=== PATIENT | female | born 1955 | race Caucasian/White ===

== ENCOUNTER → 2017-12-26 10:53 | Outpatient (CLI) | payer OTHER, SELFPAY ==
[2017-12-26 12:42] LABS: Alanine Aminotransferase 45 IU/L (9-52); Albumin 4.3 g/dL (3.5-5.0); Albumin Globulin Ratio 1.3 (1.0-2.8); Alkaline Phosphatase 77 U/L (38-126); Aspartate Aminotransferase 40 IU/L (14-36); Bilirubin Total 1.1 mg/dL (0.2-1.3); Bilirubin Unconjugated 0.7 mg/dL (0.0-1.1); Cholesterol 227 mg/dL (140-199); Globulin 3.2 g/dL (1.7-4.1); HDL Cholesterol 55 mg/dL (40-60); HEMOLYSIS < 15 (0-50); LDL Cholesterol Calculated 151 mg/dL (<100); Total Protein 7.5 g/dL (6.3-8.2); Triglycerides 106 mg/dL (35-150)
[2017-12-26 12:55] LABS: Free T3, Triiodothyronine Free 3.97 pg/mL (2.77-5.27); Free T4, Direct Thyroxine 1.57 ng/dL (0.78-2.19)
[2017-12-26 13:09] LABS: Thyroid Stimulating Hormone 0.31 uIU/mL (0.47-4.68)
== END ==
PROVIDERS: PCP Family Medicine; Visit Provider Family Medicine
DX: E78.5 Hyperlipidemia, unspecified (principal); R79.89 Other specified abnormal findings of blood chemistry; R94.5 Abnormal results of liver function studies
CPT/HCPCS: 36415; 80061; 80076; 84439; 84443; 84481

== ENCOUNTER → 2018-02-23 10:59 | Outpatient (CLI) | payer OTHER, SELFPAY ==
--- NOTE | 2018-02-23 11:00 | DI.MG.S_ITS ---
BILATERAL DIGITAL SCREENING MAMMOGRAM 3D/2D WITH CAD: 02/23/2018 CLINICAL: Routine screening. Comparison is made to exams dated: 04/12/2015 mammogram, 08/22/2006 mammogram, and 07/24/2005 mammogram - [facility]. The tissue of both breasts is heterogeneously dense. This may lower the sensitivity of mammography. Current study was also evaluated with a Computer Aided Detection (CAD) system. No significant masses, calcifications, or other findings are seen in either breast. There has been no significant interval change. IMPRESSION: NEGATIVE There is no mammographic evidence of malignancy. A 1 year screening mammogram is recommended. This exam was interpreted at Station ID: [id number]. NOTE: For mammograms, a report in lay terms will be sent to the patient. Approximately 15% of breast malignancies will not be visualized mammographically. In the management of a palpable breast mass, a negative mammogram must not discourage biopsy of a clinically suspicious lesion. Electronically Signed By: Brittani calderon/yanick:02/23/2018 12:34:26 letter sent: Normal Exam ACR BI-RADS Category 1: Negative [id number]
== END ==
PROVIDERS: Family Provider Internal Medicine Nephrology; PCP Family Medicine; Visit Provider Family Medicine
DX: Z12.31 Encounter for screening mammogram for malignant neoplasm of breast (principal)
CPT/HCPCS: 77063; 77067

== ENCOUNTER → 2018-07-22 11:10 | Outpatient (CLI) | payer OTHER, SELFPAY ==
--- NOTE | 2018-07-22 12:12 | DI.CT.S_ITS ---
PROCEDURE: CT ABDOMEN WO/W CON, CT PELVIS WITH CONTRAST INDICATIONS: cystinuria, pyelonephritis, obstructed calculus TECHNIQUE: Optional 5 mm thick noncontrast images acquired from the diaphragm to the iliac crests. After the administration of intravenous contrast, 5 mm thick images again acquired from the diaphragm to the iliac crests in the arterial and urographic phases. 5 mm thick coronal and sagittal reformats were then acquired. For radiation dose reduction, the following was used: automated exposure control, adjustment of mA and/or kV according to patient size. A CT of the pelvis with contrast was performed on the urographic phase. [facility] 03[facility]07[facility]2006, 16:35. FINDINGS: Image quality: Excellent. Lung bases: 5 mm noncalcified pulmonary nodule is identified in the right middle lobe on axial image 3 of series 6, in the left lower lobe on axial image 11 of series 6, and in the left lower lobe on axial image 14 of series 6. Heart size is normal. Genitourinary: There are postsurgical changes from prior right nephrectomy. There is a transplant kidney in the right hemipelvis. There is moderate perinephric fat stranding surrounding the right transplant kidney. There is heterogeneous enhancement of the right transplant renal parenchyma concerning for pyelonephritis there are large renal calculi within the transplant renal pelvis, largest measuring up to 2.5 cm in greatest diameter. There is a 0.9 cm oval hypoattenuating focus in the right transplant renal cortex on axial image 62 of series 5 that demonstrates partial peripheral contrast enhancement. There is no trip hydronephrosis of the right transplant kidney There are multiple nonobstructing nephroliths within the left kidney, largest measuring up to 3 mm in size in the anterior left kidney. No hydronephrosis. Subcentimeter hypoattenuating foci within the left kidney demonstrates no contrast enhancement and are most consistent with renal cysts. Excreted contrast identified within the bladder. no bladder stones or masses are identified. Other solid organs: Liver demonstrates diffuse hypoattenuation consistent with hepatic steatosis but is otherwise normal in size. Gallbladder demonstrates biliary sludge. Biliary system is non dilated. Pancreas enhances normally. Spleen is normal in size and enhancement. No adrenal nodules. Peritoneum and bowel: Unenhanced bowel loops are normal in wall thickness and caliber. No free fluid or air. A normal appendix is seen immediately anterior to the right hemipelvic transplant kidney. Nodes and vessels: No retroperitoneal or mesenteric adenopathy by size criteria. Aorta and inferior vena cava are normal in caliber. There is moderate calcified plaque of the abdominal aorta and branch vessels. Bones: No suspicious bony lesions. No vertebral body compression fractures. There is 3 mm of anterolisthesis of L4 on L5 secondary to lower lumbar spine facet arthropathy. Miscellaneous: There is a 1.0 cm fat-containing umbilical hernia. The uterus is present. No abnormal adnexal masses are identified. IMPRESSION: 1. Heterogeneous enhancement of the right transplant kidney concerning for pyelonephritis. A 0.9 cm hypoattenuating focus within the right transplant renal cortex may represent a cyst or developing abscess. Large renal calculi within the right transplant renal pelvis measure up to 2.5 cm in greatest diameter. No trip hydronephrosis of the right transplant kidney. Correlation with urinalysis recommended. 2. Nonobstructing nephroliths within the left kidney. No left hydronephrosis. 3. Multiple 5 mm bibasilar pulmonary nodules. A followup CT of the chest in 6 months is recommended to demonstrate stability. Findings and recommendations discussed with referring provider Dr. Jasmin Camarillo by telephone by Dr. Gan at approximately 2:50 PM on 07/22/2018. Dictated by: Gavino Gan M.D. on 07/22/2018 at 14:15 Approved by: Gavino Gan M.D. on 07/22/2018 at 15:02
== END ==
PROVIDERS: Family Provider Internal Medicine Nephrology; PCP Family Medicine; Visit Provider Family Medicine
DX: E72.01 Cystinuria (principal); N12 Tubulo-interstitial nephritis, not specified as acute or chronic; Z87.442 Personal history of urinary calculi
CPT/HCPCS: 36415; 74170; 80053; 85027; 87077; 87086; 87186; Q9967

== ENCOUNTER → 2018-07-22 11:58 | Outpatient (CLI) | payer OTHER, SELFPAY ==
[2018-07-22 12:16] LABS: Hematocrit 45.4 % (36-46); Hemoglobin 15.6 g/dL (12.0-16.0); Mean Corpuscular HGB Conc 34.3 % (30-36); Mean Corpuscular Hemoglobin 31.3 PG (26-34); Mean Corpuscular Volume 91.2 fL (80-100); Platelet Count 218 X10^3/uL (150-400); Red Blood Cell Count 4.97 X10^6/uL (4.0-5.2); Red Cell Distribution Width 12.7 % (11.6-14.8); White Blood Cell Count 10.9 X10^3/uL (4.5-11.0)
[2018-07-22 12:46] LABS: Alanine Aminotransferase 27 IU/L (9-52); Albumin 4.1 g/dL (3.5-5.0); Albumin Globulin Ratio 1.3 (1.0-2.8); Alkaline Phosphatase 76 U/L (38-126); Aspartate Aminotransferase 21 IU/L (14-36); BUN Creatinine Ratio 16.7 (6-22); Bilirubin Total 0.9 mg/dL (0.2-1.3); Blood Urea Nitrogen 20 mg/dL (7-17); Calcium 8.7 mg/dL (8.4-10.2); Carbon Dioxide 27 mmol/L (22-32); Chloride 94 mmol/L (98-107); Estimated Glomerular Filt Rate 45.7 mL/min (>60); Globulin 3.2 g/dL (1.7-4.1); Glucose 102 mg/dL (80-110); HEMOLYSIS < 15 (0-50); Potassium 4.1 mmol/L (3.4-5.1); Sodium 133 mmol/L (137-145); Total Protein 7.3 g/dL (6.3-8.2)
== END ==
PROVIDERS: Family Provider Internal Medicine Nephrology; PCP Family Medicine; Visit Provider Family Medicine
DX: E72.01 Cystinuria (principal); N12 Tubulo-interstitial nephritis, not specified as acute or chronic; Z87.442 Personal history of urinary calculi
CPT/HCPCS: 36415; 80053; 85027

== ENCOUNTER 2018-10-18 00:07 | Emergency (ER) | payer OTHER, SELFPAY ==
[2018-10-18 00:12] VITALS: BP 177/92; PULSE 96; RESP 22; TEMP 37; O2SAT 100; BMI 30.9
[2018-10-18] MEDS: methylPREDNISolone 125 MG/2 ML VIAL IV (00:20)
[2018-10-18] MEDS: FAMOTIDINE 20 MG/50 ML PIGGYBACK 200 MG IV (00:20)
--- NOTE | 2018-10-18 00:26 | ED_ITS ---
HPI - Allergic Reaction General Chief complaint: Allergic Reaction Stated complaint: Allergic Reaction Time Seen by Provider: 10/18/18 00:10 Source: patient Mode of arrival: EMS Limitations: no limitations History of Present Illness HPI narrative: Patient is a 62-year-old female. 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 She is not currently on steroids. Here for evaluation of a potential allergic reaction. Patient states that this evening she took 1st dose of Bactrim which initially she stated that she has taken in the past however after further evaluation she stated that was potentially her who has taken Bactrim in the past and not herself. This was prescribed by her primary doctor to take ?in case ?she ever develops any urinary tract symptoms because she has had complications with this in the past. She states that she started to develop dysuria so took a dose of the Bactrim earlier. She states that fairly shortly afterwards she started having problems breathing. Was having heaviness in her chest. Was having rashes. No nausea vomiting. Not 1 was called. They did give her Benadryl and also epinephrine prior to arrival. Upon arrival here in the emergency department she stated her symptoms were not completely gone but were improving tremendously. Related Data Home Medications Medication Instructions Recorded Confirmed gabapentin [Neurontin] 300 mg PO BID #0 07/30/17 09/16/18 hydrocodone 10 mg-acetaminophen 1 tab PO QID PRN 07/22/18 09/16/18 325 mg tablet Previous Rx's Medication Instructions Recorded atenolol 25 mg tablet 25 mg PO QDAY #90 tab 12/18/17 sulfamethoxazole 800 1 tab PO BID #14 tab 09/16/18 mg-trimethoprim 160 mg tablet epinephrine [EpiPen 2-Patricio] 0.3 mg IM Q10M PRN #1 each 10/18/18 Allergies Allergy/AdvReac Type Severity Reaction Status Date / Time sulfamethoxazole Allergy Severe Anaphylaxis Verified 10/18/18 00:49 [From Bactrim] trimethoprim [From Bactrim] Allergy Severe Anaphylaxis Verified 10/18/18 00:49 ciprofloxacin [CIPROFLOXACIN] Allergy Unknown Verified 09/16/18 11:55 PENICILLIN Allergy Unknown Uncoded 07/22/18 10:41 Review of Systems Constitutional Denies fever(s) ENT Ears, Nose, Mouth, and Throat: Reports lip swelling, Reports sore throat, Reports throat swelling and Reports tongue swelling Cardiovascular Reports dyspnea Comments: Chest heaviness Respiratory Reports dyspnea Gastrointestinal Gastrointestinal: Denies abdominal pain, Denies nausea and Denies vomiting Integumentary/Breasts Reports rash Neurologic Denies behavioral changes Psychiatric Denies behavioral changes Allergic/Immunologic Reports urticaria, Reports lip swelling, Reports throat swelling and Reports tongue swelling [facility] Medical History Hyperlipemia (Acute ~07/2017) Cystinuria (Chronic) Eczema (Chronic) Hypertension (Chronic) Kidney stones (Chronic) Rosacea (Chronic) Chickenpox (Resolved 1963) Fractures (Resolved 2014) Mumps (Resolved 1964) Social History Smoking Status: Never smoker alcohol intake: never Exam Initial Vital Signs Initial Vital Signs: Vital Signs Temperature 98.6 F 10/18/18 00:12 Pulse Rate 96 H 10/18/18 00:12 Respiratory Rate 22 10/18/18 00:12 Blood Pressure 177/92 H 10/18/18 00:12 Pulse Oximetry 100 10/18/18 00:12 Const General: cooperative, well developed, well groomed and No acute distress Orientation: alert, awake and oriented x3 HENMT Head: normal to inspection and normocephalic Nose: external nose normal Face and sinus: normal facial exam Mouth: oral mucosae normal Resp Effort & Inspection: normal respiratory effort Auscultation: clear to auscultation bilaterally Cardio Rate: regular rate Rhythm: regular rhythm Skin Lesions: no lesions Neuro General: alert and awake Cognition: normal cognition Speech: speech normal Extrem General: normal to inspection and capillary refill normal Psych Appearance: grossly normal and well kempt Course Orders Ordered: Discontinued Medications Famotidine (Pepcid) 20 mg in 50 mls @ 200 mls/hr IV NOW ONE Stop: 10/18/18 00:31 Last Infusion: 10/18/18 00:35 Dose: 0 mls/hr Admin: 10/18/18 00:20 Dose: 200 mls/hr Methylprednisolone (Solu-Medrol 125 Mg Vial) 125 mg IV NOW ONE Stop: 10/18/18 00:17 Last Admin: 10/18/18 00:20 Dose: 125 mg Vital Signs - 8 hr 10/18/18 00:12 10/18/18 00:52 10/18/18 01:30 Temperature 98.6 F Pulse Rate 96 H 82 79 Respiratory Rate 22 20 17 Blood Pressure 177/92 H Blood Pressure [Right Arm] 167/85 H 176/85 H Pulse Oximetry 100 97 97 MDM - Allergic Reaction MDM Narrative Medical decision making narrative: Patient was given famotidine and steroids here in the emergency department. She reported a complete resolution of her symptoms. Was observed here in the emergency department for 2 hours after she was given the epinephrine by EMS. We did discuss staying here in the emergency department longer for that there out occult concern of a rebound and a full axis however the patient stated that she did not want to stay and understood the risks of going home. Upon further evaluation does appear this was the 1st time that she has taken Bactrim. Informed her that she should not take this medication in the future. She stated that initially she thought she was have an symptoms consistent with urinary tract infection however she does not think that that is the case now. Will hold on switching any antibiotics. She states she will contact her primary provider for a follow-up. She was given a prescription for an EpiPen. She is given return precautions and follow-up instructions. She expressed understanding and agreement with plan. Discharge Plan Departure Patient Disposition: Home Clinical Impression: Anaphylaxis Qualifiers: Encounter type: initial encounter Qualified Code(s): T78.2XXA - Anaphylactic shock, unspecified, initial encounter Allergic reaction Qualifiers: Encounter type: initial encounter Qualified Code(s): T78.40XA - Allergy, unspecified, initial encounter Discharge Date/Time: 10/18/18 01:50 Interventions: ED Discharge Assessment Last Done: 10/18/18 01:50 Instructions: DI for Anaphylaxis, DI for Adverse Drug Reaction -- Allergic Activity Restrictions/Additional Instructions: I would recommend that you consider yourself allergic to Bactrim. Contact your primary care doctor for a follow-up. Return to the emergency department for any new or worsening symptoms like we discussed. Prescriptions: New epinephrine [EpiPen 2-Patricio] 0.3 mg/0.3 mL auto-injector 0.3 mg IM Q10M PRN (Reason: anaphylaxis) Qty: 1 RF: 0 No Action hydrocodone-acetaminophen [[place]] 10-325 mg tablet 1 tab PO QID PRNRF: 0 gabapentin [Neurontin] 600 MG tablet 300 mg PO BID Qty: 0 RF: 0 atenolol 25 mg tablet 25 mg PO QDAY Qty: 90 RF: 0 sulfamethoxazole-trimethoprim [Bactrim DS] 800-160 mg tablet 1 tab PO BID Qty: 14 RF: 1 Referrals: Jasmin Camarillo DO [Primary Care Provider] -
[2018-10-18 00:52] VITALS: BP 167/85; PULSE 82; RESP 20; O2SAT 97
[2018-10-18 01:30] VITALS: BP 176/85; PULSE 79; RESP 17; O2SAT 97
== END 2018-10-18 01:50 | disposition home or self-care (01) ==
PROVIDERS: Emergency Provider Emergency Medicine; Family Provider Internal Medicine Nephrology; PCP Family Medicine
DX: T78.2XXA Anaphylactic shock, unspecified, initial encounter (principal); T78.40XA Allergy, unspecified, initial encounter
CPT/HCPCS: 96374; 96375; 99283; 99284; J2930

== ENCOUNTER → 2019-02-23 13:52 | Outpatient (CLI) | payer OTHER, SELFPAY ==
--- NOTE | 2019-02-23 13:54 | DI.RAD.S_ITS ---
PROCEDURE: XR ANKLE RT MIN 3V INDICATIONS: ankle pain TECHNIQUE: 3 views of the ankle were acquired. COMPARISON: [facility], , ANKLE 3 VIEWS LEFT, 05/03/2014, 12:18. FINDINGS: Bones: No fractures or dislocations. Ankle mortise is normally aligned. No suspicious bony lesions. Soft tissues: Mild swelling over both malleoli. Small tibiotalar joint effusion. Achilles tendon appears normal. IMPRESSION: No acute osseous abnormality. Swelling over both malleoli and small tibiotalar joint effusion. Dictated by: Orlin Acuña M.D. on 02/23/2019 at 14:26 Approved by: Orlin Acuña M.D. on 02/23/2019 at 14:29
--- NOTE | 2019-02-23 13:54 | DI.RAD.S_ITS ---
PROCEDURE: XR FOOT RT MIN 3V INDICATIONS: ankle pain TECHNIQUE: 3 views of the foot were acquired. COMPARISON: Same day right ankle radiographs. FINDINGS: Bones: Oblique fracture through the distal one third of the fifth metatarsal shaft. Minimal displacement. No dislocations. No suspicious bony lesions. Soft tissues: No tibiotalar joint effusion. Achilles tendon appears normal. IMPRESSION: Right fifth metatarsal shaft fracture with minimal displacement. Dictated by: Orlin Acuña M.D. on 02/23/2019 at 14:29 Approved by: Orlin Acuña M.D. on 02/23/2019 at 14:31
== END ==
PROVIDERS: Family Provider Internal Medicine Nephrology; PCP Family Medicine; Visit Provider Nurse Practitioner
DX: M25.571 Pain in right ankle and joints of right foot (principal); S92.351A Displaced fracture of fifth metatarsal bone, right foot, initial encounter for closed fracture; M25.471 Effusion, right ankle
CPT/HCPCS: 73610; 73630

== ENCOUNTER → 2019-04-30 07:39 | Outpatient (CLI) | payer OTHER, SELFPAY ==
[2019-04-30 08:51] LABS: Add Manual Diff / Slide Review NO; Basophils Absolute Auto 100 /uL (0-100); Basophils Percent Auto 0.8 % (0-2); Eosinophils Absolute Auto 300 /uL (0-450); Eosinophils Percent Auto 4.9 % (2-4); Hematocrit 44.7 % (36-46); Hemoglobin 15.3 g/dL (12.0-16.0); Lymphocytes Absolute Auto 2000 /uL (1100-4500); Lymphocytes Percent Auto 32.1 % (25-40); Mean Corpuscular HGB Conc 34.2 % (30-36); Mean Corpuscular Hemoglobin 31.8 PG (26-34); Monocytes Absolute Auto 500 /uL (0-900); Monocytes Percent Auto 8.1 % (3-14); Neutrophils Absolute Auto 3300 /uL (1500-7000); Neutrophils Percent Auto 54.1 % (50-75); Platelet Count 217 X10^3/uL (150-400); Red Cell Distribution Width 13.6 % (11.6-14.8); White Blood Cell Count 6.2 X10^3/uL (4.5-11.0)
[2019-04-30 09:11] LABS: Alanine Aminotransferase 33 IU/L (<35); Albumin 4.4 g/dL (3.5-5.0); Albumin Globulin Ratio 1.3 (1.0-2.8); Alkaline Phosphatase 62 U/L (38-126); Aspartate Aminotransferase 34 IU/L (14-36); Bilirubin Total 1.1 mg/dL (0.2-1.3); Blood Urea Nitrogen 19 mg/dL (7-17); Calcium 9.3 mg/dL (8.4-10.2); Carbon Dioxide 33 mmol/L (22-32); Chloride 100 mmol/L (98-107); Cholesterol 252 mg/dL (140-199); Estimated Glomerular Filt Rate 56.2 mL/min (>60); Globulin 3.5 g/dL (1.7-4.1); Glucose 99 mg/dL (80-110); HDL Cholesterol 47 mg/dL (40-60); HEMOLYSIS < 15 (0-50); LDL Cholesterol Calculated 182 mg/dL (<100); Potassium 4.2 mmol/L (3.4-5.1); Sodium 140 mmol/L (137-145); Total Protein 7.9 g/dL (6.3-8.2); Triglycerides 117 mg/dL (35-150); Uric Acid 7.2 mg/dL (2.5-6.2)
[2019-04-30 09:28] LABS: Free T4, Direct Thyroxine 1.26 ng/dL (0.78-2.19)
[2019-04-30 09:42] LABS: Thyroid Stimulating Hormone 0.65 uIU/mL (0.47-4.68)
== END ==
PROVIDERS: Family Provider Internal Medicine Nephrology; PCP Family Medicine; Visit Provider Family Medicine
DX: E72.01 Cystinuria (principal); E78.5 Hyperlipidemia, unspecified; E79.0 Hyperuricemia without signs of inflammatory arthritis and tophaceous disease; N28.9 Disorder of kidney and ureter, unspecified; R79.89 Other specified abnormal findings of blood chemistry
CPT/HCPCS: 36415; 80053; 80061; 84439; 84443; 84481; 84550; 85025

== ENCOUNTER 2020-01-06 05:14 | Inpatient (IN) | payer OTHER, SELFPAY ==
[2020-01-06] VITALS (14 sets, daily range): BP systolic 111–196; BP diastolic 66–111; PULSE 98–130; RESP 16–31; TEMP 36.6–37.8; O2SAT 94–100; BMI 29.1
--- NOTE | 2020-01-06 05:17 | ED_ITS ---
HPI - General Adult General Chief complaint: Abdominal Pain Stated complaint: RLQ pain Time Seen by Provider: 01/06/20 05:16 Source: patient Mode of arrival: EMS Limitations: no limitations History of Present Illness HPI narrative: Patient is a 64-year-old female here for evaluation of right lower quadrant abdominal pain. Patient's history significant that she recently was placed on doxycycline for treatment of rosacea. She stated that she only took this medication for very short period of time and developed abdominal pain and nausea vomiting and diarrhea. She quit taking this medication approximately 3 days ago because of these symptoms. She has had diarrhea since then. States that last evening she had right lower quadrant pain that became acutely worse. Nausea and vomiting associated with this. EMS was called and brought her to the emergency department. She received 200 micro g of fentanyl and IV fluids prior to arrival. In route here to the emergency department patient developed acute right shoulder pain. She also now has pain in her right upper quadrant. Patient has had multiple kidney stones in the past. Has had a auto transplant of her right kidney in her right lower quadrant secondary to this. She states this does not feel like prior kidney stones. Last oral intake was before midnight last evening. She states that was only a very small sip of water. Before that her last meal was 24 hours ago. Related Data Home Medications Medication Instructions Recorded Confirmed hydrocodone 10 mg-acetaminophen 1 tab PO QID PRN 07/22/18 02/23/19 325 mg tablet Previous Rx's Medication Instructions Recorded epinephrine 0.3 mg/0.3 mL 0.3 mg IM Q10M PRN #1 each 10/26/18 injection, auto-injector atenolol 25 mg tablet 25 mg PO QDAY #90 tab 07/06/19 Allergies Allergy/AdvReac Type Severity Reaction Status Date / Time sulfamethoxazole Allergy Severe Anaphylaxis Verified 05/19/19 08:12 [From Bactrim] trimethoprim [From Bactrim] Allergy Severe Anaphylaxis Verified 05/19/19 08:12 ciprofloxacin [CIPROFLOXACIN] Allergy Unknown Verified 05/19/19 08:12 Penicillins Allergy Unknown Verified 01/06/20 06:43 PENICILLIN Allergy Unknown Uncoded 05/19/19 08:12 Review of Systems Constitutional Constitutional: Reports fever(s) Cardiovascular Cardiovascular: Denies chest pain Respiratory Respiratory: Reports pain on inspiration Gastrointestinal Gastrointestinal: Reports abdominal pain, Denies melena, Denies hematochezia, Reports diarrhea, Reports nausea and Reports vomiting Genitourinary Genitourinary: Denies dysuria Genitourinary: Denies dysuria and Denies vaginal discharge Musculoskeletal Musculoskeletal: Denies arthralgias and Denies myalgias Integumentary/Breasts Skin/Breast: Denies rash Neurologic Neurologic: Denies behavioral changes Psychiatric Psychiatric: Denies behavioral changes Hematologic/Lymphatic Hematologic/Lymphatic: Denies easy bleeding and Denies easy bruising Allergic/Immunologic Allergic/Immunologic: Denies urticaria Patient History Medical History Chickenpox (Resolved 1963) Cystinuria (Chronic) Eczema (Chronic) Fractures (Resolved 2014) Hyperlipemia (Acute ~07/2017) Hypertension (Chronic) Kidney stones (Chronic) Mumps (Resolved 1964) Rosacea (Chronic) Surgical History Hx of lithotripsy (Resolved ~1985) Hx of surgical procedure (Resolved) Hx of tonsillectomy (Resolved) Status post kidney autotransplantation (Resolved 1987) Family History Father Cancer Mother No problems noted. Social History Smoking Status: Never smoker alcohol intake: never Smoking Status: Never smoker Substance Use Type: does not use Exam Initial Vital Signs Initial Vital Signs: Vital Signs Temperature 99.5 F 01/06/20 05:21 Pulse Rate 124 H 01/06/20 05:21 Respiratory Rate 24 01/06/20 05:21 Blood Pressure 196/91 H 01/06/20 05:21 Pulse Oximetry 95 01/06/20 05:21 Const General: cooperative, No comfortable, in distress and disheveled Limitations: mental status not altered HENWV Head: normal to inspection and normocephalic Resp Effort & Inspection: normal respiratory effort Auscultation: clear to auscultation bilaterally Cardio Rate: tachycardic Rhythm: regular rhythm GI Inspection: non-distended Palpation: soft and tender (Right lower quadrant and right upper quadrant) Back/Spine/Pelvis Back: No CVA tenderness Skin Other: Rash on face consistent with rosacea Neuro General: patient alert and patient awake Cognition: normal cognition Speech: speech normal Extrem General: normal to inspection, capillary refill normal and No edema Psych Appearance: grossly normal and well kempt Scores GCS [place] coma scale eye opening: Spontaneous [place] coma scale verbal response: Orientated [place] coma scale motor response: Obey commands [place] coma scale total score: 15 Course Orders Ordered: ED Orders 01/06/20 05:00 Complete Blood Count AUTO DIFF Stat Comprehensive Metabolic Panel Stat Lipase Stat 01/06/20 05:18 CT abdomen pelvis w con Stat 01/06/20 05:24 EKG-12 Lead Stat 01/06/20 06:30 COVID19 -ED/INPAT/OR/L&D Stat 01/06/20 06:36 Consult to General Surgery Urgent Hydromorphone HCl (Dilaudid) 1 mg IV Q4HR PRN PRN Reason: Pain, Mild (1-3) Meropenem (Merrem) 1 gm in 50 mls @ 100 mls/hr IV NOW ONE Stop: 01/06/20 07:04 Sodium Chloride (Normal Saline 0.9%) 1,000 mls @ 125 mls/hr IV CONT NASRIN Ondansetron HCl (Zofran) 4 mg IV Q4HR PRN PRN Reason: Nausea And Vomiting Discontinued Medications Hydromorphone HCl (Dilaudid) 1 mg IV NOW ONE Stop: 01/06/20 06:11 Last Admin: 01/06/20 06:14 Dose: 1 mg Documented by: YVONNE Sodium Chloride (Normal Saline 0.9%) 1,000 mls @ 1,000 mls/hr IV BOLUS ONE Stop: 01/06/20 06:17 Last Admin: 01/06/20 05:36 Dose: 1,000 mls/hr Documented by: YVONNE Ondansetron HCl (Zofran) 4 mg IV NOW ONE Stop: 01/06/20 05:29 Last Admin: 01/06/20 05:35 Dose: 4 mg Documented by: YVONNE Vital Signs Vital signs: Vital Signs - 8 hr 01/06/20 05:21 01/06/20 05:45 01/06/20 06:18 Temperature 99.5 F Pulse Rate 124 H 120 H 122 H Respiratory Rate 24 24 24 Blood Pressure 196/91 H 180/86 H 186/84 H Pulse Oximetry 95 98 98 Medical Decision Making Lab Data Lab results reviewed: Yes I reviewed the patient's lab results. Result diagrams: 01/06/20 05:00 01/06/20 05:00 Labs: Lab Results 01/06/20 01/06/20 01/06/20 Range/Units 05:00 05:00 05:00 WBC 19.5 H (4.5-11.0) X10^3/uL RBC 4.74 (4.0-5.2) X10^6/uL Hgb 15.2 (12.0-16.0) g/dL Hct 44.4 (36-46) % MCV 93.7 (80-100) fL MCH 32.1 (26-34) PG MCHC 34.3 (30-36) % RDW 13.0 (11.6-14.8) % Plt Count 218 (150-400) X10^3/uL Neut % (Auto) 79.1 H (50-75) % Lymph % (Auto) 11.7 L (25-40) % [place] % (Auto) 8.6 (3-14) % Eos % (Auto) 0.5 L (2-4) % Baso % (Auto) 0.1 (0-2) % Neut # (Auto) 19864 H (7491-4361) /uL Lymph # (Auto) 2300 (3670-4430) /uL [place] # (Auto) 1700 H (0-900) /uL Eos # (Auto) 100 (0-450) /uL Baso # (Auto) 0 (0-100) /uL Sodium 134 L (137-145) mmol/L Potassium 3.7 (3.4-5.1) mmol/L Chloride 96 L (98-107) mmol/L Carbon Dioxide 27 (22-32) mmol/L BUN 16 (7-17) mg/dL Creatinine 1.14 H (0.52-1.04) mg/dL Estimated GFR 48.1 L (>60) mL/min BUN/Creatinine Ratio 14.0 (6-22) Glucose 179 H (80-110) mg/dL Calcium 9.1 (8.4-10.2) mg/dL Total Bilirubin 1.8 H (0.2-1.3) mg/dL AST 38 H (14-36) IU/L ALT 59 H (<35) IU/L Alkaline Phosphatase 88 (38-126) U/L Total Protein 8.3 H (6.3-8.2) g/dL Albumin 4.3 (3.5-5.0) g/dL Globulin 4.0 (1.7-4.1) g/dL Albumin/Globulin Ratio 1.1 (1.0-2.8) Lipase 52 (23-300) U/L Imaging Data CT scan - abdomen/pelvis: Radiologist's Impression: Appendix is dilated with extensive periappendiceal him pericecal inflammatory changes compatible with acute appendicitis with likely rupture given the ted of pneumoperitoneum within the right upper abdomen. Right lower quadrant transplant kidney with staghorn calculi. Postsurgical findings of right nephrectomy. Hepatic steatosis. ECG Data Attestation: I personally reviewed and interpreted this ECG as follows: Prior ECG tracings: not available for review Interpretation: Sinus tachycardia Ventricular rate 122 LVH Normal QRS Normal QTC No ST T wave changes MDM Narrative Medical decision making narrative: Patient very uncomfortable upon exam. Initially started with right lower quadrant pain but now has right upper quadrant pain as well. Tachycardic. Leukocytosis. CT scan shows findings consistent with appendicitis with likely rupture given the pneumoperitoneum in the right upper quadrant. This is most likely cause of her right shoulder pain. Discussed the case with Dr. Pérez with General surgery who will admit. Patient does have a allergy to penicillin. Meropenem was ordered per his recommendation. Discussed the findings on the CT scan with the patient and the need for admission and surgical intervention. Patient expressed understanding and agreement. Discharge Plan Departure Patient Disposition: Admitted As Inpatient Clinical Impression: Acute appendicitis Qualifiers: Acute appendicitis type: with localized peritonitis Appendicitis gangrene presence: without gangrene Appendicitis perforation presence: with perforation Appendicitis abscess presence: without abscess Qualified Code(s): K35.32 - Acute appendicitis with perforation and localized peritonitis, without abscess Referrals: Jasmin Camarillo DO [Primary Care Provider] -
--- NOTE | 2020-01-06 05:18 | DI.CT.S_ITS ---
PROCEDURE: CT ABDOMEN PELVIS W CON INDICATIONS: Right lower quadrant abdominal pain TECHNIQUE: After the administration of intravenous contrast, 5 mm thick sections acquired from the diaphragm to the symphysis. 5 mm coronal and sagittal reformats were acquired. For radiation dose reduction, the following was used: automated exposure control, adjustment of mA and/or kV according to patient size. COMPARISON: [facility], CT, CT ABDOMEN WO/W CON, 07/22/2018, 12:47. FINDINGS: Image quality: Excellent. ABDOMEN: Lung bases: A few small pulmonary nodules at the lung bases, unchanged since 07/22/2018. No pleural effusion. Heart size is normal. Coronary artery calcifications. Solid organs: Liver is normal in size. Hepatic steatosis. Gallbladder is unremarkable. Biliary system is non dilated. Pancreas enhances normally. Spleen is normal in size and enhancement. No adrenal nodules. Right nephrectomy with trace free air under the right lobe of the liver. Left kidney enhancement is within normal limits. A small simple cyst in the left kidney. Cortical hypodensities which are too small to further characterize. Punctate nonobstructing kidney stone left kidney. No hydronephrosis. Transplant kidney in the right lower quadrant with expected enhancement. There is mild to moderate fat stranding and trace fluid density surrounding the transplant kidney, increased. The transplant kidney demonstrates areas of cortical scarring and the small renal cysts. The staghorn calculi involving the transplant kidney, similar to before. No hydronephrosis of the transplant kidney. Peritoneum and bowel: The appendix in the right lower quadrant is dilated measuring up to 1.4 cm. There is a large appendicoliths. There is a surrounding inflammatory change and trace free fluid. This extends to the adjacent right lower quadrant transplant kidney and in the pericolic gutter punctate focus of free air underneath the right lobe of the liver. No small bowel obstruction. Nodes and vessels: No retroperitoneal or mesenteric adenopathy by size criteria. Aorta and inferior vena cava are normal in size. Calcified atherosclerotic plaque. Miscellaneous: No ventral hernias. PELVIS: Genitourinary: Right dome ureteral insertion. Bladder is only partially distended. Miscellaneous: No inguinal hernias or adenopathy. Bones: No suspicious bony lesions. No vertebral body compression fractures. IMPRESSION: 1. Acute appendicitis with suspected rupture given the punctate focus of gas under the right lobe of the liver. Mild free fluid surrounding the appendix. 2. Right lower quadrant transplant kidney. No hydronephrosis. Similar staghorn calculi. Additional findings: Right nephrectomy. Hepatic steatosis. This report is concordant with the overnight preliminary interpretation. Dictated by: Orlin Acuña M.D. on 01/06/2020 at 8:24 Approved by: Orlin Acuña M.D. on 01/06/2020 at 8:46
[2020-01-06] MEDS: ONDANSETRON 4 MG/2 ML INJ IV (05:35)
[2020-01-06] MEDS: SODIUM CHLORIDE 0.9% 1,000 ML 1000 ML IV ×2 (05:36→20:34)
[2020-01-06 05:39] LABS: Add Manual Diff / Slide Review NO; Alanine Aminotransferase 59 IU/L (<35); Albumin 4.3 g/dL (3.5-5.0); Albumin Globulin Ratio 1.1 (1.0-2.8); Alkaline Phosphatase 88 U/L (38-126); Aspartate Aminotransferase 38 IU/L (14-36); Basophils Absolute Auto 0 /uL (0-100); Basophils Percent Auto 0.1 % (0-2); Bilirubin Total 1.8 mg/dL (0.2-1.3); Blood Urea Nitrogen 16 mg/dL (7-17); Calcium 9.1 mg/dL (8.4-10.2); Carbon Dioxide 27 mmol/L (22-32); Chloride 96 mmol/L (98-107); Eosinophils Absolute Auto 100 /uL (0-450); Eosinophils Percent Auto 0.5 % (2-4); Estimated Glomerular Filt Rate 48.1 mL/min (>60); Glucose 179 mg/dL (80-110); HEMOLYSIS < 15 (0-50); Hematocrit 44.4 % (36-46); Hemoglobin 15.2 g/dL (12.0-16.0); Lipase 52 U/L (23-300); Lymphocytes Absolute Auto 2300 /uL (1100-4500); Lymphocytes Percent Auto 11.7 % (25-40); Mean Corpuscular HGB Conc 34.3 % (30-36); Mean Corpuscular Hemoglobin 32.1 PG (26-34); Mean Corpuscular Volume 93.7 fL (80-100); Monocytes Absolute Auto 1700 /uL (0-900); Monocytes Percent Auto 8.6 % (3-14); Neutrophils Absolute Auto 15400 /uL (1500-7000); Neutrophils Percent Auto 79.1 % (50-75); Platelet Count 218 X10^3/uL (150-400); Potassium 3.7 mmol/L (3.4-5.1); Red Blood Cell Count 4.74 X10^6/uL (4.0-5.2); Sodium 134 mmol/L (137-145); Total Protein 8.3 g/dL (6.3-8.2); White Blood Cell Count 19.5 X10^3/uL (4.5-11.0)
[2020-01-06] MEDS: HYDROMORPHONE 1 MG INJ IV ×7 (06:14→22:52)
[2020-01-06] MEDS: MEROPENEM 1 GM/50 ML PIGGYBACK IV ×2 (06:59→18:51)
[2020-01-06] MEDS: HYDROMORPHONE 2 MG INJ 1 MG IV (07:05)
[2020-01-06 07:51] LABS: COVID19 -Nasal RAPID Negative (Negative)
--- NOTE | 2020-01-06 07:54 | PM.HP.1 ---
History of Present Illness History of Present Illness Date Patient Seen: 01/06/20 Time Patient Seen: 07:55 Chief complaint: RLQ pain Narrative: This is a 64 y.o woman seen in the ER for evaluation of acute appendicitis. She had 2 days of generalized abdominal pain last night becoming focused in the right lower quadrant. Associated nausea vomiting and now right shoulder pain. At admission WBC 19, tachycardic to 130. CT A/P demonstrates acute perforated appendicitis there is a speck of free air in the upper abdomen and Patient History Medical History Chickenpox (Resolved 1963) Cystinuria (Chronic) Eczema (Chronic) Fractures (Resolved 2014) Hyperlipemia (Acute ~07/2017) Hypertension (Chronic) Kidney stones (Chronic) Mumps (Resolved 1964) Rosacea (Chronic) Surgical History Hx of lithotripsy (Resolved ~1985) Hx of surgical procedure (Resolved) Hx of tonsillectomy (Resolved) Status post kidney autotransplantation (Resolved 1987) Family & Social History Family History Father Cancer Mother No problems noted. Safety & Behavioral: Feels Safe in Current Yes Environment Tobacco & Substance use: Smoking Status Never smoker alcohol intake never Substance Use Type does not use Meds Home Medications and Allergies Home Medications Medication Instructions Recorded Confirmed Type hydrocodone 10 mg-acetaminophen 1 tab PO QID PRN 07/22/18 02/23/19 History 325 mg tablet epinephrine 0.3 mg/0.3 mL 0.3 mg IM Q10M PRN #1 each 10/26/18 02/23/19 Rx injection, auto-injector atenolol 25 mg tablet 25 mg PO QDAY #90 tab 07/06/19 Rx Allergies Allergy/AdvReac Type Severity Reaction Status Date / Time sulfamethoxazole Allergy Severe Anaphylaxis Verified 05/19/19 08:12 [From Bactrim] trimethoprim [From Bactrim] Allergy Severe Anaphylaxis Verified 05/19/19 08:12 ciprofloxacin [CIPROFLOXACIN] Allergy Unknown Verified 05/19/19 08:12 Penicillins Allergy Unknown Verified 01/06/20 06:59 Exam Vital Signs (past 8 hours): - 01/06/20 05:21 01/06/20 05:45 01/06/20 06:18 Temperature 99.5 F Pulse Rate 124 H 120 H 122 H Respiratory Rate 24 24 24 Blood Pressure 196/91 H 180/86 H 186/84 H Pulse Oximetry 95 98 98 01/06/20 07:00 Temperature Pulse Rate 129 H Respiratory Rate 31 H Blood Pressure 181/111 H Pulse Oximetry 98 Oxygen Delivery Method Nasal Cannula Oxygen Flow Rate 4 Objective Labs Result Diagrams: 01/06/20 05:00 01/06/20 05:00 Labs: Laboratory Results - last 24 hr 01/06/20 01/06/20 01/06/20 05:00 05:00 05:00 WBC 19.5 H RBC 4.74 Hgb 15.2 Hct 44.4 MCV 93.7 MCH 32.1 MCHC 34.3 RDW 13.0 Plt Count 218 Neut % (Auto) 79.1 H Lymph % (Auto) 11.7 L [place] % (Auto) 8.6 Eos % (Auto) 0.5 L Baso % (Auto) 0.1 Neut # (Auto) 46443 H Lymph # (Auto) 2300 [place] # (Auto) 1700 H Eos # (Auto) 100 Baso # (Auto) 0 Sodium 134 L Potassium 3.7 Chloride 96 L Carbon Dioxide 27 BUN 16 Creatinine 1.14 H Estimated GFR 48.1 L BUN/Creatinine Ratio 14.0 Glucose 179 H Calcium 9.1 Total Bilirubin 1.8 H AST 38 H ALT 59 H Alkaline Phosphatase 88 Total Protein 8.3 H Albumin 4.3 Globulin 4.0 Albumin/Globulin Ratio 1.1 Lipase 52 COVID-19 PCR 01/06/20 06:15 WBC RBC Hgb Hct MCV MCH MCHC RDW Plt Count Neut % (Auto) Lymph % (Auto) [place] % (Auto) Eos % (Auto) Baso % (Auto) Neut # (Auto) Lymph # (Auto) [place] # (Auto) Eos # (Auto) Baso # (Auto) Sodium Potassium Chloride Carbon Dioxide BUN Creatinine Estimated GFR BUN/Creatinine Ratio Glucose Calcium Total Bilirubin AST ALT Alkaline Phosphatase Total Protein Albumin Globulin Albumin/Globulin Ratio Lipase COVID-19 PCR Negative
[2020-01-06] MEDS: SODIUM CHLORIDE 0.9% 1,000 ML 125 ML IV ×3 (08:07→20:34)
[2020-01-06] MEDS: HYDROMORPHONE 0.5 MG INJ IV (08:08)
[2020-01-06 09:31] LABS: Appearance Urine UA SL CLOUDY; Bilirubin Urine UA NEGATIVE (NEGATIVE); Color Urine UA YELLOW; Glucose Urine UA TRACE g/dL (Negative); Ketones Urine UA NEGATIVE (NEGATIVE); Leukocyte Esterase Urine UA NEGATIVE (NEGATIVE); Nitrite Urine UA NEGATIVE (Negative); Occult Blood Urine UA TRACE-INTACT (Negative); Protein Urine UA 1+ (Negative); Specific Gravity Urine UA <=1.005 (1.000-1.035); Urobilinogen Urine UA 0.2 E.U./dL (0.2)
[2020-01-06] MEDS: atenoloL 25 MG TABLET PO (09:32)
[2020-01-06 11:34] LABS: RBC Urine 1-5/HPF (0-5/HPF); WBC Urine 5-10/HPF (0-5/HPF); pH Urine UA 6.5 (4.5-8.0)
[2020-01-06 11:35] LABS: Bacteria Urine Few (2-10); Squamous Epithelial Cell Urine 5-10 /HPF (0-5/HPF)
[2020-01-06 11:36] LABS: Culture Indicated Urine Cult Not Indicated
[2020-01-06] MEDS: ACETAMINOPHEN 325 MG TABLET 650 MG PO (18:47)
[2020-01-06] MEDS: OXYCODONE IR 5 MG TABLET PO ×2 (18:47→21:58)
[2020-01-06] MEDS: atenoloL 25 MG TABLET 12.5 MG PO (18:51)
--- NOTE | 2020-01-06 19:21 | PM.HP.1 ---
History of Present Illness History of Present Illness Chief complaint: RLQ pain Narrative: This is a 64 y.o woman seen in the ER for evaluation of acute appendicitis. She had 2 days of generalized abdominal pain last night becoming focused in the right lower quadrant. Associated nausea vomiting and now right shoulder pain. At admission WBC 19, tachycardic to 130. CT A/P demonstrates acute perforated appendicitis with associated inflammation of the cecum, free fluid and a small amount of free air in the upper abdomen. She has a auto transplanted right kidney which is in her right pericolic gutter adjacent to the appendix. 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 Patient History Medical History Chickenpox (Resolved 1963) Cystinuria (Chronic) Eczema (Chronic) Fractures (Resolved 2014) Hyperlipemia (Acute ~07/2017) Hypertension (Chronic) Kidney stones (Chronic) Mumps (Resolved 1964) Rosacea (Chronic) Surgical History Hx of lithotripsy (Resolved ~1985) Hx of surgical procedure (Resolved) Hx of tonsillectomy (Resolved) Status post kidney autotransplantation (Resolved 1987) Family & Social History Family History Father Cancer Mother No problems noted. Social History: household members spouse Prior Living Arrangements House Safety & Behavioral: Feels Safe in Current Yes Environment Been Physically Hurt or No Threatened By a Person Suicidal Ideation Description None Suicide Plan Description No Plan Tobacco & Substance use: Smoking Status Never smoker alcohol intake never Substance Use Type does not use Meds Home Medications and Allergies Home Medications Medication Instructions Recorded Confirmed Type hydrocodone 10 mg-acetaminophen 1 tab PO QID PRN 07/22/18 01/06/20 History 325 mg tablet epinephrine 0.3 mg/0.3 mL 0.3 mg IM Q10M PRN #1 each 10/26/18 01/06/20 Rx injection, auto-injector atenolol 25 mg tablet 25 mg PO QDAY #90 tab 07/06/19 01/06/20 Rx Allergies Allergy/AdvReac Type Severity Reaction Status Date / Time sulfamethoxazole Allergy Severe Anaphylaxis Verified 05/19/19 08:12 [From Bactrim] trimethoprim [From Bactrim] Allergy Severe Anaphylaxis Verified 05/19/19 08:12 ciprofloxacin [CIPROFLOXACIN] Allergy Unknown Verified 05/19/19 08:12 Penicillins Allergy Unknown Verified 01/06/20 06:59 Review of Systems Review of Systems Narrative: A 10 point review of systems is negative except as noted in the HPI Exam Vital Signs (past 8 hours): - 01/06/20 13:55 01/06/20 15:10 Temperature 98.5 F 99.4 F Pulse Rate 115 H 104 H Respiratory Rate 21 19 Blood Pressure 161/95 H 143/66 H Pulse Oximetry 95 95 Oxygen Delivery Method Nasal Cannula Oxygen Flow Rate 2 Narrative Exam Narrative: General-adult female well nourished uncomfortable in appearance HEENT-moist mucous membranes, no scleral icterus Neck-supple, no lymphadenopathy Chest- non labored respirations, clear to auscultation bilaterally Cardiac-sinus tachycardia no peripheral edema Abdomen-guarding, focal peritonitis right lower quadrant. Extremities-warm, well perfused Neurological-alert and oriented, no focal deficits Objective Labs Result Diagrams: 01/06/20 05:00 01/06/20 05:00 Labs: Laboratory Results - last 24 hr 01/06/20 01/06/20 01/06/20 05:00 05:00 05:00 WBC 19.5 H RBC 4.74 Hgb 15.2 Hct 44.4 MCV 93.7 MCH 32.1 MCHC 34.3 RDW 13.0 Plt Count 218 Neut % (Auto) 79.1 H Lymph % (Auto) 11.7 L [place] % (Auto) 8.6 Eos % (Auto) 0.5 L Baso % (Auto) 0.1 Neut # (Auto) 33723 H Lymph # (Auto) 2300 [place] # (Auto) 1700 H Eos # (Auto) 100 Baso # (Auto) 0 Sodium 134 L Potassium 3.7 Chloride 96 L Carbon Dioxide 27 BUN 16 Creatinine 1.14 H Estimated GFR 48.1 L BUN/Creatinine Ratio 14.0 Glucose 179 H Calcium 9.1 Total Bilirubin 1.8 H AST 38 H ALT 59 H Alkaline Phosphatase 88 Total Protein 8.3 H Albumin 4.3 Globulin 4.0 Albumin/Globulin Ratio 1.1 Lipase 52 Urine Color Urine Appearance Urine pH Ur Specific [place] Urine Protein Urine Glucose (UA) Urine Ketones Urine Occult Blood Urine Nitrate Urine Bilirubin Urine Urobilinogen Ur Leukocyte Esterase Urine RBC Urine WBC Ur Squamous Epith Cells Other Crystals Urine Bacteria Ur Culture Indicated? COVID-19 PCR 01/06/20 01/06/20 06:15 08:50 WBC RBC Hgb Hct MCV MCH MCHC RDW Plt Count Neut % (Auto) Lymph % (Auto) [place] % (Auto) Eos % (Auto) Baso % (Auto) Neut # (Auto) Lymph # (Auto) [place] # (Auto) Eos # (Auto) Baso # (Auto) Sodium Potassium Chloride Carbon Dioxide BUN Creatinine Estimated GFR BUN/Creatinine Ratio Glucose Calcium Total Bilirubin AST ALT Alkaline Phosphatase Total Protein Albumin Globulin Albumin/Globulin Ratio Lipase Urine Color Yellow Urine Appearance Sl cloudy Urine pH 6.5 Ur Specific [place] <=1.005 Urine Protein 1+ H Urine Glucose (UA) Trace H Urine Ketones Negative Urine Occult Blood Trace-intact Urine Nitrate Negative Urine Bilirubin Negative Urine Urobilinogen 0.2 Ur Leukocyte Esterase Negative Urine RBC 1-5/hpf Urine WBC 5-10/hpf H Ur Squamous Epith Cells 5-10 /hpf H Other Crystals Urine Bacteria Few (2-10) H Ur Culture Indicated? Cult not indicated COVID-19 PCR Negative Assessment & Plan Assessment and plan (1) Acute appendicitis: Qualifiers: Acute appendicitis type: with localized peritonitis Appendicitis abscess presence: without abscess Appendicitis gangrene presence: without gangrene Appendicitis perforation presence: with perforation Qualified Code(s): K35.32 - Acute appendicitis with perforation and localized peritonitis, without abscess Status: Acute Assessment & Plan narrative: This is a 64-year-old woman with acute appendicitis. Under typical circumstances I would recommend that we proceed with a laparoscopic appendectomy. However she cystinuria and had her right kidney auto transplanted into her right lower quadrant via a midline laparotomy and she has significant stranding not only of her appendix but her cecum as well. I think the potential morbidity associated with operative management of her acute appendicitis is significant and I recommend that we proceed with medical management with IV antibiotic therapy. Her CT demonstrates a fecalith at the base of the appendix and she will ultimately need to have the appendix removed to prevent recurrent appendicitis. This would best be accomplished as an interval appendectomy if we can manage her through this hospitalization with non operative management. Over the course of the past 12 hours her heart rate has decreased from 130s to low 100s her focal peritonitis in the right lower quadrant has improved, she is tender but no trip peritonitis. Will continue to monitor and treat with Meropenem however should her clinical condition worsen then she will require the operating room.
--- NOTE | 2020-01-06 23:58 | PC.NURSE ---
Addendum entered by Latanya Marcelo R.N. 01/07/20 05:49: NOTE: THE SENTENCE BELOW REGARDING BEING WEAK W/TRANSFER IS IN REGARD TO ANOTHER PT. DOES NOT APPLY FOR THIS PT. Addendum entered by Latanya Marcelo R.N. 01/07/20 05:44: Pt rested @ intervals. Very weak when transferring to [facility]. IVF continue as per orders. Med w/Dilaudid at 0330 w/good relief. Call light w/in reach, bed alarm on for pt safety. Original Note: Pt resting at this time. Denies discomfort. Lungs clear/shallow, SpO2 94% RA IV NS @ 200cc/hr infusing into LAC via pump w/o incidence. Call light w/in reach, bed alarm on for pt safety.
[2020-01-07] VITALS (12 sets, daily range): BP systolic 128–167; BP diastolic 37–90; PULSE 94–111; RESP 17–20; TEMP 36.6–37.2; O2SAT 92–96; BMI 29.1
[2020-01-07] MEDS: SODIUM CHLORIDE 0.9% 1,000 ML 125 ML IV ×4 (02:18→23:39)
[2020-01-07] MEDS: HYDROMORPHONE 1 MG INJ IV ×4 (03:32→19:14)
[2020-01-07 06:14] LABS: Add Manual Diff / Slide Review NO; Basophils Absolute Auto 0 /uL (0-100); Basophils Percent Auto 0.2 % (0-2); Eosinophils Absolute Auto 0 /uL (0-450); Eosinophils Percent Auto 0.3 % (2-4); Hematocrit 39.7 % (36-46); Hemoglobin 13.3 g/dL (12.0-16.0); Lymphocytes Absolute Auto 800 /uL (1100-4500); Mean Corpuscular HGB Conc 33.4 % (30-36); Mean Corpuscular Hemoglobin 31.9 PG (26-34); Mean Corpuscular Volume 95.6 fL (80-100); Monocytes Absolute Auto 1100 /uL (0-900); Monocytes Percent Auto 7.8 % (3-14); Neutrophils Absolute Auto 11800 /uL (1500-7000); Neutrophils Percent Auto 85.7 % (50-75); Platelet Count 150 X10^3/uL (150-400); Red Blood Cell Count 4.16 X10^6/uL (4.0-5.2); Red Cell Distribution Width 13.2 % (11.6-14.8); White Blood Cell Count 13.7 X10^3/uL (4.5-11.0)
[2020-01-07 06:17] LABS: BUN Creatinine Ratio 18.3 (6-22); Blood Urea Nitrogen 24 mg/dL (7-17); Calcium 7.8 mg/dL (8.4-10.2); Carbon Dioxide 26 mmol/L (22-32); Chloride 106 mmol/L (98-107); Glucose 93 mg/dL (80-110); HEMOLYSIS < 15 (0-50); Potassium 4.7 mmol/L (3.4-5.1); Sodium 140 mmol/L (137-145)
[2020-01-07] MEDS: MEROPENEM 1 GM/50 ML PIGGYBACK IV ×2 (06:32→19:13)
[2020-01-07] MEDS: atenoloL 25 MG TABLET PO (09:03)
--- NOTE | 2020-01-07 09:41 | P.PN_ITS ---
Subjective Subjective Date Patient Seen: 01/07/20 Time Patient Seen: 09:41 Interval history: No acute events overnight. Patient says she is feeling better. She still has some focal right lower quadrant pain, and bloating. She has passed gas but no stool. Exam Vital Signs (past 8 hours): - 01/07/20 03:00 01/07/20 05:32 01/07/20 07:30 Temperature 98.4 F 98.8 F Pulse Rate 101 H 111 H Respiratory Rate 20 18 Blood Pressure 167/85 H 158/82 H Pulse Oximetry 95 94 95 Oxygen Delivery Method Room Air Oxygen Flow Rate 0 Narrative Exam Narrative: GENERAL: Alert, in mild distress, who to abdominal pain and bloating. Appears stated age. Answers questions promptly and appropriately. Vital signs noted. HENT: Normocephalic, atraumatic. Hearing intact. EYES: Conjunctiva pink, sclera white, no periorbital swelling. CARDIOVASCULAR: Tachycardic at 111. No pedal edema. RESPIRATORY: Mild tachypnea, respiratory rate 22, oxygen saturation 95, no increased work of breathing, no accessory muscle use GASTROINTESTINAL: Abdomen rounded, focally tender in the right lower quadrant, well-healed vertical midline incisional scar GENITALURINARY: No flank tenderness. MUSCULOSKELETAL: Equal tone and mass bilaterally. SKIN: Warm, dry, soft, appropriate color for ethnicity. No other lesions, rashes, or wounds. NEURO: Alert and Oriented X 3. No gross sensory deficits, or cognitive issues. PSYCH: Appropriate affect and mood. Objective Labs Result Diagrams: 01/07/20 05:45 01/07/20 05:45 Labs: Laboratory Results - last 24 hr 01/06/20 01/07/20 01/07/20 08:50 05:45 05:45 WBC 13.7 H RBC 4.16 Hgb 13.3 Hct 39.7 MCV 95.6 MCH 31.9 MCHC 33.4 RDW 13.2 Plt Count 150 Neut % (Auto) 85.7 H Lymph % (Auto) 6.0 L [place] % (Auto) 7.8 Eos % (Auto) 0.3 L Baso % (Auto) 0.2 Neut # (Auto) 61299 H Lymph # (Auto) 800 L [place] # (Auto) 1100 H Eos # (Auto) 0 Baso # (Auto) 0 Sodium 140 Potassium 4.7 Chloride 106 Carbon Dioxide 26 BUN 24 H Creatinine 1.31 H Estimated GFR 41.0 L BUN/Creatinine Ratio 18.3 Glucose 93 Calcium 7.8 L Urine Color Yellow Urine Appearance Sl cloudy Urine pH 6.5 Ur Specific [place] <=1.005 Urine Protein 1+ H Urine Glucose (UA) Trace H Urine Ketones Negative Urine Occult Blood Trace-intact Urine Nitrate Negative Urine Bilirubin Negative Urine Urobilinogen 0.2 Ur Leukocyte Esterase Negative Urine RBC 1-5/hpf Urine WBC 5-10/hpf H Ur Squamous Epith Cells 5-10 /hpf H Other Crystals Urine Bacteria Few (2-10) H Ur Culture Indicated? Cult not indicated Assessment & Plan Assessment and plan (1) Acute appendicitis: Qualifiers: Acute appendicitis type: with localized peritonitis Appendicitis abscess presence: without abscess Appendicitis gangrene presence: without gangrene Appendicitis perforation presence: with perforation Qualified Code(s): K35.32 - Acute appendicitis with perforation and localized peritonitis, without abscess Status: Acute (2) Eczema: Problem details: always Status: Chronic (3) Hypertension: Status: Chronic (4) History of kidney surgery: Status: Acute (5) History of laparotomy: Status: Acute (6) Obesity: Status: Acute Assessment & Plan narrative: This 64-year-old woman who is on hospital day 2 admitted for acute appendicitis with phlegmon and possible focal perforation. She was not immediately taken to the operating room because of the phlegmon in her right lower quadrant, overlying her on a transplanted kidney. She does have a fecalith, so she has 100% chance of recurrence of her appendicitis of we do get her through this on antibiotics alone at this time. However, given the severity of her inflammatory state in the right lower quadrant, it would be safer, and within the standard of care at this point to treat her with antibiotics and plan on an interval appendectomy once the inflammation has gone down in 2-3 months. This patient has had several reactions to antibiotics in the past, and she is not sure what her reaction was to penicillin, or whether it was a different antibiotic that caused her to react. I discussed with her the possibility that she may go home on oral antibiotics once we have resolved her white count and her tenderness, but we would need to establish is safe antibiotic that she can take at home. Her will contact safe way in find out what antibiotic she took before when she was admitted at [facility], that she tolerated well. He thinks this is something in the penicillin family. Her white count is improving, and her tenderness is improving for her. Today's of her stay I have seen her. I had a good discussion with the patient and her about the plan of care in the potential for still having to do surgery on her during this admission. They verbalized understanding of the plan and are in agreement with that at this point. Plan: Clear liquid diet as tolerated Ambulate frequently Continue IV fluid Continue IV antibiotics Continue as needed pain meds Continue as needed antiemetics Continue home meds as appropriate Research antibiotic history and determine a p.o. antibiotic the patient can tolerate at home Add stool softener DVT prophylaxis COVID-19 COVID-19 status: Negative Result date/Date tested (Pos, Neg/Pending): 01/06/20 Time Spent With Patient Time with patient: Greater than 35 minutes Quality VTE Deep Vein Thrombosis/Pulmonary Embolism Present on Admission: No
[2020-01-07] MEDS: DOCUSATE 100 MG CAPSULE PO ×2 (10:32→19:10)
[2020-01-07] MEDS: HEPARIN 5,000 UNIT/ML VIAL 5000 UNIT SUBCUT ×2 (10:32→19:09)
[2020-01-07] MEDS: OXYCODONE IR 5 MG TABLET PO ×3 (12:01→19:09)
[2020-01-07] MEDS: ACETAMINOPHEN 325 MG TABLET 650 MG PO ×2 (12:01→18:11)
[2020-01-07] MEDS: polyethylene glycoL 3350 17 GM POWD.PACK PO (19:10)
[2020-01-08] VITALS (13 sets, daily range): BP systolic 158–197; BP diastolic 74–105; PULSE 93–115; RESP 18–22; TEMP 36.6–37.6; O2SAT 94–98
[2020-01-08] MEDS: OXYCODONE IR 5 MG TABLET PO ×5 (00:02→23:57)
[2020-01-08] MEDS: ACETAMINOPHEN 325 MG TABLET 650 MG PO ×5 (00:02→23:54)
[2020-01-08] MEDS: HYDROMORPHONE 1 MG INJ IV ×3 (00:03→23:57)
[2020-01-08] MEDS: atenoloL 25 MG TABLET PO ×3 (01:05→19:45)
--- NOTE | 2020-01-08 04:12 | PC.NURSE ---
Pt's BP elevated to 191/93. Pain rated at 6/10. Given 1mg Dilaudid and 5mg Oxycodone w/no drop in pressure. One time order of Atenlol 25mg lowered BP to 163/84. Pt currently resting comfortably
[2020-01-08] MEDS: MEROPENEM 1 GM/50 ML PIGGYBACK IV ×3 (06:20→22:26)
[2020-01-08] MEDS: SODIUM CHLORIDE 0.9% 1,000 ML 125 ML IV (06:23)
[2020-01-08 07:02] LABS: Add Manual Diff / Slide Review NO; Basophils Absolute Auto 0 /uL (0-100); Basophils Percent Auto 0.4 % (0-2); Eosinophils Absolute Auto 200 /uL (0-450); Eosinophils Percent Auto 1.4 % (2-4); Hematocrit 38.1 % (36-46); Hemoglobin 12.7 g/dL (12.0-16.0); Lymphocytes Absolute Auto 700 /uL (1100-4500); Mean Corpuscular HGB Conc 33.2 % (30-36); Mean Corpuscular Hemoglobin 31.7 PG (26-34); Mean Corpuscular Volume 95.4 fL (80-100); Monocytes Absolute Auto 1100 /uL (0-900); Monocytes Percent Auto 7.7 % (3-14); Neutrophils Absolute Auto 11600 /uL (1500-7000); Neutrophils Percent Auto 85.5 % (50-75); Platelet Count 199 X10^3/uL (150-400); Red Cell Distribution Width 13.2 % (11.6-14.8); White Blood Cell Count 13.6 X10^3/uL (4.5-11.0)
[2020-01-08 07:33] LABS: Magnesium 2.2 mg/dL (1.6-2.3)
[2020-01-08 07:34] LABS: BUN Creatinine Ratio 17.4 (6-22); Blood Urea Nitrogen 16 mg/dL (7-17); Calcium 8.1 mg/dL (8.4-10.2); Carbon Dioxide 24 mmol/L (22-32); Chloride 107 mmol/L (98-107); Estimated Glomerular Filt Rate > 60.0 mL/min (>60); Glucose 105 mg/dL (80-110); HEMOLYSIS < 15 (0-50); Potassium 4.2 mmol/L (3.4-5.1); Sodium 139 mmol/L (137-145)
[2020-01-08] MEDS: polyethylene glycoL 3350 17 GM POWD.PACK PO (08:26)
[2020-01-08] MEDS: HEPARIN 5,000 UNIT/ML VIAL 5000 UNIT SUBCUT ×2 (08:26→20:01)
[2020-01-08] MEDS: DOCUSATE 100 MG CAPSULE PO (08:26)
--- NOTE | 2020-01-08 10:05 | P.PN_ITS ---
Subjective Subjective Date Patient Seen: 01/08/20 Time Patient Seen: 10:05 Interval history: The patient had some high blood pressure overnight, and we re- dosed her atenolol. She is feeling much better today than yesterday. She has had some bowel movements. She has an appetite now, and her pain is quite a bit better. Exam Vital Signs (past 8 hours): - 01/08/20 03:00 01/08/20 04:46 01/08/20 07:00 Temperature 97.8 F Pulse Rate 105 H Respiratory Rate 20 Blood Pressure 162/74 H Pulse Oximetry 96 96 94 01/08/20 07:15 Temperature 98.0 F Pulse Rate 95 H Respiratory Rate 19 Blood Pressure 158/85 H Pulse Oximetry 94 Oxygen Delivery Method Room Air Oxygen Flow Rate 0 Narrative Exam Narrative: GENERAL: Alert, comfortable appearing, Appears stated age. Answers questions promptly and appropriately. Vital signs noted. HENT: Normocephalic, atraumatic. Hearing intact. EYES: Conjunctiva pink, sclera white, no periorbital swelling. CARDIOVASCULAR: HR 95. No pedal edema. RESPIRATORY: Breathing comfortably on room air, non tachypneic GASTROINTESTINAL: Abdomen rounded, minimal focal tenderness in the right lower quadrant, well-healed vertical midline incisional scar; negative Rovsing sign GENITALURINARY: No flank tenderness. MUSCULOSKELETAL: Equal tone and mass bilaterally. SKIN: Warm, dry, soft, appropriate color for ethnicity. No other lesions, rashes, or wounds. NEURO: Alert and Oriented X 3. No gross sensory deficits, or cognitive issues. PSYCH: Appropriate affect and mood. Objective Labs Result Diagrams: 01/08/20 06:45 01/08/20 06:45 Labs: Laboratory Results - last 24 hr 01/07/20 01/08/20 01/08/20 05:45 06:45 06:45 WBC RBC Hgb Hct MCV MCH MCHC RDW Plt Count Neut % (Auto) Lymph % (Auto) [place] % (Auto) Eos % (Auto) Baso % (Auto) Neut # (Auto) Lymph # (Auto) [place] # (Auto) Eos # (Auto) Baso # (Auto) Sodium Potassium Chloride Carbon Dioxide BUN Creatinine Estimated GFR BUN/Creatinine Ratio Glucose Calcium Magnesium 2.2 Procalcitonin 2.80 H 1.70 H 01/08/20 01/08/20 06:45 06:45 WBC 13.6 H RBC 4.00 Hgb 12.7 Hct 38.1 MCV 95.4 MCH 31.7 MCHC 33.2 RDW 13.2 Plt Count 199 Neut % (Auto) 85.5 H Lymph % (Auto) 5.0 L [place] % (Auto) 7.7 Eos % (Auto) 1.4 L Baso % (Auto) 0.4 Neut # (Auto) 56420 H Lymph # (Auto) 700 L [place] # (Auto) 1100 H Eos # (Auto) 200 Baso # (Auto) 0 Sodium 139 Potassium 4.2 Chloride 107 Carbon Dioxide 24 BUN 16 Creatinine 0.92 Estimated GFR > 60.0 BUN/Creatinine Ratio 17.4 Glucose 105 Calcium 8.1 L Magnesium Procalcitonin Assessment & Plan Assessment and plan (1) Acute appendicitis: Qualifiers: Acute appendicitis type: with localized peritonitis Appendicitis abscess presence: without abscess Appendicitis gangrene presence: without gangrene Appendicitis perforation presence: with perforation Qualified Code(s): K35.32 - Acute appendicitis with perforation and localized peritonitis, without abscess Status: Acute (2) Eczema: Problem details: always Status: Chronic (3) Hypertension: Status: Chronic (4) History of kidney surgery: Status: Acute (5) History of laparotomy: Status: Acute (6) Obesity: Status: Acute Assessment & Plan narrative: This 64-year-old woman who is on hospital day 3 admitted for acute appendicitis with phlegmon and possible focal perforation. 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 She does have a fecalith, so she has 100% chance of recurrence of her appendicitis of we do get her through this on antibiotics alone at this time. However, given the severity of her inflammatory state in the right lower quadrant, it would be safer, and well within the standard of care at this point to treat her with antibiotics and plan on an interval appendectomy once the inflammation has gone down in 2-3 months. This patient has had several reactions to antibiotics in the past, and yesterday when best to get it her antibiotic history. It seems that the anaphylactic reaction she had in the past was only from Bactrim. We have not identified a antibiotic that she has received in the penicillin or cephalosporin family that caused her problem. We will continue her on the meropenem for today, and if her labs and clinical picture continue to improve we will switch her to an oral antibiotic tomorrow with plans to discharge her home on the antibiotic as long as she continues to improve by Friday. Her procalcitonin has come down from 2.7 to 1.7. Her white blood cell count is basically the same as yesterday with a slightly improved left shift. Her creatinine has returned to normal. Her other labs are encouraging. At this point we will advance her diet a bit, have her ambulate more, and continue the IV antibiotics. We will recheck labs tomorrow. She received an extra dose of atenolol at midnight for blood pressures in the 200s. She has also received her 9:00 a.m. dose today. We will see how her blood pressure is throughout the day, and consider keeping her atenolol on b.i.d. while she is in the hospital depending on how her blood pressure is today. Plan: Advanced to full liquid diet Ambulate frequently Continue IV fluid at a lower rate Continue IV antibiotics with meropenem for now Continue as needed pain meds Continue as needed antiemetics Continue home meds as appropriate DVT prophylaxis COVID-19 COVID-19 status: Negative Result date/Date tested (Pos, Neg/Pending): 01/06/20 Time Spent With Patient Time with patient: Greater than 35 minutes Quality VTE Deep Vein Thrombosis/Pulmonary Embolism Present on Admission: No
--- NOTE | 2020-01-08 14:39 | CM.IDA ---
Initial DCP Assessment Note Patient is a 64 yo female, resident of [place]. 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 Dr Pérez suggests potential morbidity if he proceeds with operative management. Patient admitted for conservative management of her appendicitis w/ IV abx w/recommendation for close outpt f/u w/surgery. Met w.patient this morning, introduced role. Patient states she has low activity tolerance right now but this is getting better. 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 Patient does not think she will have any needs from DCP team, but appreciative of the visit. Will follow closely in case any DC needs or concerns arise. SMOOTH Jackson Discharge Planning/Care Management CM Discharge Assessment Start: 01/08/20 14:38 Freq: Status: Active Protocol: Document 01/08/20 14:38 CAL (Rec: 01/08/20 14:39 CAL [id number]) Discharge Planning Assessment Assigned Farm Reporter SMOOTH Rueda DPOA/Assigned Designee Name Gurinder Glaser, spouse Contact Information [phone], Advance Directives? Yes Advance Directives on File No History Provided By Patient Prior Living Arrangements House Household Members spouse Type of transporation used prior to Drives own vehicle admit Independent with ADL's Yes Is patient alert and oriented? Yes Discharge Plan Home Transportation Arrangement Spouse Referrals Initiated None needed
[2020-01-08] MEDS: HYDROMORPHONE 0.5 MG INJ IV (16:03)
[2020-01-08] MEDS: atenoloL 25 MG TABLET 12.5 MG PO (22:32)
[2020-01-09] VITALS (12 sets, daily range): BP systolic 164–202; BP diastolic 93–107; PULSE 72–97; RESP 16–20; TEMP 36.6–37.1; O2SAT 95–99
--- NOTE | 2020-01-09 05:15 | PC.NURSE ---
Pt up frequently to bathroom, having loose stools and urinating frequently. States she feels much better with each trip to the bathroom, feels that she is, getting cleaned out. Pt tends to be somewhat forgetful, getting up impulsively without using her call light. Bed alarm is on due to her being somewhat unsteady on her feet.
[2020-01-09] MEDS: ACETAMINOPHEN 325 MG TABLET 650 MG PO ×3 (05:22→18:12)
[2020-01-09 05:57] LABS: Add Manual Diff / Slide Review NO; Basophils Absolute Auto 0 /uL (0-100); Basophils Percent Auto 0.4 % (0-2); Eosinophils Absolute Auto 300 /uL (0-450); Eosinophils Percent Auto 2.7 % (2-4); Hematocrit 38.8 % (36-46); Hemoglobin 13.1 g/dL (12.0-16.0); Lymphocytes Absolute Auto 800 /uL (1100-4500); Lymphocytes Percent Auto 6.4 % (25-40); Mean Corpuscular HGB Conc 33.6 % (30-36); Mean Corpuscular Hemoglobin 31.9 PG (26-34); Mean Corpuscular Volume 94.8 fL (80-100); Monocytes Absolute Auto 1200 /uL (0-900); Neutrophils Absolute Auto 9700 /uL (1500-7000); Neutrophils Percent Auto 80.5 % (50-75); Platelet Count 215 X10^3/uL (150-400); Red Blood Cell Count 4.09 X10^6/uL (4.0-5.2); White Blood Cell Count 12.1 X10^3/uL (4.5-11.0)
[2020-01-09] MEDS: MEROPENEM 1 GM/50 ML PIGGYBACK IV (06:03)
[2020-01-09 06:12] LABS: Blood Urea Nitrogen 13 mg/dL (7-17); Calcium 8.7 mg/dL (8.4-10.2); Carbon Dioxide 31 mmol/L (22-32); Chloride 103 mmol/L (98-107); Estimated Glomerular Filt Rate > 60.0 mL/min (>60); Glucose 99 mg/dL (80-110); HEMOLYSIS < 15 (0-50); Magnesium 2.2 mg/dL (1.6-2.3); Potassium 4.1 mmol/L (3.4-5.1); Sodium 140 mmol/L (137-145)
[2020-01-09 06:28] LABS: Procalcitonin 0.99 ng/mL (<0.5)
[2020-01-09] MEDS: atenoloL 25 MG TABLET PO ×2 (08:15→22:03)
[2020-01-09] MEDS: HEPARIN 5,000 UNIT/ML VIAL 5000 UNIT SUBCUT ×2 (08:15→22:03)
[2020-01-09 08:51] LABS: NT-proBNP (BNP-Adult 18+) 1880 pg/mL (<125)
--- NOTE | 2020-01-09 09:18 | DI.ECHO.S_ITS ---
[facility]---------[facility] +---------+ : : [address] : : : : [phone] : : : : Phone: [phone]+ Echocardiogram Report + + :Name: MARCELINO NIÑO Study Date: 01/09/2020 Height: 65 in : :[facility] Weight: 175 lb : : Gender: Female BSA: 1.9 m2 : :: 1955 Age: 64 yrs BP: 202/106 mmHg: :Reason For Study: SHORTNESS OF BREATH : :Ordering Physician: HOSPITALIST, : :WILLY Performed By: Melinda Fuentes : :Referring: KAI TRAN : + + Interpretation Summary Normal sinus rhythm. Normal LV size; mild concentric LVH; normal wall motion and LV systolic function. EF is 65-70%. Moderate LA enlargement; otherwise normal chamber sizes. No significant valvular abnormalities. No prior study available for comparison. Procedure: A two-dimensional transthoracic echocardiogram with color flow and Doppler was performed. The study quality was technically adequate. There is no prior echocardiogram noted for this patient. The patient was in sinus tachycardia with heart rates between 94-100 bpm during the exam. Left Ventricle: The left ventricle is normal in size. Left ventricular wall thickness is mildly increased. Proximal septal thickening is noted. The ejection fraction is estimated to be 65-70%. Diastolic function could not be accurately assessed due to tachycardia. Right Ventricle: The right ventricle is normal in size and function. Atria: The left atrium is moderately dilated. Right atrial size is normal. There is no Doppler evidence for an interatrial shunt. Mitral Valve: The mitral valve is normal in structure and function. There is trace mitral regurgitation. Aortic Valve: The aortic valve is mildly calcified. The aortic valve is trileaflet. The aortic valve opens well. There is no aortic valve stenosis. No aortic regurgitation is present. Tricuspid Valve: The tricuspid valve is normal in structure and function. Pulmonary artery pressures cannot be estimated because of the lack of a measurable TR jet velocity but the IVC suggests a CVP of around 8 mmHg. There is trace tricuspid regurgitation. Pulmonic Valve: The pulmonic valve leaflets are thin and pliable; valve motion is normal. There is no pulmonic valvular regurgitation. Great Vessels: The aortic root is normal size. The ascending aorta is mildly enlarged. The IVC is of normal diameter and collapses less than 50% with a sniff. This suggests a right atrial pressure of 8 mm Hg. Pericardium/ Pleura There is no pericardial effusion. There is no pleural effusion. MMode/2D Measurements & Calculations LVIDd: 4.1 cm LVOT diam: 2.1 cm LVIDs: 2.9 cm Ao root diam: 3.1 cm FS: 29.4 % asc Aorta Diam: 3.7 cm EPSS: 0.53 cm Ao Arch Diam (Prox Trans): 3.1 cm IVSd: 1.3 cm LVPWd: 1.1 cm LV ledesma. diameter/BSA (cm/m^2): 2.2 LV sys. diameter/BSA (cm/m^2): 1.6 LA A2 area: 24.2 cm2 RA long axis: 5.2 cm LA A4 area: 22.5 cm2 RA area: 17.0 cm2 LA length (vol): 5.8 cm RA vol: 47.3 ml LA vol: 80.1 ml RA : 25.3 ml/m2 LA vol index: 42.9 ml/m2 IVC diam: 1.8 cm RVD1 (basal): 3.5 cm TAPSE: 2.9 cm Doppler Measurements & Calculations Ao V2 max: 155.7 cm/sec LVOT Max Alessio: 109.0 cm/sec Ao V2 mean: 107.8 cm/sec LV V1 max P.8 mmHg Ao max P.7 mmHg LV V1 VTI: 24.9 cm Ao mean P.3 mmHg JOYCELYN(I,D): 2.7 cm2 Ao V2 VTI: 31.6 cm JOYCELYN(V,D): 2.4 cm2 sev ratio: 0.79 JOYCELYN indexed to BSA (cm^2/m^2): 1.4 MV E max alessio: 124.9 cm/sec PA V2 max: 69.0 cm/sec MV A max alessio: 102.4 cm/sec PA V2 mean: 43.1 cm/sec MV E/A: 1.2 PA mean P.88 mmHg Med Peak E' Alessio: 8.7 cm/sec PA pr(Accel): 37.9 mmHg E/E' med: 14.4 Lat Peak E' Alessio: 9.9 cm/sec E/E' lat: 12.6 E/e' average: 13.5 MV dec time: 0.19 sec SV(LVOT): 85.0 ml Electronically signed by: Deepali Molina M.D. on Reading Physician:01/09/2020 06:18 PM
--- NOTE | 2020-01-09 09:19 | DI.CT.S_ITS ---
PROCEDURE: CT ANGIO CHEST PE PROTOCOL INDICATIONS: clinical suspicion of PE TECHNIQUE: After the administration of intravenous contrast, 2 mm thick sections acquired from the pulmonary apices to the posterior costophrenic angles. 3-dimensional maximum intensity projection (MIP) coronal and sagittal reformats were then acquired through the thorax. For radiation dose reduction, the following was used: automated exposure control, adjustment of mA and/or kV according to patient size. COMPARISON: None. FINDINGS: Image quality: Excellent. Pulmonary arteries: Pulmonary arteries are normal in size, and demonstrate no intraluminal filling defects to suggest central pulmonary embolism. Lungs and pleura: Lung volumes are low. Mild subpleural atelectasis can be seen, which is most prominent within the lingula. No pleural effusions or pneumothorax. Central and peripheral airways are patent. Mediastinum: Heart size is normal, without pericardial effusion. No mediastinal or hilar adenopathy. Thoracic aorta is normal in caliber and enhancement. Esophagus is normal in caliber, without hiatal hernia. Bones and chest wall: No suspicious bony lesions. Ribs and thoracic spine appear intact throughout. Thyroid gland demonstrates no significant abnormality. No axillary or supraclavicular adenopathy. Abdomen: Diffuse fatty liver infiltration is noted. Status post right nephrectomy. No abnormal soft tissue can be seen within the right nephrectomy bed. The left kidney is unremarkable. The visualized portions of the upper abdominal structures are otherwise unremarkable for imaging technique. IMPRESSION: Negative for pulmonary embolism. Low lung volumes, with areas of subpleural atelectasis, which is most prominent within the lingula. Incidental note is made of: Fatty liver infiltration Right nephrectomy Dictated by: Louis Gonzales M.D. on 01/09/2020 at 10:39 Approved by: Louis Gonzales M.D. on 01/09/2020 at 10:42
--- NOTE | 2020-01-09 09:27 | PC.NURSE ---
Pt alert and oriented, states she feels better. at bedside. RN spoke with Dr. Navas discussed plan of care and consult with Hospitalist. Pt reports she is wheezy but it's better than yesterday. See new orders. Dr. Guardado in to so see Pt.
--- NOTE | 2020-01-09 09:47 | P.PN_ITS ---
Subjective Subjective Date Patient Seen: 01/09/20 Time Patient Seen: 08:00 Interval history: Overnight her hypertension was not well controlled, and we added a PRN additional dose of atenolol. The patient continues to have hypertension, and tachypnea, although her oxygen saturations are good and she denies feeling short of breath. Exam Vital Signs (past 8 hours): - 01/09/20 03:00 01/09/20 04:03 01/09/20 09:25 Temperature 98.1 F Pulse Rate 88 72 Respiratory Rate 20 Blood Pressure 164/101 H 184/100 H Pulse Oximetry 95 98 Oxygen Delivery Method Room Air Oxygen Flow Rate 0 Narrative Exam Narrative: GENERAL: Alert, comfortable appearing, Appears stated age. Answ ers questions promptly and appropriately. Vital signs noted. HENT: Normocephalic, atraumatic. Hearing intact. EYES: Conjunctiva pink, sclera white, no periorbital swelling. CARDIOVASCULAR: HR 95. Trace pedal edema. RESPIRATORY: Breathing comfortably on room air, mildly tachypneic GASTROINTESTINAL: Abdomen rounded, minimal focal tenderness in the right lower quadrant, well-healed vertical midline incisional scar; negative Rovsing sign GENITALURINARY: No flank tenderness. MUSCULOSKELETAL: Equal tone and mass bilaterally. SKIN: Warm, dry, soft, appropriate color for ethnicity. No other lesions, rashes, or wounds. NEURO: Alert and Oriented X 3. No gross sensory deficits, or cognitive issues. PSYCH: Appropriate affect and mood. Objective Imaging CT scan - chest: Radiologist's impression: [place] [id number] CT Scan Report Signed Patient: Cici Glaser R#: [id number] : 7Acct:[id number] Age/Sex: 64 / FDate of Service: 01/09/20 Loc: SR651-9 Accession Number: [id number] Procedure: CT angio chest PE protocol Ordering Provider: Jessi Navas MD PROCEDURE: CT ANGIO CHEST PE PROTOCOL INDICATIONS: clinical suspicion of PE TECHNIQUE: After the administration of intravenous contrast, 2 mm thick sections acquired from the pulmonary apices to the posterior costophrenic angles. 3-dimensional maximum intensity projection (MIP) coronal and sagittal reformats were then acquired through the thorax. For radiation dose reduction, the following was used: automated exposure control, adjustment of mA and/or kV according to patient size. COMPARISON: None. FINDINGS: Image quality: Excellent. Pulmonary arteries: Pulmonary arteries are normal in size, and demonstrate no intraluminal filling defects to suggest central pulmonary embolism. Lungs and pleura: Lung volumes are low. Mild subpleural atelectasis can be seen, which is most prominent within the lingula. No pleural effusions or pneumothorax. Central and peripheral airways are patent. Mediastinum: Heart size is normal, without pericardial effusion. No mediastinal or hilar adenopathy. Thoracic aorta is normal in caliber and enhancement. Esophagus is normal in caliber, without hiatal hernia. Bones and chest wall: No suspicious bony lesions. Ribs and thoracic spine appear intact throughout. Thyroid gland demonstrates no significant abnormality. No axillary or supraclavicular adenopathy. Abdomen: Diffuse fatty liver infiltration is noted. Status post right nephrectomy. No abnormal soft tissue can be seen within the right nephrectomy bed. The left kidney is unremarkable. The visualized portions of the upper abdominal structures are otherwise unremarkable for imaging technique. IMPRESSION: Negative for pulmonary embolism. Low lung volumes, with areas of subpleural atelectasis, which is most prominent within the lingula. Incidental note is made of: Fatty liver infiltration Right nephrectomy Dictated by: Louis Gonzales M.D. on 01/09/2020 at 10:39 Approved by: Louis Gonzales M.D. on 01/09/2020 at 10:42 Labs Result Diagrams: 01/09/20 05:35 01/09/20 05:35 Labs: Laboratory Results - last 24 hr 01/09/20 01/09/20 01/09/20 05:35 05:35 05:35 WBC 12.1 H RBC 4.09 Hgb 13.1 Hct 38.8 MCV 94.8 MCH 31.9 MCHC 33.6 RDW 13.0 Plt Count 215 Neut % (Auto) 80.5 H Lymph % (Auto) 6.4 L [place] % (Auto) 10.0 Eos % (Auto) 2.7 Baso % (Auto) 0.4 Neut # (Auto) 9700 H Lymph # (Auto) 800 L [place] # (Auto) 1200 H Eos # (Auto) 300 Baso # (Auto) 0 Sodium Potassium Chloride Carbon Dioxide BUN Creatinine Estimated GFR BUN/Creatinine Ratio Glucose Calcium Magnesium 2.2 NT-Pro-B Natriuret Pep Procalcitonin 0.99 H 01/09/20 01/09/20 05:35 05:35 WBC RBC Hgb Hct MCV MCH MCHC RDW Plt Count Neut % (Auto) Lymph % (Auto) [place] % (Auto) Eos % (Auto) Baso % (Auto) Neut # (Auto) Lymph # (Auto) [place] # (Auto) Eos # (Auto) Baso # (Auto) Sodium 140 Potassium 4.1 Chloride 103 Carbon Dioxide 31 BUN 13 Creatinine 0.81 Estimated GFR > 60.0 BUN/Creatinine Ratio 16.0 Glucose 99 Calcium 8.7 Magnesium NT-Pro-B Natriuret Pep 1880 H Procalcitonin Assessment & Plan Assessment and plan (1) Acute appendicitis: Qualifiers: Acute appendicitis type: with localized peritonitis Appendicitis abscess presence: without abscess Appendicitis gangrene presence: without gangrene Appendicitis perforation presence: with perforation Qualified Code(s): K35.32 - Acute appendicitis with perforation and localized peritonitis, without abscess Status: Acute (2) Eczema: Problem details: always Status: Chronic (3) Hypertension: Status: Chronic (4) History of kidney surgery: Status: Acute (5) History of laparotomy: Status: Acute (6) Obesity: Status: Acute (7) Tachypnea: Status: Acute Assessment & Plan narrative: This 64-year-old woman who is on hospital day 4 admitted for acute appendicitis with phlegmon. 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 She does have a fecalith, so she has 100% chance of recurrence of her appendicitis of we do get her through this on antibiotics alone at this time. However, given the severity of her inflammatory state in the right lower quadrant, it would be safer, and well within the standard of care at this point to treat her with antibiotics and plan on an interval appendectomy once the inflammation has resolved and the adhesions have softened in 2-3 months. Her white blood cell count improved calcitonin continued to improve. Her tachypnea and persistent hypertension in the face of increasing doses of atenolol are concerning. So today I have consulted Dr. Cardoza from the hospitalist service to give an opinion on her hypertension and tachypnea. We have gotten the PE protocol CT of the chest, which does not show a PE. He has ordered a BNP and echocardiogram. As discussed previously with the patient, we will start p.o. antibiotics today and follow her for any allergic reaction. If she does well on the p.o. antibiotics, and her physical exam, white blood cell count and procalcitonin continue to improve we may discharge her home tomorrow on oral antibiotics for another 10 days. This of course is pending the hospitalist evaluation and approval of her medical stability for discharge. Plan: We appreciate the Hospitalist evaluation of hypertension, tachypnea, and lower extremity edema, and opinion on our choice of antibiotics Continuing full liquid diet Ambulate frequently DC IV fluids DC IV meropenem Start p.o. Flagyl and 3rd generation cephalosporin Continue as needed pain meds Continue as needed antiemetics Continue home meds as appropriate DVT prophylaxis COVID-19 COVID-19 status: Negative Result date/Date tested (Pos, Neg/Pending): 01/06/20 Time Spent With Patient Time with patient: Greater than 35 minutes Quality VTE Deep Vein Thrombosis/Pulmonary Embolism Present on Admission: No
[2020-01-09] MEDS: metroNIDAZOLE 500 MG TABLET PO ×4 (10:13→22:03)
[2020-01-09] MEDS: FUROSEMIDE 20 MG/2 ML VIAL IV ×3 (10:13→18:12)
--- NOTE | 2020-01-09 10:23 | P.CONS_ITS ---
History of Present Illness Consult details Date Patient Seen: 01/09/20 Time Patient Seen: 10:23 Chief complaint: RLQ pain Reason for consult: hypertension, shortness of breath Requesting provider: Jessi Navas Narrative: Cici Glaser is a 64-year-old female past medical history of hypertension and hyperlipidemia, autologous renal transplant who was admitted on the night of the for perforated appendicitis. Given her prior surgical history as well as the level of information patient was treated medically with antibiotics. Her abdominal pain has continued to improve and she feels improved. However since her arrival she has been more short of breath. She is net + 7 L since admission per current documentation. She also complains of significant orthopnea and dyspnea on exertion. She does not usually have an trouble breathing. She denies any chest pain, palpitations, dizziness, nausea, vomiting today. Also more recently her blood pressures have been uncontrolled, climbing as high as the 200 systolic. Her blood pressures are usually well controlled on just Atenolol per outpatient documentation. Surgery attempted to increase home medication dosing but without much success. Medicine was consulted for BP control as well as further evaluation of her dyspnea. CTA chest done showed some atelectasis but no PE or pulmonary edema. ProBNP was elevated at 1880. Patient was given 20 mg of IV lasix to assess response in BP and dyspnea. Meds Home Medications and Allergies Home Medications Medication Instructions Recorded Confirmed Type hydrocodone 10 mg-acetaminophen 1 tab PO QID PRN 07/22/18 01/06/20 History 325 mg tablet epinephrine 0.3 mg/0.3 mL 0.3 mg IM Q10M PRN #1 each 10/26/18 01/06/20 Rx injection, auto-injector atenolol 25 mg tablet 25 mg PO QDAY #90 tab 07/06/19 01/06/20 Rx Allergies Allergy/AdvReac Type Severity Reaction Status Date / Time sulfamethoxazole Allergy Severe Anaphylaxis Verified 05/19/19 08:12 [From Bactrim] trimethoprim [From Bactrim] Allergy Severe Anaphylaxis Verified 05/19/19 08:12 ciprofloxacin [CIPROFLOXACIN] Allergy Unknown Verified 05/19/19 08:12 Penicillins Allergy Unknown Verified 01/06/20 06:59 Review of Systems Review of Systems Narrative: All other systems reviewed with the patient and are negative unless otherwise stated. Exam Vital Signs (past 8 hours): - 01/09/20 03:00 01/09/20 04:03 01/09/20 09:25 Temperature 98.1 F Pulse Rate 88 72 Respiratory Rate 20 Blood Pressure 164/101 H 184/100 H Pulse Oximetry 95 98 01/09/20 10:22 Temperature Pulse Rate Respiratory Rate Blood Pressure Pulse Oximetry 97 Oxygen Delivery Method Room Air Oxygen Flow Rate 0 Narrative Exam Narrative: GENERAL APPEARANCE: Well developed, well nourished, in no acute distress. SKIN: Inspection of the skin reveals no rashes, ulcerations or petechiae. HEENT: Normocephalic atraumatic, extraocular muscles are intact, oropharynx is clear and mucous membranes are moist, neck is supple without adenopathy NECK: Supple and symmetric. There was no thyroid enlargement, and no tenderness, or masses were felt. CHEST: Normal AP diameter and normal contour without any kyphoscoliosis. LUNGS: There were bibasilar crackles, no wheezes present. CARDIOVASCULAR: There was a regular rate and rhythm without any murmurs, gallops, rubs. Peripheral pulses were 2+ and symmetric. ABDOMEN: Soft but mildly distended with moderate tenderness in her right lower quadrant. MUSCULOSKELETAL: There was no tenderness or effusions noted. Muscle strength and tone were normal. EXTREMITIES: No cyanosis, clubbing. There is 1+ pre-tibial edema bilaterally. NEUROLOGIC: Alert and oriented x 3. Normal affect. Gait was normal. Strength is +5/5 in the Upper Extremities and Lower Extremities Bilaterally. Sensation to touch was normal. Objective Labs Result Diagrams: 01/09/20 05:35 01/09/20 05:35 Labs: Laboratory Results - last 24 hr 01/09/20 01/09/20 01/09/20 05:35 05:35 05:35 WBC 12.1 H RBC 4.09 Hgb 13.1 Hct 38.8 MCV 94.8 MCH 31.9 MCHC 33.6 RDW 13.0 Plt Count 215 Neut % (Auto) 80.5 H Lymph % (Auto) 6.4 L [place] % (Auto) 10.0 Eos % (Auto) 2.7 Baso % (Auto) 0.4 Neut # (Auto) 9700 H Lymph # (Auto) 800 L [place] # (Auto) 1200 H Eos # (Auto) 300 Baso # (Auto) 0 Sodium Potassium Chloride Carbon Dioxide BUN Creatinine Estimated GFR BUN/Creatinine Ratio Glucose Calcium Magnesium 2.2 NT-Pro-B Natriuret Pep Procalcitonin 0.99 H 01/09/20 01/09/20 05:35 05:35 WBC RBC Hgb Hct MCV MCH MCHC RDW Plt Count Neut % (Auto) Lymph % (Auto) [place] % (Auto) Eos % (Auto) Baso % (Auto) Neut # (Auto) Lymph # (Auto) [place] # (Auto) Eos # (Auto) Baso # (Auto) Sodium 140 Potassium 4.1 Chloride 103 Carbon Dioxide 31 BUN 13 Creatinine 0.81 Estimated GFR > 60.0 BUN/Creatinine Ratio 16.0 Glucose 99 Calcium 8.7 Magnesium NT-Pro-B Natriuret Pep 1880 H Procalcitonin Assessment & Plan Assessment & Plan narrative: Cici Glaser is a 64-year-old female past medical history of hypertension and hyperlipidemia, autologous renal transplant who was admitted on the night of the for perforated appendicitis. Medicine was consulted today for worsening hypertension and dyspnea. 1. Dyspnea - -CTA chest done earlier today did not show any evidence of pulmonary embolism. ProBNP was elevated at 1880. She has bilateral lower extremity edema, and elevated proBNP, bibasilar crackles, orthopnea, and is 7 L net positive since admission in the setting medically managed perforated appendicitis. She likely has a component of volume overload and possibly diastolic heart failure. Will continue with lasix for additional blood pressure control. She also appears quite stoic but was quite tender on exam so elevated blood pressures may be at least partially from pain response. -have ordered an echocardiogram -have given 1 dose of IV lasix, will continue to assess response in both blood pressure and symptoms 2. HTN - - continue home atenolol, agree with increased dosing for now - continue pain control per surgery - continue lasix as noted above, and contionue to adjust. 3. perforated appendicitis - patient has adequately responded to antibiotics thus far. Transitioned to oral cephalosporin and flagyl today. Agree with current antibiotic management by surgery. Code: Full, as discussed with patient. DVT: HSQ Medicine will continue to follow this patient at this time to further assess response to additional medications. COVID-19 COVID-19 status: Negative
[2020-01-09] MEDS: OXYCODONE IR 5 MG TABLET PO ×2 (15:49→22:07)
[2020-01-09] MEDS: LACTOBACILLUS ACIDOPHILUS TABLET 1 EACH PO (15:51)
[2020-01-09] MEDS: DOCUSATE 100 MG CAPSULE PO (22:03)
[2020-01-09] MEDS: HYDRALAZINE 20 MG/ML VIAL 10 MG IV (22:49)
[2020-01-10] VITALS (8 sets, daily range): BP systolic 146–190; BP diastolic 84–95; PULSE 87–109; RESP 15–18; TEMP 36.4–37.1; O2SAT 95–99
[2020-01-10] MEDS: HYDROMORPHONE 0.5 MG INJ IV (00:13)
[2020-01-10] MEDS: ACETAMINOPHEN 325 MG TABLET 650 MG PO ×3 (00:15→11:59)
[2020-01-10] MEDS: OXYCODONE IR 5 MG TABLET PO ×3 (04:59→12:00)
[2020-01-10] MEDS: FUROSEMIDE 20 MG/2 ML VIAL IV (05:01)
[2020-01-10 06:38] LABS: Add Manual Diff / Slide Review NO; Basophils Absolute Auto 100 /uL (0-100); Basophils Percent Auto 0.4 % (0-2); Eosinophils Absolute Auto 300 /uL (0-450); Eosinophils Percent Auto 2.4 % (2-4); Hematocrit 41.5 % (36-46); Hemoglobin 14.2 g/dL (12.0-16.0); Lymphocytes Absolute Auto 1100 /uL (1100-4500); Mean Corpuscular HGB Conc 34.3 % (30-36); Mean Corpuscular Hemoglobin 32.1 PG (26-34); Mean Corpuscular Volume 93.5 fL (80-100); Monocytes Absolute Auto 1300 /uL (0-900); Monocytes Percent Auto 10.4 % (3-14); Neutrophils Absolute Auto 9900 /uL (1500-7000); Neutrophils Percent Auto 77.8 % (50-75); Platelet Count 289 X10^3/uL (150-400); Red Blood Cell Count 4.43 X10^6/uL (4.0-5.2); Red Cell Distribution Width 12.8 % (11.6-14.8); White Blood Cell Count 12.7 X10^3/uL (4.5-11.0)
[2020-01-10 06:55] LABS: BUN Creatinine Ratio 17.4 (6-22); Blood Urea Nitrogen 15 mg/dL (7-17); Calcium 9.1 mg/dL (8.4-10.2); Carbon Dioxide 34 mmol/L (22-32); Chloride 96 mmol/L (98-107); Estimated Glomerular Filt Rate > 60.0 mL/min (>60); Glucose 107 mg/dL (80-110); HEMOLYSIS < 15 (0-50); Magnesium 1.8 mg/dL (1.6-2.3); Potassium 3.1 mmol/L (3.4-5.1); Sodium 139 mmol/L (137-145)
[2020-01-10] MEDS: HEPARIN 5,000 UNIT/ML VIAL 5000 UNIT SUBCUT (07:58)
[2020-01-10] MEDS: DOCUSATE 100 MG CAPSULE PO (07:58)
[2020-01-10] MEDS: SODIUM CHLORIDE 0.9% FLUSH 10 ML IV (07:58)
[2020-01-10] MEDS: LACTOBACILLUS ACIDOPHILUS TABLET 1 EACH PO (07:58)
[2020-01-10] MEDS: metroNIDAZOLE 500 MG TABLET PO ×2 (07:59→11:59)
[2020-01-10] MEDS: atenoloL 25 MG TABLET PO (07:59)
[2020-01-10] MEDS: POTASSIUM CHLORIDE 20 MEQ/15 ML UDC 80 MEQ PO (08:24)
[2020-01-10] MEDS: NIFEdipine 30 MG TAB ER PO (08:24)
[2020-01-10] MEDS: POTASSIUM CHLORIDE 20 MEQ TAB 60 MEQ PO (09:35)
--- NOTE | 2020-01-10 11:22 | PM.DS.1 ---
History of Present Illness History of Present Illness Date Patient Seen: 01/10/20 Time Patient Seen: 11:22 Chief complaint: RLQ pain Narrative: This is a 64 y.o woman seen in the ER for evaluation of acute appendicitis. She had 2 days of generalized abdominal pain last night becoming focused in the right lower quadrant. Associated nausea vomiting and now right shoulder pain. At admission WBC 19, tachycardic to 130. CT A/P demonstrates acute perforated appendicitis with associated inflammation of the cecum, free fluid and a small amount of free air in the upper abdomen. She has a auto transplanted right kidney which is in her right pericolic gutter adjacent to the appendix. 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 Discharge Providers Provider Date of admission: 01/06/20 06:58 Discharge Date: 01/10/20 Primary care physician: Jasmin Camarillo DO Consults: 01/06/20 06:36 Consult to General Surgery Urgent Comment: Consulting Provider: Elie Pérez Reason for consultation: Admission Has provider been notified: Yes 01/09/20 09:15 Consult to Hospitalist Service Routine Comment: consult Hospitalist Consulting Provider: Cristobal Guardado Reason for consultation: evaluate respiratory and cardiac status. Has provider been notified: Yes Discharge provider: Elie Pérez MD Summary Hospital Course Discharge Diagnosis: Perforated appendicitis Hospital Course: Patient was admitted to the hospital 01/06 2020 for diagnosis of perforated appendicitis. CT scan demonstrated inflammation of the adjacent cecum free fluid and her auto transplanted right kidney was directly adjacent to the appendicitis. Given the significant risk of injury to her bowel and auto transplanted kidney she was managed non operatively with IV antibiotic therapy. She responded to antibiotic therapy well. She had resolution of her abdominal pain and improvement in her leukocytosis. At the time of discharge she is tolerant of a diet without nausea vomiting or abdominal pain. She had tachypnea and hypertension and medical consultation was obtained. CTA of the chest was negative and echocardiogram was also negative her tachypnea improved with diuresis and her hypertension improved with change of her medication to atenolol 25 mg b.i.d. and the addition of nifedipine 30 mg daily. She will be discharged home on a course of Suprax 400 mg daily and metronidazole 500 mg 4 times daily for a total of 10 days. She will follow up in the surgical clinic in 2 weeks time. She will ultimately require an interval appendectomy in approximately 2 months time when her appendix and adjacent bowel are without inflammation. Status at Discharge Cognitive/behavioral status at discharge: oriented Functional status at discharge: independent ambulation Overall status at discharge: patient is back to baseline Time Spent with Patient Time spent: Greater than 30 minutes Exam Vital Signs (past 8 hours): - 01/10/20 04:00 01/10/20 07:45 01/10/20 08:55 Temperature 97.5 F L 98 F Pulse Rate 91 H 103 H 109 H Respiratory Rate 18 15 18 Blood Pressure 167/89 H 146/84 H Pulse Oximetry 97 96 95 Oxygen Delivery Method Room Air Oxygen Flow Rate 0 Narrative Exam Narrative: General adult female alert oriented no acute distress Chest nonlabored respiration Abdomen soft minimally tender right lower quadrant no peritonitis Objective Labs Result Diagrams: 01/10/20 06:05 01/10/20 06:05 Labs: Laboratory Results - last 24 hr 01/10/20 01/10/20 01/10/20 06:05 06:05 06:05 WBC 12.7 H RBC 4.43 Hgb 14.2 Hct 41.5 MCV 93.5 MCH 32.1 MCHC 34.3 RDW 12.8 Plt Count 289 Neut % (Auto) 77.8 H Lymph % (Auto) 9.0 L [place] % (Auto) 10.4 Eos % (Auto) 2.4 Baso % (Auto) 0.4 Neut # (Auto) 9900 H Lymph # (Auto) 1100 [place] # (Auto) 1300 H Eos # (Auto) 300 Baso # (Auto) 100 Sodium Potassium Chloride Carbon Dioxide BUN Creatinine Estimated GFR BUN/Creatinine Ratio Glucose Calcium Magnesium 1.8 Procalcitonin 0.70 H 01/10/20 06:05 WBC RBC Hgb Hct MCV MCH MCHC RDW Plt Count Neut % (Auto) Lymph % (Auto) [place] % (Auto) Eos % (Auto) Baso % (Auto) Neut # (Auto) Lymph # (Auto) [place] # (Auto) Eos # (Auto) Baso # (Auto) Sodium 139 Potassium 3.1 L Chlor[place] 96 L Carbon Dioxide 34 H BUN 15 Creatinine 0.86 Estimated GFR > 60.0 BUN/Creatinine Ratio 17.4 Glucose 107 Calcium 9.1 Magnesium Procalcitonin Discharge Plan Discharge Plan Patient Disposition: Home Discharge orders & Medications Prescriptions: New atenolol 25 mg Tablet 25 mg PO BID Qty: 60 RF: 0 cefixime [Suprax] 400 mg Capsule 400 mg PO DAILY Qty: 10 RF: 0 nifedipine 30 mg Tablet Extended Release 24hr 30 mg PO DAILY Qty: 30 RF: 0 metronidazole 500 mg Tablet 500 mg PO QID Qty: 40 RF: 0 docusate sodium [DOK] 100 mg Capsule 100 mg PO BID Qty: 30 RF: 0 oxycodone 5 mg Tablet 5 mg PO Q3HR PRN (Reason: Pain, Moderate (4-6)) Qty: 30 RF: 0 Continued hydrocodone-acetaminophen [Lynco] 10-325 mg tablet 1 tab PO QID PRN (Reason: pain) RF: 0 epinephrine [EpiPen 2-Patricio] 0.3 mg/0.3 mL auto-injector 0.3 mg IM Q10M PRN (Reason: anaphylaxis) Qty: 1 RF: 0 Discontinued atenolol 25 mg tablet 25 mg PO QDAY Qty: 90 RF: 1 Follow up/Referrals: Elie Pérez MD [Physician] - 2 Weeks Jasmin Camarillo DO [Primary Care Provider] - 1 Week Diet/Activity/Treatments Diet: Regular Skin/Wound/Dressing Care Report to your healthcare provider any signs of infection, such as:: chills, fever and increased pain Discharge Data Primary Care Provider: Jasmin Camarillo Quality VTE Deep Vein Thrombosis/Pulmonary Embolism Present on Admission: No
--- NOTE | 2020-01-10 12:38 | PC.NURSE ---
DISCHARGE: PATIENT CONFIRMS UNDERSTANDING OF ALL DC HOME INSTRUCTIONS. REVIEWED HANDOUT ON APPENDICITIS, REVIEWED S/SX'S WARRANTING RETURN TO 911 INCLUDED IN HANDOUT. DISCUSSED HOME MEDS AND NEW SCRIPTS AND POSSIBLE SIDE EFFECTS OF ALL NEW MEDS. DISCUSSED WITH PATIENT THAT IF SHE HAS ANY RESPIRATORY DISTRESS, WHEEZING, SHORTNESS OF BREATH ETC, THAT SHE SHOULD PRESENT TO THE ER. SHE WILL GO TO [facility] TO OCCUPATIONAL HEALTH SPECIALIST HER ELECTRONICALLY SENT SCRIPTS. HER SPOUSE IS PRESENT FOR ALL DC HOME TEACHING AND CONFIRMS UNDERSTANDING WELL. PATIENT LEFT W/ ALL BELONGINGS AND PAPERWORK BY WC IN NO S/SX'S OF DISTRESS BY WC WITH ROLL OVER PRESS OPERATOR ESCORT.
== END 2020-01-10 12:20 | disposition home or self-care (01) | DRG 372 ==
LOC: ED 06:35 → AC 06:59
PROVIDERS: Internal Medicine; Surgery; Admitting Provider Surgery; Emergency Provider Emergency Medicine; Family Provider Internal Medicine Nephrology; PCP Family Medicine; Referring Provider Emergency Medicine; Visit Provider Surgery
DX: K35.32 Acute appendicitis with perforation, localized peritonitis, and gangrene, without abscess (principal); E72.01 Cystinuria; I50.30 Unspecified diastolic (congestive) heart failure; I10 Essential (primary) hypertension; E78.5 Hyperlipidemia, unspecified; Z11.59 Encounter for screening for other viral diseases
CPT/HCPCS: 36415; 36592; 71275; 74177; 80048; 80053; 81001; 83690; 83735; 83880; 84145; 85025; 87635; 93005; 93010; 93306; 94760; 96361; 96365; 96375; 96376; 99222; 99231; 99238; 99284; J0360; J1170; J1644; J1940; J2405; Q9967

== ENCOUNTER → 2020-03-13 09:49 | Outpatient (CLI) | payer OTHER, SELFPAY ==
[2020-01-07 21:03] VITALS: BMI 29.1
[2020-03-13 10:29] LABS: COVID19 -Nasal RAPID Negative (Negative)
== END ==
PROVIDERS: Family Provider Internal Medicine Nephrology; PCP Family Medicine; Visit Provider Surgery
DX: Z01.812 Encounter for preprocedural laboratory examination (principal); Z11.59 Encounter for screening for other viral diseases
CPT/HCPCS: 87635; C9803

== ENCOUNTER 2020-03-14 08:48 | Inpatient (IN) | payer OTHER, SELFPAY ==
[2020-01-07 21:03] VITALS: BMI 29.1
[2020-03-10 14:18] VITALS: BMI 37.8
[2020-03-14] VITALS (18 sets, daily range): BP systolic 140–195; BP diastolic 75–110; PULSE 81–94; RESP 12–20; TEMP 36.2–36.8; O2SAT 92–98; BMI 37.8
--- NOTE | 2020-03-14 | PATH_ITS ---
[facility] Accession Number: [id number] . 01 Material submitted: . appendix - APPENDIX . 01 Clinical history: . OPB . 02 Diagnosis: Appendix, Appendectomy: Appendix with transmural suppurative and foreign body-type granulomatous inflammation, consistent with ruptured appendix. Fibrous obliteration of the appendiceal tip. MRV 03/17/2020 1509 Local . 02 Electronically signed: . Kate Martinez MD, Pathologist NPI- [id number] . 01 Gross description: . The specimen is received in formalin, labeled appendix and consists of a 3.7 cm in length x 1.0 cm in diameter vermiform appendix with attached hargrove-yellow lobated mesoappendix, measuring 3.0 x 1.5 x 1.0 cm. The serosa is hargrove-pink and smooth. Sectioning reveals a hargrove mucosa and a lumen measuring 0.5 cm in diameter. The wall thickness measures 0.2 cm. The vermiform appendix is entirely submitted, to include the en face margin (black) and bisected tip in cassettes A1-A3. ([id number]) /[facility] 03/17/2020 0934 Local . 02 Pathologist provided ICD-10: K35.80 . 02 CPT . 349431 Performed at: 01 [facility] [address], [place], [place] [id number] MD Edmundo Almendarez MD Phone: [phone] Performed at: 02 [facility] [address] [place], [place] [id number] MD Azul Mcclellan MD Phone: [phone]
[2020-03-14] MEDS: LACTATED RINGERS 1,000 ML 42 ML IV ×2 (09:23→12:32)
--- NOTE | 2020-03-14 10:49 | P.HP_ITS ---
History of Present Illness History of Present Illness Date Patient Seen: 03/14/20 Time Patient Seen: 10:50 Date of Onset of Symptoms: 03/14/20 Chief complaint: *OPB* Narrative: This is a 64-year-old female who is here for an interval appendec jose g. She presented with acute appendicitis non perforated with fecalith 2 months ago. 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 She was managed with non operative therapy at the time of her initial presentation given the extremely close proximity of her transplanted kidney and her appendix. She has been on antibiotic therapy and seemingly recovered she is here for interval appendectomy. Patient History Medical History Chickenpox (1963) Cystinuria Eczema Fractures (2014) Hyperlipemia (~07/2017) Hypertension Intractable right lower quadrant abdominal pain Kidney stones Mumps (1964) Rosacea Surgical History Hx of lithotripsy (~1985) Hx of surgical procedure Hx of tonsillectomy Status post kidney autotransplantation (1987) Family & Social History Family History Father Cancer Mother No problems noted. Social History: household members spouse Tobacco & Substance use: Smoking Status Never smoker alcohol intake never Substance Use Type does not use Meds Home Medications and Allergies Home Medications Medication Instructions Recorded Confirmed Type hydrocodone 10 mg-acetaminophen 1 tab PO QID PRN 07/22/18 03/14/20 History 325 mg tablet epinephrine 0.3 mg/0.3 mL 0.3 mg IM Q10M PRN #1 each 10/26/18 03/10/20 Rx injection, auto-injector atenolol 25 mg PO BID #60 tab 01/10/20 03/14/20 Rx docusate sodium [DOK] 100 mg PO BID #30 cap 01/10/20 03/14/20 Rx Allergies Allergy/AdvReac Type Severity Reaction Status Date / Time sulfamethoxazole Allergy Severe Anaphylaxis Verified 03/14/20 09:21 [From Bactrim] trimethoprim [From Bactrim] Allergy Severe Anaphylaxis Verified 03/14/20 09:21 Penicillins Allergy Intermediate Hives Verified 03/14/20 09:21 ciprofloxacin [CIPROFLOXACIN] Allergy Unknown Verified 03/14/20 09:21 Review of Systems Review of Systems Narrative: A 10 point review of systems is negative except as noted in the HPI Exam Vital Signs (past 8 hours): - 03/14/20 09:38 Temperature 97.6 F Pulse Rate 81 Respiratory Rate 20 Blood Pressure 195/97 H Pulse Oximetry 97 Oxygen Delivery Method Room Air Narrative Exam Narrative: General-no acute distress, well nourished adult woman, obese HEENT-moist mucous membranes, no scleral icterus Neck-supple, no lymphadenopathy Chest- non labored respirations, clear to auscultation bilaterally Cardiac-regular rate no peripheral edema Abdomen-soft, nontender, non distended Extremities-warm, well perfused Neurological-alert and oriented, no focal deficits Assessment & Plan Assessment & Plan narrative: 64-year-old female with an auto transplanted right kidney adjacent to her appendix here for interval appendectomy. She has a fecalith she was managed with antibiotic therapy for an acute presentation of appendicitis it is now 2 months later and she is here for interval appendectomy. Long discussion with the patient I told her my intention is to perform a laparoscopic appendectomy possible open. I told her that if the kidney cannot be safely from her appendix I would abort the procedure and we could continue with medical management of her appendicitis. Operative risks including bleeding infection damage to surrounding structures recurrent appendicitis have been discussed. Questions have been answered and she is in agreement with this plan.
[2020-03-14] MEDS: MEROPENEM 500 MG in SODIUM CHLORIDE 0.9% 100 ML 200 ML IV (11:20)
--- NOTE | 2020-03-14 11:54 | SUR.OPER ---
Supine on padded OR bed, head on pillow, left arm padded and tucked at side, right arm on padded arm board at < 90 degrees, legs uncrossed, safety belt at thigh, tape over blanket over lower legs .
[2020-03-14] MEDS: BUPIVACAINE 0.5% W/ EPI (PF) 30 ML VIAL INJ (12:03)
[2020-03-14] MEDS: BUPIVACAINE LIPOSOME 266 MG/20 ML VIAL INJ (14:01)
[2020-03-14] MEDS: HYDROMORPHONE 2 MG INJ IV ×4 (15:05→15:30)
[2020-03-14] MEDS: OXYCODONE/ACETAMINOPHEN 5/325 TABLET 1 TAB PO ×2 (15:53→16:29)
--- NOTE | 2020-03-14 16:05 | P.OP_ITS ---
Operative Date/Time/Diagnoses Date of procedure: 03/14/20 Time of procedure: 16:05 Pre-op diagnosis: Appendicitis, intra abdominal adhesions Post-op diagnosis: same Procedure & Clinicians Procedure: Diagnostic laparoscopy. Lysis of adhesions, exploratory laparotomy, appendectomy Same procedure as scheduled: Yes Indications: This is a 64-year-old woman who has a history of an auto transplanted kidney to her right lower quadrant who developed acute appendicitis 2 months ago. Appendix was with fecalith and ruptured at presentation but given her complex surgical history it was initially managed non operatively with antibiotic therapy. She is here for interval appendectomy today she continues to have chronic right lower qudrant pain. Surgeon: Elie Pérez Administrative Office Specialist: Jozef Miller Click Yes if Unassisted: No Anesthesia Type: General Operative Notes Findings: Dense intra abdominal adhesions prinicpally to the midline and right lower qudrant. Appendix was fused between the cecum and the superior aspect of the transplanted right kidney. Appedix base appeared to have perforated and there was necrotic fat surrounding the base. Periappendical abscess cultures taken. 1 mm enterotomy in the mid small bowel. Specimen(s): other (appendix, intra abdominal abscess) Estimated Blood Loss (mL): 50 Procedure in detail: Patient was brought to the operating room placed supine on the table. Bilateral lower extremity compression devices were applied. General anesthesia was induced and she was intubated with an endotracheal tube. Hancock catheter was placed. The left arm was tucked and appropriately padded. She was prepped and draped in sterile fashion. She received meropenem prior to skin incision. Time-out was performed. Made a 1 cm incision on the left lower quadrant the subcutaneous tissue was divided the fascia was elevated sharply incised and the abdomen was entered atraumatically. Twelve wound meter balloon trocar was then placed into the abdomen and pneumoperitoneum was established. Inspection demonstrated no evidence of injury upon entry there were extremely dense adhesions across the midline from her previous laparotomy as well as the on that in the right lower quadrant. Additional working ports of 5 mm were placed suprapubic as well as left upper quadrant. Using sharp dissection a lysis of adhesions was performed. A midline was successfully cleared of adhesions however the right lower quadrant or the kidney had been auto transpl anted and the appendix is perforated hole was very stuck and I was unable to proceed further laparoscopically. The midline scar was then opened sharply subcutaneous tissues divided fascia elevated sharply incised and the abdomen was entered. Self-retaining retractor was placed. With careful sharp lysis of adhesions the ascending colon could be identified and then tracing the tenia to the cecum. There was a rind of tissue around the base of the cecum and with dissection here there was purulence drainage of an abscess cultures were sent. The appendix was essentially fused onto the cecum and it was bordered by the superior aspect of the transplanted kidney. The planes were carefully identified and the appendix was dissected out of the surrounding tissues following the tip of the appendix towards the cecum. The mesentery was divided with the LigaSure. The base of the appendix is were the perforation had likely occurred 2 months ago and this had been likely necrotic and then of had fused closed. The appendix spontaneously fractured off its base where it had necrosised. Inspected the base of the appendix and debrided it of necrotic tissue there was no patent appendiceal lumen remained, it had likely fused closed with the acute appendicitis. The base of the appendix was then dunked with imbricating Vicryl suture. A 1 mm enterotomy in the mid small bowel was some identified and closed in 2 layer fashion with Vicryl followed by imbricating silk suture, which is a common occurrence given the extensive degree of intra-abdominal adhesions. I tested the closure of the enterotomy there was no evidence of leak A ENE drain was then placed along the cecum. The left lower quadrant trocar site was closed from inside the abdomen using Vicryl suture. The abdomen was irrigated the fascia was closed in interrupted fashion using 1. PDS suture subcutaneous tissue closed with Vicryl and the skin reapproximated with kristine. Post-operative Condition: stable Disposition: Acute Care
[2020-03-14] MEDS: SODIUM CHLORIDE 0.9% 1,000 ML 125 ML IV (16:25)
[2020-03-14] MEDS: KETOROLAC 30 MG/ML VIAL IV ×2 (17:26→23:58)
[2020-03-14] MEDS: DOCUSATE 100 MG CAPSULE PO (19:21)
[2020-03-14] MEDS: ACETAMINOPHEN 325 MG TABLET 650 MG PO ×2 (19:21→23:58)
[2020-03-14] MEDS: atenoloL 25 MG TABLET PO (19:21)
[2020-03-14] MEDS: OXYCODONE IR 10 MG TABLET PO (20:41)
[2020-03-14] MEDS: HYDROMORPHONE 1 MG INJ IV (22:11)
[2020-03-14] MEDS: ONDANSETRON 4 MG/2 ML INJ IV (22:20)
[2020-03-15] VITALS (12 sets, daily range): BP systolic 132–164; BP diastolic 65–93; PULSE 82–103; RESP 16–18; TEMP 36.5–36.8; O2SAT 93–100
[2020-03-15] MEDS: LORazepam 1 MG TABLET PO (00:01)
--- NOTE | 2020-03-15 01:07 | PC.NURSE ---
Addendum entered by Mary Tong R.N. 03/15/20 06:13: 0600 Pt c/o stinging sensation in urethra. Will report to provider. Addendum entered by Mary Tong R.N. 03/15/20 04:58: 0430 Pt vomiting. Wound dressing checked; CDI. ENE drain checked and drained 50cc, serosanguineous. Abdomen is distended, soft. Urinary catheter has only shown 280mL of urine since 2299. [address] Spear who gives verbal OK for additional dose of 4mg Zofran, and adds additional order for 25mg Promethazine for when/if Zofran does not work for her. Zofran administered. Pt total emesis 150cc, green/brown in color. Pt is now resting. No s/sx of distress. Original Note: 2299 Received safe patient hand-off. The patient is awake in bed, alert x4. She reported feeling a pop at the surgical site when coughing; visualization of surgical site shows no signs of bleeding and dressing is still intact, clean and dry. ENE drain currently has 10cc of serosanguineous fluid. The patient reports pain muscle spasms 6/10 and voices anxiety. Bed alarm is on. No s/sx of distress. [address] Spear, on-call physician, re: anxiety and abdominal muscle spasms. Requested either hydroxyzine or lorazepam. Dr. Spear gives verbal order for 1mg lorazepam PO ONCE. Order placed. 0115 Patient safety check. The patient is resting in bed. Reports feeling better r/t anxiety and pain. No s/sx of distress.
[2020-03-15] MEDS: OXYCODONE IR 10 MG TABLET PO ×4 (04:13→20:40)
[2020-03-15] MEDS: ONDANSETRON 4 MG/2 ML INJ IV (04:45)
[2020-03-15 04:48] LABS: Add Manual Diff / Slide Review NO; Basophils Absolute Auto 100 /uL (0-100); Basophils Percent Auto 0.4 % (0-2); Eosinophils Absolute Auto 0 /uL (0-450); Hemoglobin 13.7 g/dL (12.0-16.0); Lymphocytes Absolute Auto 1400 /uL (1100-4500); Lymphocytes Percent Auto 9.6 % (25-40); Mean Corpuscular HGB Conc 33.4 % (30-36); Mean Corpuscular Hemoglobin 31.5 PG (26-34); Mean Corpuscular Volume 94.4 fL (80-100); Monocytes Absolute Auto 1500 /uL (0-900); Monocytes Percent Auto 9.7 % (3-14); Neutrophils Absolute Auto 12100 /uL (1500-7000); Neutrophils Percent Auto 80.3 % (50-75); Platelet Count 260 X10^3/uL (150-400); Red Blood Cell Count 4.34 X10^6/uL (4.0-5.2); Red Cell Distribution Width 14.3 % (11.6-14.8); White Blood Cell Count 15.1 X10^3/uL (4.5-11.0)
[2020-03-15 04:54] LABS: BUN Creatinine Ratio 16.9 (6-22); Blood Urea Nitrogen 21 mg/dL (7-17); Calcium 8.5 mg/dL (8.4-10.2); Carbon Dioxide 32 mmol/L (22-32); Chloride 102 mmol/L (98-107); Estimated Glomerular Filt Rate 43.7 mL/min (>60); Glucose 132 mg/dL (80-110); HEMOLYSIS < 15 (0-50); Potassium 4.6 mmol/L (3.4-5.1); Sodium 138 mmol/L (137-145)
[2020-03-15] MEDS: ACETAMINOPHEN 325 MG TABLET 650 MG PO ×4 (06:07→23:29)
[2020-03-15] MEDS: PROMETHAZINE 25 MG TABLET PO ×2 (07:32→23:30)
[2020-03-15] MEDS: KETOROLAC 30 MG/ML VIAL IV ×3 (07:32→23:29)
[2020-03-15] MEDS: SODIUM CHLORIDE 0.9% 1,000 ML 125 ML IV ×2 (07:33)
[2020-03-15] MEDS: DOCUSATE 100 MG CAPSULE PO ×2 (07:52→20:39)
[2020-03-15] MEDS: atenoloL 25 MG TABLET PO ×2 (07:52→20:39)
[2020-03-15] MEDS: ENOXAPARIN 40 MG/0.4 ML SYRINGE SUBCUT (07:52)
--- NOTE | 2020-03-15 09:10 | CM.DANOTE ---
DCP: Case received, EMR reviewed and met with patient. Introduced self and role. Was able to meet with patient and obtain information regarding his baseline activity status prior to hospitalization. DCP assessment completed with information currently available. Patient is a 64 year old female who admitted yesterday morning to the care of the surgical team. PCP: Dr. Ji. Payer: confirmed: [facility]. Patient came to the hospital via private vehicle for a surgical procedure. She had a exploratory laparascopic appendectomy. Patient has been on ABO for appendicitis prior to having surgery. Met with patient in her room. She was sitting up in her chair, respiratory therapy had just been working with patient. She is alert and oriented, and independent at baseline. Patient indicated her is very supportive at home, he is an transfer engineer, and is very organized at home. P: DCP to continue to follow. Patient should be able to go home when she is medically stable. Amelia Thapa RN/Video Player Mechanic
--- NOTE | 2020-03-15 11:30 | PC.NURSE ---
Patient is tolerating oral intake and general diet. No complaints of nausea at this time. Pain is well controlled w/ 10mg of Oxycodone PRN. Patient reports pain went from a six to zero.
--- NOTE | 2020-03-15 13:03 | PM.PNPO.1 ---
Subjective Subjective Date Patient Seen: 03/15/20 Time Patient Seen: 13:03 Interval history: Nauseated overnight, feels better this AM. Tolerated clears this morning, +flatus, pain controlled with IV meds. Exam Vital Signs (past 8 hours): - 03/15/20 08:10 03/15/20 08:54 03/15/20 09:00 Temperature 98.1 F Pulse Rate 103 H 87 Respiratory Rate 16 16 Blood Pressure 155/91 H Pulse Oximetry 95 96 95 03/15/20 11:39 Temperature 98.3 F Pulse Rate 90 Respiratory Rate 16 Blood Pressure 138/65 Pulse Oximetry 100 Oxygen Delivery Method Room Air Oxygen Flow Rate 0 Narrative Exam Narrative: Gen-Adult female alert oriented no distress Chest-non labored resp Abdomen-Soft, appropriately tender to palpation, drain serosanginous Objective Labs Result Diagrams: 03/15/20 04:15 03/15/20 04:15 Labs: Laboratory Results - last 24 hr 03/15/20 03/15/20 04:15 04:15 WBC 15.1 H RBC 4.34 Hgb 13.7 Hct 41.0 MCV 94.4 MCH 31.5 MCHC 33.4 RDW 14.3 Plt Count 260 Neut % (Auto) 80.3 H Lymph % (Auto) 9.6 L [place] % (Auto) 9.7 Eos % (Auto) 0.0 L Baso % (Auto) 0.4 Neut # (Auto) 32759 H Lymph # (Auto) 1400 [place] # (Auto) 1500 H Eos # (Auto) 0 Baso # (Auto) 100 Sodium 138 Potassium 4.6 Chloride 102 Carbon Dioxide 32 BUN 21 H Creatinine 1.24 H Estimated GFR 43.7 L BUN/Creatinine Ratio 16.9 Glucose 132 H Calcium 8.5 PFSH Medical History Chickenpox (1963) Cystinuria Eczema Fractures (2014) Hyperlipemia (~07/2017) Hypertension Intractable right lower quadrant abdominal pain Kidney stones Mumps (1964) Rosacea Surgical History Hx of lithotripsy (~1985) Hx of surgical procedure Hx of tonsillectomy Status post kidney autotransplantation (1987) Family History Father Cancer Mother No problems noted. Social History marital status: household members: spouse occupational status: employed Smoking Status: Never smoker alcohol intake: never substance use type: does not use Assessment & Plan Post-op Postoperative Procedures: Procedures Operation Date: 03/14/20 10:45 Actual Procedures Side Surgeon p Exploratory laparoscopy with lysis of adhsesions, open lapartomy and appendectomy Elie Pérez MD Postoperative status narrative: 64F POD 1 sp open interval appendectomy lysis of adhesions. Overall progressing appropriately. Labs notable for WBC 15, Cr 1.2 (0.8 baseline) and no organisms from appendiceal fluid collection. -Remove [place] -Advance from clears to regular -Acute kidney injury-Continue IVF until taking adequate PO monitor -DC antibiotics. Culture of debrided appendiceal abscess demonstrates no organisms. Suspect leukocytosis secondary to inflammatory response will monitor. -SCDs and Lovenox for VTE prophylaxis -If minimal drain output can remove prior to discharge -OOB, PT consult
--- NOTE | 2020-03-15 14:14 | PT.IIE ---
Current Diagnoses Unspecified acute appendicitis (03/14/20) Surgery Performed Operation Date: 03/14/20 10:45 Actual Procedures p Exploratory laparoscopy with lysis of adhsesions, open lapartomy and appendectomy - Elie Pérez MD Surgical History (Last Reviewed 03/14/20 @ 10:51 by Elie Pérez MD) Hx of lithotripsy (~1985) Hx of surgical procedure Hx of tonsillectomy Status post kidney autotransplantation (1987) Medical History (Last Reviewed 03/14/20 @ 10:51 by Elie Pérez MD) Chickenpox (1963) Cystinuria Eczema Fractures (2014) Hyperlipemia (~07/2017) Hypertension Intractable right lower quadrant abdominal pain Kidney stones Mumps (1964) Rosacea Physical Therapy Inpatient Evaluation/Re-Eval M1 PT/OT-IP Prior Functional Status Start: 03/15/20 15:04 Freq: NEEDED Status: Active Protocol: Document 03/15/20 14:14 AB (Rec: 03/15/20 15:21 AB [id number]) Medical Review Prior Functional Status Medical History Reviewed Yes Communication able to make needs known Mobility and Gait pt stated that she is independent with all mobilities and ambulation without AD Social History Household Members spouse Living Arrangements House Number of Floors (Floors) 3 or More Floors Number of Stairs To Enter/Railing? pt will stay on main level of the house; has 10 steps to enter with R rail ascending( has a landing after ~ 3 steps) Home Environment High Toilet,Walk in Shower, Built-In Shower Seat Home Equipment Straight Cane,Shower Seat with Backrest,Grab Bars Near Toilet,Grab Bars In Shower Additional Social History Comment pt has a bidet, [email or web address] M2 PT-IP Current Condition Start: 03/15/20 15:04 Freq: NEEDED Status: Active Protocol: Document 03/15/20 14:14 AB (Rec: 03/15/20 15:21 AB [id number]) Physical Therapy Current Condition Current Condition Evaluation Date 03/15/20 Treatment Diagnosis appendicitis/abd adhesions s/p appendectomy, ex-lap; difficulty in walking Onset Date 03/14/20 Precautions Abdominal Surgery Precautions Log Roll,Lifting Restrictions, Gait Belt above Incisional Area M3 PT-IP Subjective Start: 03/15/20 15:04 Freq: NEEDED Status: Active Protocol: Document 03/15/20 14:14 AB (Rec: 03/15/20 15:21 AB [id number]) Subjective Physical Therapy Visit Type Type Initial Evaluation Visit Start Time 14:14 Visit Stop Time 14:48 Total Visit Minutes 34 Number of PROGRAM ELIGIBILITY SPECIALIST Visits 0 Physical Therapy Visit Comments Patient Comments pt is agreeable to do PT; stated that she wants to go home today Therapy Pain Assessment Pain When Pain Assessed At Rest Pain Present Pain Present Pain Reported Location Bilateral Lower Abdomen Intensity 2 Scale Used increases with upright posture Pain Management Techniques Modification of Treatment, Timing of Activity with Medications M4 PT-IP Mobility and Gait Start: 03/15/20 15:04 Freq: NEEDED Status: Active Protocol: Document 03/15/20 14:14 AB (Rec: 03/15/20 15:21 AB [id number]) PT-Bed Mobility Assessment Rolling Type of Rolling Log Rolling Level of Assist Standby Assistance Supine to Sit Supine to Sit Standby Assistance Sit to Supine Sit to Supine Standby Assistance PT-Transfer Assessment Sit to and From Stand Sit to and from Stand Standby Assistance Equipment Transfer Assistive Device None,Gait Belt Orthotic/Prosthetic Devices or Brace: No Comments Mobility Comments checked on pt and pt is supine in bed. reviewed abdominal precautions and log roll bed mobility. pt completed supine <>sit SBA but with difficulty completing and pt is impulsive. educated pt on techniques on log roll bed mobility. completed again requiring SBA and pt is steadier. educated spouse on how to assist pt if needed and understood. pt ambulated in room [facility] AD ~ 20 ft requiring CGA. pt presents with unsteady antalgic gait and with difficulty standing upright and c/o pain on abdomen with upright posture. assessed ambulation using SPC and completed ~ 70 ft CGA and cues. completed up/down steps using R rail and SPC with PT initially assisting CGA. educated spouse on how to assist pt and pt completed stairs again with spouse assisting and was able to complete safely. pt ambulated back to her room ~ 70 ft using SPC. educated spouse on how to assist pt using safety belt and was able to assist pt with ambulation. informed pt that she is still unsteady with SPC and agreed to use FWW and completed SBA. educated spouse on how to use safety belt and was able to don/doff on pt. educated pt and spouse regarding safety and recommendation of FWW for ambulation especially for long distance ambulation. pt and spouse agreed and stated that they can borrow one. At this time, pt will be ok using SPC with assist from the spouse. Spouse agreed. Left pt with nurse. Gait Assessment Gait Gait Assistance Required: Standby Assistance,Contact Guard Assist Distance (Feet) 70 Able to Maintain Weight Bearing Status Yes During Gait Assistive Devices Assistive Device None,Gait Belt,Tripod Cane/ Hurry Cane,Front Wheeled Walker Orthotic/Prosthetic Devices or Brace: No Gait Deviations General Gait Pattern Antalgic,Decreased Stride Length,Decreased Feet Clearance,Step-to Gait Factors Limiting Gait Function Factors Limiting Gait Function Decreased Activity Tolerance, Decreased Strength,Limited Range of Motion,Poor Balance, Poor Safety Awareness Comments Gait Comments pls refer to mobility section for details Stair Climbing Assessment Evaluation Level of Assist On Stairs Contact Guard Assistance,1 Person Assistance Devices Stair Climbing Assistive Devices Straight Cane,Right Railing Technique/Endurance Stair Climbing Direction Ascend and Descend Stair Climbing Technique Step to Step Number of Steps Climbed 3 Query Text: Stair Climbing Set # Repetitions (reps) 2 PT-Balance Assessment Sitting Balance and Reactions Static Sitting Balance Ability Good Dynamic Sitting Balance Ability Good Standing Balance and Reactions Static Standing Balance Ability Fair Dynamic Standing Balance Ability Fair Device Used without AD M5 PT-IP Objective Assessments Start: 03/15/20 15:04 Freq: NEEDED Status: Active Protocol: Document 03/15/20 14:14 AB (Rec: 03/15/20 15:21 AB [id number]) Orientation Orientation/Cognition Level of Alertness Alert Orientation Name,Place,Situation Language Function Ability No Deficits Noted Safety Awareness Understands Safety Issues Memory Description No Deficits Noted Gross Range of Motion Lower Extremity ROM Assessment Within Functional Limits Strength Lower Extremity Strength Assessment Within Functional Limits Sensation Assessment Sensation Gross Sensation WNL Muscle Tone Muscle Tone WNL Yes M6 PT-IP Treatment Start: 03/15/20 15:04 Freq: NEEDED Status: Active Protocol: Document 03/15/20 14:14 AB (Rec: 03/15/20 15:21 AB [id number]) Physical Therapy Treatment Education Education Provided Precautions,Safety M7 PT-IP Assessment and Plan Start: 03/15/20 15:04 Freq: NEEDED Status: Active Protocol: Document 11/25/20 14:14 AB (Rec: 03/15/20 15:21 AB [id number]) PT Summary Assessment and Plan Potential Rehabilitation Potential Good Status of Condition at Evaluation Stable Summary Impairments Pain,ROM,Strength,Balance,Bed Mobility,Transfers,Gait, Activity Tolerance Assessment Summary pt requiring CGA with mobility and caregiver training conducted and spouse is able to assist pt safely. pt may benefit from homehealth PT to improve strength, standing balance, activity tolerance and mobility independence. pt may go home when medically stable. Goals Bed Mobility Goal Independent Transfer Goal Independent,Cane Gait Goal Independent,Cane Gait Distance 200 Other Goals ambulation without AD SBA 200 ft up/down 10 steps R rail ascending SBA Days to Meet Goals 5 Frequency of Treatment Frequency Of Treatment Once a Day Treatment Plan Physical Therapy Treatment Plan Bed Mobility Training,Transfer Training,Gait Training, Therapeutic Exercise,Balance Retraining,Post Op Education, Discharge Planning,Hot or Cold Pack,Neuromuscular Re-ed, Coordination Retraining,Manual Therapy Recommendations To Nursing Amount of Assist Needed 1 Person Assist Discharge Recommendations PT Discharge Recommendations Home with Assistance,Home Health Transportation Needs at Discharge Private Vehicle
[2020-03-15] MEDS: SODIUM CHLORIDE 0.9% FLUSH 10 ML IV ×3 (14:46→23:30)
[2020-03-16] MEDS: OXYCODONE IR 10 MG TABLET PO ×2 (03:41→09:46)
[2020-03-16 04:00] VITALS: BP 150/88; PULSE 84; RESP 18; TEMP 36.6; O2SAT 97
[2020-03-16] MEDS: KETOROLAC 30 MG/ML VIAL IV ×2 (05:22→13:13)
[2020-03-16] MEDS: ONDANSETRON 4 MG/2 ML INJ IV ×2 (05:22→13:13)
--- NOTE | 2020-03-16 05:35 | PC.NURSE ---
Pain control not quite optimal for patient. She is also having a difficult time tolerating administration of Toradol, c/o burning sensation even with slow infusion. Leaving note for doctor, requesting a change in pain medication regimen. She also does not like the way the dilaudid makes her feel, so she has been declining that.
[2020-03-16 05:42] LABS: Add Manual Diff / Slide Review NO; Basophils Absolute Auto 100 /uL (0-100); Basophils Percent Auto 0.4 % (0-2); Eosinophils Absolute Auto 200 /uL (0-450); Eosinophils Percent Auto 1.2 % (2-4); Hematocrit 37.4 % (36-46); Hemoglobin 12.1 g/dL (12.0-16.0); Lymphocytes Absolute Auto 1800 /uL (1100-4500); Lymphocytes Percent Auto 13.2 % (25-40); Mean Corpuscular HGB Conc 32.5 % (30-36); Mean Corpuscular Hemoglobin 30.9 PG (26-34); Mean Corpuscular Volume 95.3 fL (80-100); Monocytes Absolute Auto 1300 /uL (0-900); Monocytes Percent Auto 9.4 % (3-14); Neutrophils Absolute Auto 10300 /uL (1500-7000); Neutrophils Percent Auto 75.8 % (50-75); Platelet Count 210 X10^3/uL (150-400); Red Blood Cell Count 3.93 X10^6/uL (4.0-5.2); Red Cell Distribution Width 14.5 % (11.6-14.8); White Blood Cell Count 13.5 X10^3/uL (4.5-11.0)
[2020-03-16 05:50] LABS: BUN Creatinine Ratio 22.8 (6-22); Blood Urea Nitrogen 31 mg/dL (7-17); Calcium 7.9 mg/dL (8.4-10.2); Carbon Dioxide 30 mmol/L (22-32); Chloride 104 mmol/L (98-107); Estimated Glomerular Filt Rate 39.3 mL/min (>60); Glucose 106 mg/dL (80-110); HEMOLYSIS < 15 (0-50); Potassium 4.8 mmol/L (3.4-5.1); Sodium 136 mmol/L (137-145)
[2020-03-16] MEDS: ACETAMINOPHEN 325 MG TABLET 650 MG PO ×2 (06:07→13:13)
[2020-03-16 08:00] VITALS: BP 148/84; PULSE 87; RESP 16; TEMP 36.9; O2SAT 97
[2020-03-16 08:22] VITALS: PULSE 87; RESP 16; O2SAT 97
[2020-03-16] MEDS: DOCUSATE 100 MG CAPSULE PO (09:11)
[2020-03-16] MEDS: SODIUM CHLORIDE 0.9% FLUSH 10 ML IV (09:11)
[2020-03-16] MEDS: ENOXAPARIN 40 MG/0.4 ML SYRINGE SUBCUT (09:11)
[2020-03-16] MEDS: atenoloL 25 MG TABLET PO (09:11)
--- NOTE | 2020-03-16 11:13 | PT.IPTN ---
Current Diagnoses Unspecified acute appendicitis (03/14/20) Surgery Performed Operation Date: 03/14/20 10:45 Actual Procedures p Exploratory laparoscopy with lysis of adhsesions, open lapartomy and appendectomy - Elie Pérez MD Physical Therapy Treatment Note M2 PT-IP Current Condition Start: 03/15/20 15:04 Freq: NEEDED Status: Active Protocol: Document 03/16/20 10:46 DCW (Rec: 03/16/20 11:12 DCW [id number]) Physical Therapy Current Condition Current Condition Evaluation Date 03/15/20 Treatment Diagnosis appendicitis/abd adhesions s/p appendectomy, ex-lap; difficulty in walking Onset Date 03/14/20 Precautions Abdominal Surgery Precautions Log Roll,Lifting Restrictions, Gait Belt above Incisional Area M3 PT-IP Subjective Start: 03/15/20 15:04 Freq: NEEDED Status: Active Protocol: Document 03/16/20 10:46 DCW (Rec: 03/16/20 11:12 DCW [id number]) Subjective Physical Therapy Visit Type Visit Start Time 10:46 Visit Stop Time 10:59 Total Visit Minutes 13 Physical Therapy Visit Comments Patient Comments I got my pain and nausea much better controlled, so I am feeling really good right now. M4 PT-IP Mobility and Gait Start: 03/15/20 15:04 Freq: NEEDED Status: Active Protocol: Document 03/16/20 10:46 DCW (Rec: 03/16/20 11:12 DCW [id number]) PT-Bed Mobility Assessment Rolling Type of Rolling Log Rolling Level of Assist Independent Supine to Sit Supine to Sit Independent Sit to Supine Sit to Supine Independent PT-Transfer Assessment Sit to and From Stand Sit to and from Stand Independent Equipment Transfer Assistive Device None,Gait Belt Orthotic/Prosthetic Devices or Brace: No Comments Mobility Comments Pt supine in bed upon arrival. Pt demonstrates knowledge regarding abdominal precautions, able to log roll to sidelying and sit up SBA. Pt sit<->stand SBA, ambulates out of room with SPC, mask on into hallway, ambulates 212'. Pt required a standing rest break ~2/[address], notes she was much more tired than she expected to be, and had to slow her eben considerably for the remainder of her walk. Sat on EOB for a few minutes to recover, and then wanted to return to bed. Hospitalist entered room upon exit of physical therapist. Gait Assessment Gait Gait Assistance Required: Standby Assistance Distance (Feet) 212 Able to Maintain Weight Bearing Status Yes During Gait Assistive Devices Assistive Device None,Gait Belt,Straight Cane Orthotic/Prosthetic Devices or Brace: No Gait Deviations General Gait Pattern Antalgic,Decreased Stride Length,Decreased Feet Clearance Factors Limiting Gait Function Factors Limiting Gait Function Decreased Activity Tolerance, Decreased Strength,Pain M5 PT-IP Objective Assessments Start: 03/15/20 15:04 Freq: NEEDED Status: Active Protocol: Document 03/15/20 14:14 AB (Rec: 03/15/20 15:21 AB [id number]) Orientation Orientation/Cognition Level of Alertness Alert Orientation Name,Place,Situation Language Function Ability No Deficits Noted Safety Awareness Understands Safety Issues Memory Description No Deficits Noted Gross Range of Motion Lower Extremity ROM Assessment Within Functional Limits Strength Lower Extremity Strength Assessment Within Functional Limits Sensation Assessment Sensation Gross Sensation WNL Muscle Tone Muscle Tone WNL Yes M6 PT-IP Treatment Start: 03/15/20 15:04 Freq: NEEDED Status: Active Protocol: Document 03/15/20 14:14 AB (Rec: 03/15/20 15:21 AB [id number]) Physical Therapy Treatment Education Education Provided Precautions,Safety M7 PT-IP Assessment and Plan Start: 03/15/20 15:04 Freq: NEEDED Status: Active Protocol: Document 03/16/20 10:46 DCW (Rec: 03/16/20 11:12 DCW [id number]) PT Summary Assessment and Plan Summary Impairments Pain,ROM,Strength,Balance,Bed Mobility,Transfers,Gait, Activity Tolerance Assessment Summary Pt largely SBA today, demonstrated appropriate safety and abdominal precautions. Increased gait distance today to 212', pt able to do it, however very fatigued by end of session, unable to do much more than get back in bed. Pt did display ability to perform sit <->stand independently, and returned to supine independently. Goals Bed Mobility Goal Independent Transfer Goal Independent,Cane Gait Goal Independent,Cane Gait Distance 200 Other Goals ambulation without AD SBA 200 ft up/down 10 steps R rail ascending SBA Days to Meet Goals 5 Frequency of Treatment Frequency Of Treatment Once a Day Treatment Plan Physical Therapy Treatment Plan Bed Mobility Training,Transfer Training,Gait Training, Therapeutic Exercise,Balance Retraining,Post Op Education, Discharge Planning,Hot or Cold Pack,Neuromuscular Re-ed, Coordination Retraining,Manual Therapy Recommendations To Nursing Amount of Assist Needed 1 Person Assist Discharge Recommendations PT Discharge Recommendations Home with Assistance,Home Health Transportation Needs at Discharge Private Vehicle
--- NOTE | 2020-03-16 11:27 | P.PN_ITS ---
Subjective Subjective Interval history: She is doing quite very well on this postoperative day 2. No events overnight. No fever, no tachycardia, vitals within normal limits. Had tolerated regular diet for lunch and dinner yesterday, and breakfast this morning. No nausea, denies worsening abdominal distension. Had large amount of flatus this morning. Voiding without problem. Her pain is controlled where she is overall comfortable. Was already walking again today with physical therapy and took some steps with physical therapy. ENE drain output still more on sanguinous side, about 85 cc. She would really like to go home today and feels ready to go home today. Hemoglobin 12. Creatinine 1.36 from 1.24 noted. Exam Vital Signs (past 8 hours): - 03/16/20 04:00 03/16/20 08:00 03/16/20 08:22 Temperature 97.9 F 98.5 F Pulse Rate 84 87 87 Respiratory Rate 18 16 16 Blood Pressure 150/88 H 148/84 H Pulse Oximetry 97 97 97 Oxygen Delivery Method Room Air Oxygen Flow Rate 0 Narrative Exam Narrative: Appears well, no apparent distress, overall very comfortable appearing. She just got back to bed from physical therapy. No labored breathing, not tachypneic. Abdomen soft, appropriately tender around incisions, wounds clean, no discharge, some bruising over on the midline lower abdomen noted, ENE drain moderate output transportation aid sanguinous. Intact motor sensory, range of motion. No focal neurological deficit. Objective Labs Result Diagrams: 03/16/20 05:30 03/16/20 05:30 Labs: Laboratory Results - last 24 hr 03/16/20 03/16/20 05:30 05:30 WBC 13.5 H RBC 3.93 L Hgb 12.1 Hct 37.4 MCV 95.3 MCH 30.9 MCHC 32.5 RDW 14.5 Plt Count 210 Neut % (Auto) 75.8 H Lymph % (Auto) 13.2 L [place] % (Auto) 9.4 Eos % (Auto) 1.2 L Baso % (Auto) 0.4 Neut # (Auto) 97432 H Lymph # (Auto) 1800 [place] # (Auto) 1300 H Eos # (Auto) 200 Baso # (Auto) 100 Sodium 136 L Potassium 4.8 Chloride 104 Carbon Dioxide 30 BUN 31 H Creatinine 1.36 H Estimated GFR 39.3 L BUN/Creatinine Ratio 22.8 H Glucose 106 Calcium 7.9 L PFSH Medical History Chickenpox (1964) Cystinuria Eczema Fractures (2014) Hyperlipemia (~07/2017) Hypertension Intractable right lower quadrant abdominal pain Kidney stones Mumps (1964) Rosacea Surgical History Hx of lithotripsy (~1985) Hx of surgical procedure Hx of tonsillectomy Status post kidney autotransplantation (1987) Family History Father Cancer Mother No problems noted. Social History marital status: household members: spouse occupational status: employed Smoking Status: Never smoker alcohol intake: never substance use type: does not use Assessment & Plan Assessment & Plan narrative: Progressing well postoperative day 2, with adequate pain control, tolerating diet, and ambulatory. She is appropriate for discharge home today with ENE drain. ENE drain teaching. Plan to see her in the clinic next Friday for possible drain removal. She already has pain medication and stool softener from her pain clinic and will resume that.
[2020-03-16 11:29] VITALS: BP 141/90; PULSE 84; RESP 17; TEMP 36.8; O2SAT 96
--- NOTE | 2020-03-16 11:37 | P.DS_ITS ---
History of Present Illness History of Present Illness Chief complaint: *OPB* Discharge Providers Provider Date of admission: 03/14/20 08:48 Discharge Date: 03/16/20 Primary care physician: Syed Ji DO Consults: 03/15/20 13:13 Consult to Physical Therapy Evaluate & Treat Comment: Physician Instructions: Evaluate and Treat Discharge provider: Faith Spear MD / Elie Pérez MD Summary Hospital Course Hospital Course: Progressing well postoperative day 2 status post exploratory laparotomy, lysis of adhesion, and appendectomy with drain placement, with adequate pain control, tolerating diet, and ambulatory. She is appropriate for discharge home today with ENE drain, as the output was still moderate in amount and sanguinous. ENE drain teaching. Plan to see her in the clinic next Friday for possible drain removal. She already has pain medication and stool softener from her pain clinic and will resume that. Status at Discharge Cognitive/behavioral status at discharge: oriented Functional status at discharge: independent ambulation Overall status at discharge: patient is back to baseline Exam Vital Signs (past 8 hours): - 03/16/20 04:00 03/16/20 08:00 03/16/20 08:22 Temperature 97.9 F 98.5 F Pulse Rate 84 87 87 Respiratory Rate 18 16 16 Blood Pressure 150/88 H 148/84 H Pulse Oximetry 97 97 97 03/16/20 11:29 Temperature 98.2 F Pulse Rate 84 Respiratory Rate 17 Blood Pressure 141/90 H Pulse Oximetry 96 Oxygen Delivery Method Room Air Oxygen Flow Rate 0 Narrative Exam Narrative: Appears well, no apparent distress, overall very comfortable appearing. She just got back to bed from physical therapy. No labored breathing, not tachypneic, no wheezing. Abdomen soft, appropriately tender around incisions, wounds clean, no discharge, some bruising over on the midline lower abdomen noted, ENE drain moderate output mask inspector sanguinous. Intact motor sensory, range of motion. No focal neurological deficit. Objective Labs Result Diagrams: 03/16/20 05:30 03/16/20 05:30 Labs: Laboratory Results - last 24 hr 03/16/20 03/16/20 05:30 05:30 WBC 13.5 H RBC 3.93 L Hgb 12.1 Hct 37.4 MCV 95.3 MCH 30.9 MCHC 32.5 RDW 14.5 Plt Count 210 Neut % (Auto) 75.8 H Lymph % (Auto) 13.2 L [place] % (Auto) 9.4 Eos % (Auto) 1.2 L Baso % (Auto) 0.4 Neut # (Auto) 09010 H Lymph # (Auto) 1800 [place] # (Auto) 1300 H Eos # (Auto) 200 Baso # (Auto) 100 Sodium 136 L Potassium 4.8 Chloride 104 Carbon Dioxide 30 BUN 31 H Creatinine 1.36 H Estimated GFR 39.3 L BUN/Creatinine Ratio 22.8 H Glucose 106 Calcium 7.9 L PFSH Medical History Chickenpox (1963) Cystinuria Eczema Fractures (2014) Hyperlipemia (~07/2017) Hypertension Intractable right lower quadrant abdominal pain Kidney stones Mumps (1964) Rosacea Surgical History Hx of lithotripsy (~1985) Hx of surgical procedure Hx of tonsillectomy Status post kidney autotransplantation (1987) Family History Father Cancer Mother No problems noted. Social History marital status: household members: spouse occupational status: employed Smoking Status: Never smoker alcohol intake: never substance use type: does not use Discharge Assessment & Plan Assessment and Plan Assessment: Doing well on postoperative day 2, progressing appropriately postop. Plan of Treatment: Discharge home today with ENE drain. Discharge Plan Discharge Plan Patient Disposition: Home Discharge orders & Medications Prescriptions: New ondansetron HCl [Zofran] 4 mg tablet 4 mg PO Q8H PRN (Reason: nausea and vomiting) Qty: 10 RF: 0 Continued hydrocodone-acetaminophen [[place]] 10-325 mg tablet 1 tab PO QID PRN (Reason: pain) RF: 0 epinephrine [EpiPen 2-Patricio] 0.3 mg/0.3 mL auto-injector 0.3 mg IM Q10M PRN (Reason: anaphylaxis) Qty: 1 RF: 0 atenolol 25 mg Tablet 25 mg PO BID Qty: 60 RF: 0 docusate sodium [DOK] 100 mg Capsule 100 mg PO BID Qty: 30 RF: 0 Follow up/Referrals: Syed Ji DO [Primary Care Provider] - Diet/Activity/Treatments Diet: Diet as Tolerated Diet comment: take stool softener daily to prevent constipation Activity: as tolerated Other treatments: increase hydration fluid intake Skin/Wound/Dressing Care Dressing: may shower over wounds Other wound treatment: daily emptying & recording of ENE drain output, bring note to clinic Discharge Data Primary Care Provider: Syed Ji
--- NOTE | 2020-03-16 12:20 | CM.DPC ---
DCP Cont: Patient is to be discharged home today with ENE drain. She will received teaching at discharge by nursing. She is to follow up with surgeon on Friday. She has also been cleared by P.T. P: Patient is to be discharged home today after teaching of ENE drain. Amelia Thapa RN/Live In Companion
--- NOTE | 2020-03-16 13:41 | PC.NURSE ---
Discharge instructions reviewed with patient and her . They state understanding and have no further questions or concerns. ENE drain teaching reviewed and patient states understanding and feels able to care for it appropriately at home. Dr. Spear Removed abdominal bulky dressing during her visit and states to leave incision MONO, ok to shower, and to keep ENE drain site covered with gauze/dressing care daily. Incision kristine intact. Patient is to call office tomorrow to schedule a follow up appointment for Friday with Dr. Pérez. Patient instructed to contact surgeon with questions or concerns, or to seek emergent care for emergency.
== END 2020-03-16 13:50 | disposition home or self-care (01) | DRG 336 ==
LOC: OR 08:49 → AC 08:49
PROVIDERS: Admitting Provider Surgery; Family Provider Internal Medicine Nephrology; PCP Family Medicine; Referring Provider Surgery; Visit Provider Surgery
PROC: 0DTJ4ZZ Resection of Appendix, Percutaneous Endoscopic Approach (ICD-10-PCS; CPT 44970; principal; 2020-03-14 10:45)
DX: K35.33 Acute appendicitis with perforation, localized peritonitis, and gangrene, with abscess (principal); N17.9 Acute kidney failure, unspecified; K66.0 Peritoneal adhesions (postprocedural) (postinfection); I10 Essential (primary) hypertension; E78.5 Hyperlipidemia, unspecified
CPT/HCPCS: 36415; 44950; 80048; 82962; 85025; 87070; 87075; 87077; 87186; 87205; 94762; 97161; 97530; C9290; J0330; J1100; J1170; J1650; J1885; J2185; J2405; J2704; J3010

== ENCOUNTER 2020-04-07 16:16 | Inpatient (IN) | payer OTHER, SELFPAY ==
[2020-03-20 13:25] VITALS: BMI 37.8
[2020-04-07] VITALS (17 sets, daily range): BP systolic 113–170; BP diastolic 64–104; PULSE 85–128; RESP 15–28; TEMP 36.3–37.1; O2SAT 92–99; BMI 27.4
[2020-04-07] MEDS: MORPHINE 2 MG/ML INJ IV (16:40)
--- NOTE | 2020-04-07 16:43 | ED.WOUNDLAC ---
HPI - Wound/Laceration General Chief Complaint: Wound/Laceration Stated Complaint: Ruptured Surgical Incision Time Seen by Provider: 04/07/20 16:25 Source: patient Mode of arrival: Ambulatory Limitations: no limitations History of Present Illness HPI narrative: The patient is a 64-year-old female history of auto transplanted kidney she developed acute appendicitis 2 months ago it was managed non surgically with antibiotics, had open appendectomy 03/14/2020. Today she says her incision ruptures she felt like it was getting warm and swollen and today it ruptured with gross pus. She denies any fever or chills. She thought it was getting warm and swollen is a few days ago even followed up with General surgery on 04/06/2020. Today a ruptured with gross pus coming out. She denies any fever or chills. Related Data Home Medications Medication Instructions Recorded Confirmed hydrocodone 10 mg-acetaminophen 1 tab PO QID PRN 07/22/18 04/06/20 325 mg tablet Previous Rx's Medication Instructions Recorded epinephrine 0.3 mg/0.3 mL 0.3 mg IM Q10M PRN #1 each 10/26/18 injection, auto-injector atenolol 25 mg PO BID #60 tab 01/10/20 Allergies Allergy/AdvReac Type Severity Reaction Status Date / Time sulfamethoxazole Allergy Severe Anaphylaxis Verified 04/06/20 11:38 [From Bactrim] trimethoprim [From Bactrim] Allergy Severe Anaphylaxis Verified 04/06/20 11:38 Penicillins Allergy Intermediate Hives Verified 04/06/20 11:38 ciprofloxacin [CIPROFLOXACIN] Allergy Unknown Verified 04/06/20 11:38 Review of Systems Review of Systems ROS Unobtainable: All systems reviewed & are unremarkable except as noted in HPI and below Constitutional Constitutional: Denies chills, Denies fever(s), Denies lethargy and Denies weakness Eyes Eyes: Denies change in vision, Denies eye discharge, Denies irritation and Denies loss of vision Cardiovascular Cardiovascular: Denies chest pain, Denies irregular heart rhythm, Denies lightheadedness, Denies palpitations, Denies dyspnea, Denies dyspnea on exertion and Denies orthopnea Respiratory Respiratory: Denies cough, Denies dyspnea, Denies dyspnea on exertion and Denies wheezing Gastrointestinal Gastrointestinal: Denies abdominal pain, Denies change in bowel habits, Denies diarrhea, Denies nausea and Denies vomiting Integumentary/Breasts Skin/Breast: Reports as per HPI, Reports erythema and Reports wounds Neurologic Neurologic: Denies loss of vision and Denies weakness Endocrine Endocrine: Denies palpitations Allergic/Immunologic Allergic/Immunologic: Denies wheezing Patient History Medical History (Updated 04/07/20 @ 18:05 by Jessi Navas MD) Chickenpox (1963) Cystinuria Eczema Fractures (2014) Hyperlipemia (~07/2017) Hypertension Intractable right lower quadrant abdominal pain Kidney stones Mumps (1964) Rosacea Surgical History Hx of lithotripsy (~1985) Hx of surgical procedure Hx of tonsillectomy Status post kidney autotransplantation (1987) Family History Father Cancer Mother No problems noted. Social History marital status: household members: spouse occupational status: employed Smoking Status: Never smoker alcohol intake: never substance use type: does not use Smoking Status: Never smoker Substance Use Type: does not use Exam Initial Vital Signs Initial Vital Signs: Vital Signs Temperature 98.7 F 04/07/20 16:10 Pulse Rate 107 H 04/07/20 16:10 Respiratory Rate 18 04/07/20 16:10 Blood Pressure 151/72 H 04/07/20 16:10 Pulse Oximetry 95 04/07/20 16:10 GENERAL: Alert female appears normal and in no acute distress. HEENT: Head atraumatic,EOMI, pupils reactive, face symmetric, moist mucous membranes CARDIOVASCULAR: Regular rate and rhythm without murmurs, rubs or gallops. RESPIRATORY: Breath sounds equal bilaterally, no wheezes rales or rhonchi. ABDOMEN: Soft, nontender. Normoactive bowel sounds all 4 quadrants. No guarding or rebound. Incision noted open gross EXTREMITIES: Normal range of motion, no clubbing or edema. Neurovascularly intact NEUROLOGICAL: Alert and oriented x4.Normal gait and speech. Cranial nerves II through XII grossly intact. SKIN: Warm, dry, no laceration, no petechiae, no rashes or lesions. Course Orders Ordered: Acetaminophen (Acetaminophen 325 Mg Tablet) 650 mg PO Q6HR PRN PRN Reason: Pain, Mild (1-3) Last Admin: 04/08/20 00:30 Dose: 650 mg Documented by: Atenolol (Atenolol 25 Mg Tablet) 25 mg PO BID [facility] Last Admin: 04/07/20 21:11 Dose: 25 mg Documented by: Diphenhydramine HCl (Diphenhydramine 50 Mg/Ml Vial) 25 mg IV Q6HR PRN PRN Reason: Itching Docusate Sodium (Docusate 100 Mg Capsule) 100 mg PO BID [facility] Last Admin: 04/07/20 21:12 Dose: 100 mg Documented by: Heparin Sodium (Porcine) (Heparin 5,000 Unit/Ml Vial) 5,000 unit SUBCUT BID [facility] Hydromorphone HCl (Hydromorphone 1 Mg Inj) 0.5 mg IV Q4HR PRN PRN Reason: Pain, Severe (7-10) Last Admin: 04/08/20 04:13 Dose: 0.5 mg Documented by: Meropenem 500 mg/ Sodium (Chloride) 100 mls @ 200 mls/hr IV Q12H [facility] Last Infusion: 04/07/20 18:15 Dose: 0 mls/hr Documented by: Admin: 04/07/20 17:30 Dose: 200 mls/hr Documented by: MMINOR Lactated Ringer's (Lactated Ringers) 1,000 mls @ 150 mls/hr IV CONT [facility] Last Admin: 04/07/20 18:15 Dose: 150 mls/hr Documented by: CGRESS Vancomycin HCl (Vancomycin) 1,000 mg in 200 mls @ 200 mls/hr IV Q12H [facility] Last Admin: 04/08/20 06:53 Dose: 200 mls/hr Documented by: Naloxone HCl (Naloxone 0.4 Mg/Ml Vial) 0.2 mg IV Q2MIN PRN PRN Reason: Opiate Reversal Epinephrine Pen 0.3 (Mg/0.3 Ml Auto.Injct) 0.3 each INJ Q10M PRN PRN Reason: anaphylaxis Ondansetron HCl (Ondansetron 4 Mg/2 Ml Inj) 4 mg IV Q4HR PRN PRN Reason: Nausea And Vomiting Oxycodone HCl (Oxycodone Ir 5 Mg Tablet) 5 mg PO Q6HR PRN PRN Reason: Pain, Moderate (4-6) Last Admin: 04/08/20 04:09 Dose: 5 mg Documented by: Sennosides (Sennosides 8.6 Mg Tablet) 17.2 mg PO DAILY [facility] Vancomycin HCl (Vancomycin Trough) 1 request [id number] Stop: 04/09/20 05:31 Discontinued Medications Bupivacaine HCl/Epinephrine Bitart (Bupivacaine 0.25% W/ Epi (Pf) 10 Ml Vial) 20 ml INJ NOW ONE Stop: 04/07/20 18:44 Last Admin: 04/07/20 18:44 Dose: 30 ml Documented by: CARLEE Fentanyl (Fentanyl 100 Mcg/2 Ml Inj) 0 mcg IV Q5M PRN PRN Reason: Pain, Moderate (4-6) Last Admin: 04/07/20 19:50 Dose: 50 mcg Documented by: Hydromorphone HCl (Hydromorphone 2 Mg Inj) 0 mg IV Q5M PRN PRN Reason: Pain, Severe (7-10) Last Admin: 04/07/20 20:14 Dose: 0.5 mg Documented by: Vancomycin HCl/Dextrose (Vancomycin) 1,500 mg in 300 mls @ 200 mls/hr IV NOW [facility] Stop: 04/07/20 21:00 Last Infusion: 04/07/20 18:50 Dose: 0 mls/hr Documented by: Admin: 04/07/20 17:22 Dose: 200 mls/hr Documented by: TRIXIE Lorazepam (Lorazepam 2 Mg/Ml Inj) 0.25 mg IV NOW PRN PRN Reason: Anxiety Last Admin: 04/07/20 19:59 Dose: 0.25 mg Documented by: Morphine Sulfate (Morphine 2 Mg/Ml Inj) 2 mg IV NOW ONE Stop: 04/07/20 16:26 Last Admin: 04/07/20 16:40 Dose: 2 mg Documented by: TRIXIE Ondansetron HCl (Ondansetron 4 Mg Odt) 4 mg PO Q8H PRN PRN Reason: nausea and vomiting Ondansetron HCl (Ondansetron 4 Mg Odt) 4 mg PO Q6H [facility] Last Admin: 04/07/20 21:46 Dose: Not Given Documented by: Ondansetron HCl (Ondansetron 4 Mg/2 Ml Inj) 4 mg IV NOW PRN PRN Reason: Nausea And Vomiting Oxycodone/Acetaminophen (Oxycodone/Acetaminophen 5/325 Tablet) 1 tab PO PACUNOW PRN PRN Reason: Mild or Moderate Pain Last Admin: 04/07/20 20:41 Dose: 1 tab Documented by: Vancomycin HCl (Vancomycin Per Pharmacy) 1 request MISC NOW ONE Stop: 04/07/20 17:14 Vital Signs Vital signs: Vital Signs - 8 hr 04/07/20 16:10 04/07/20 16:24 04/07/20 16:30 Temperature 98.7 F Pulse Rate 107 H 108 H 109 H Respiratory Rate 18 26 H Blood Pressure 151/72 H Pulse Oximetry 95 96 96 04/07/20 16:45 Temperature Pulse Rate 104 H Respiratory Rate 28 H Blood Pressure 113/70 Pulse Oximetry 95 MDM - Wound/Laceration Lab Data Attestation: I reviewed the patient's lab results. Result diagrams: 04/08/20 05:30 04/08/20 05:30 Labs: Lab Results 04/07/20 04/07/20 04/07/20 Range/Units 16:25 16:25 16:25 WBC 16.5 H (4.5-11.0) X10^3/uL RBC 4.58 (4.0-5.2) X10^6/uL Hgb 14.3 (12.0-16.0) g/dL Hct 42.3 (36-46) % MCV 92.4 (80-100) fL MCH 31.2 (26-34) PG MCHC 33.8 (30-36) % RDW 13.3 (11.6-14.8) % Plt Count 415 H (150-400) X10^3/uL Neut % (Auto) 69.2 (50-75) % Lymph % (Auto) 19.2 L (25-40) % [place] % (Auto) 8.0 (3-14) % Eos % (Auto) 3.2 (2-4) % Baso % (Auto) 0.4 (0-2) % Neut # (Auto) 88513 H (9452-4689) /uL Lymph # (Auto) 3200 (0970-3738) /uL [place] # (Auto) 1300 H (0-900) /uL Eos # (Auto) 500 H (0-450) /uL Baso # (Auto) 100 (0-100) /uL Sodium 138 (137-145) mmol/L Potassium 4.3 (3.4-5.1) mmol/L Chloride 100 (98-107) mmol/L Carbon Dioxide 32 (22-32) mmol/L BUN 27 H (7-17) mg/dL Creatinine 1.13 H (0.52-1.04) mg/dL Estimated GFR 48.6 L (>60) mL/min BUN/Creatinine Ratio 23.9 H (6-22) Glucose 113 H (80-110) mg/dL Lactate (0.7-2.1) mmol/L Calcium 9.6 (8.4-10.2) mg/dL Total Bilirubin 0.8 (0.2-1.3) mg/dL AST 32 (14-36) IU/L ALT 21 (<35) IU/L Alkaline Phosphatase 91 (38-126) U/L Total Protein 7.8 (6.3-8.2) g/dL Albumin 3.9 (3.5-5.0) g/dL Globulin 3.9 (1.7-4.1) g/dL Albumin/Globulin Ratio 1.0 (1.0-2.8) Procalcitonin < 0.05 (<0.5) ng/mL COVID-19 PCR (Negative) 04/07/20 04/07/20 Range/Units 16:27 17:06 WBC (4.5-11.0) X10^3/uL RBC (4.0-5.2) X10^6/uL Hgb (12.0-16.0) g/dL Hct (36-46) % MCV (80-100) fL MCH (26-34) PG MCHC (30-36) % RDW (11.6-14.8) % Plt Count (150-400) X10^3/uL Neut % (Auto) (50-75) % Lymph % (Auto) (25-40) % [place] % (Auto) (3-14) % Eos % (Auto) (2-4) % Baso % (Auto) (0-2) % Neut # (Auto) (1449-6484) /uL Lymph # (Auto) (2083-6199) /uL [place] # (Auto) (0-900) /uL Eos # (Auto) (0-450) /uL Baso # (Auto) (0-100) /uL Sodium (137-145) mmol/L Potassium (3.4-5.1) mmol/L Chloride (98-107) mmol/L Carbon Dioxide (22-32) mmol/L BUN (7-17) mg/dL Creatinine (0.52-1.04) mg/dL Estimated GFR (>60) mL/min BUN/Creatinine Ratio (6-22) Glucose (80-110) mg/dL Lactate 1.7 (0.7-2.1) mmol/L Calcium (8.4-10.2) mg/dL Total Bilirubin (0.2-1.3) mg/dL AST (14-36) IU/L ALT (<35) IU/L Alkaline Phosphatase (38-126) U/L Total Protein (6.3-8.2) g/dL Albumin (3.5-5.0) g/dL Globulin (1.7-4.1) g/dL Albumin/Globulin Ratio (1.0-2.8) Procalcitonin (<0.5) ng/mL COVID-19 PCR Negative (Negative) Imaging Data CT scan - abdomen/pelvis: Radiologist's Impression: PROCEDURE: CT ABDOMEN PELVIS W CON INDICATIONS: abcess incision TECHNIQUE: After the administration of intravenous contrast, 5 mm thick sections acquired from the diaphragm to the symphysis. 5 mm coronal and sagittal reformats were acquired. For radiation dose reduction, the following was used: automated exposure control, adjustment of mA and/or kV according to patient size. COMPARISON: [facility], CT, CT ANGIO CHEST PE PROTOCOL, 01/09/2020, 11:13. [facility], CT, CT ABDOMEN PELVIS W CON, 01/06/2020, 5:25. FINDINGS: Image quality: Excellent. ABDOMEN: Lung bases: 5 millimeter nodular density is noted in anterior aspect of right middle lobe near right lung base . This was also seen on previous CT angiogram of chest study and likely represent benign process. Heart size is normal. Solid organs: Liver is normal in size . There is hepatic steatosis. Gallbladder is within normal limits. Biliary system is non dilated. Pancreas enhances normally. Spleen is normal in size and enhancement. No adrenal nodules. Right pelvic transplant kidney is again noted with suggestion of a large staghorn calculus unchanged from prior study. No hydronephrosis is seen. Cortical thinning and small right renal cysts also noted. Left kidney show no renal stone or hydronephrosis. Left renal cyst is again seen, unchanged from previous study. Peritoneum and bowel: There is no evidence of bowel obstruction. Wall thickening involving distal pylorus and 1st through 3rd portion of duodenum is seen with adjacent fat stranding suggestive of gastroenteritis. No other area of abnormal bowel wall thickening is seen. Incisional hernia is seen in right anterior abdominal wall just lateral to the midline containing a short segment of bowel loops with mild fat stranding. No evidence of incarceration. No free fluid or free air. Nodes and vessels: No retroperitoneal or mesenteric adenopathy by size criteria. Aorta and inferior vena cava are normal in size. Miscellaneous: Right anterior abdominal wall defect as above. There is also skin thickening with underlying small area of fluid density measures 2 x 1.1 x 2.8 centimeters in size in anterior abdominal wall just superficial to the herniation sac and may represent postsurgical seroma. Appearance is not typical for abscess collection. Left anterior abdominal wall scarring is seen. PELVIS: Genitourinary: Bladder wall thickness is normal. Miscellaneous: No inguinal hernias or adenopathy. Bones: No suspicious bony lesions. No vertebral body compression fractures. Grade 1 anterolisthesis of L4 on L5 is noted. IMPRESSION: 1. Interval development of right anterior abdominal wall defect containing a short segment of small bowel loops without evidence of incarceration or strangulation. No bowel obstruction. No free fluid or free air. 2. Cellulitis and suggestion of small fluid collection in superficial abdominal wall just over the herniation sac as described above and likely represent small postsurgical seroma. Early developing abscess collection cannot be entirely excluded. 3. Wall thickening involving distal stomach and proximal to mid duodenum concerning for gastroduodenitis. 4. Stable appearance of left kidney and transplant right kidney. No hydronephrosis. 5. Stable 5 millimeters soft tissue density nodule in right middle lobe. Follow-up CT chest in 12 months can be done for evaluation if indicated. Dictated by: Lane Xie M.D. on 04/07/2020 at 17:[address] by: Lane Xie M.D. on 04/07/2020 at 17:45 [facility] Narrative Medical decision making narrative: Dr. Ferreira in the ED to see and evaluate patient. Awaiting CT and blood work but will likely go to or. CT confirms patient going to the OR wait onvantibiotics. Discharge Plan Departure Patient Disposition: Admitted As Inpatient Clinical Impression: Incisional abscess Admit Date/Time: 04/07/20 17:12 Admit Provider: Jessi Navas
[2020-04-07 16:56] LABS: Alanine Aminotransferase 21 IU/L (<35); Albumin 3.9 g/dL (3.5-5.0); Alkaline Phosphatase 91 U/L (38-126); Aspartate Aminotransferase 32 IU/L (14-36); BUN Creatinine Ratio 23.9 (6-22); Bilirubin Total 0.8 mg/dL (0.2-1.3); Blood Urea Nitrogen 27 mg/dL (7-17); Calcium 9.6 mg/dL (8.4-10.2); Carbon Dioxide 32 mmol/L (22-32); Chloride 100 mmol/L (98-107); Estimated Glomerular Filt Rate 48.6 mL/min (>60); Globulin 3.9 g/dL (1.7-4.1); Glucose 113 mg/dL (80-110); HEMOLYSIS 43 (0-50); Potassium 4.3 mmol/L (3.4-5.1); Sodium 138 mmol/L (137-145); Total Protein 7.8 g/dL (6.3-8.2)
[2020-04-07 16:58] LABS: Add Manual Diff / Slide Review NO; Basophils Absolute Auto 100 /uL (0-100); Basophils Percent Auto 0.4 % (0-2); Eosinophils Absolute Auto 500 /uL (0-450); Eosinophils Percent Auto 3.2 % (2-4); Hematocrit 42.3 % (36-46); Hemoglobin 14.3 g/dL (12.0-16.0); Lymphocytes Absolute Auto 3200 /uL (1100-4500); Lymphocytes Percent Auto 19.2 % (25-40); Mean Corpuscular HGB Conc 33.8 % (30-36); Mean Corpuscular Hemoglobin 31.2 PG (26-34); Mean Corpuscular Volume 92.4 fL (80-100); Monocytes Absolute Auto 1300 /uL (0-900); Neutrophils Absolute Auto 11400 /uL (1500-7000); Neutrophils Percent Auto 69.2 % (50-75); Platelet Count 415 X10^3/uL (150-400); Red Blood Cell Count 4.58 X10^6/uL (4.0-5.2); Red Cell Distribution Width 13.3 % (11.6-14.8); White Blood Cell Count 16.5 X10^3/uL (4.5-11.0)
[2020-04-07 16:58] LABS: Lactate (Lactic Acid) 1.7 mmol/L (0.7-2.1)
--- NOTE | 2020-04-07 17:08 | DI.CT.S_ITS ---
PROCEDURE: CT ABDOMEN PELVIS W CON INDICATIONS: abcess incision TECHNIQUE: After the administration of intravenous contrast, 5 mm thick sections acquired from the diaphragm to the symphysis. 5 mm coronal and sagittal reformats were acquired. For radiation dose reduction, the following was used: automated exposure control, adjustment of mA and/or kV according to patient size. COMPARISON: [facility], CT, CT ANGIO CHEST PE PROTOCOL, 01/09/2020, 11:13. [facility], CT, CT ABDOMEN PELVIS W CON, 01/06/2020, 5:25. FINDINGS: Image quality: Excellent. ABDOMEN: Lung bases: 5 millimeter nodular density is noted in anterior aspect of right middle lobe near right lung base . This was also seen on previous CT angiogram of chest study and likely represent benign process. Heart size is normal. Solid organs: Liver is normal in size . There is hepatic steatosis. Gallbladder is within normal limits. Biliary system is non dilated. Pancreas enhances normally. Spleen is normal in size and enhancement. No adrenal nodules. Right pelvic transplant kidney is again noted with suggestion of a large staghorn calculus unchanged from prior study. No hydronephrosis is seen. Cortical thinning and small right renal cysts also noted. Left kidney show no renal stone or hydronephrosis. Left renal cyst is again seen, unchanged from previous study. Peritoneum and bowel: There is no evidence of bowel obstruction. Wall thickening involving distal pylorus and 1st through 3rd portion of duodenum is seen with adjacent fat stranding suggestive of gastroenteritis. No other area of abnormal bowel wall thickening is seen. Incisional hernia is seen in right anterior abdominal wall just lateral to the midline containing a short segment of bowel loops with mild fat stranding. No evidence of incarceration. No free fluid or free air. Nodes and vessels: No retroperitoneal or mesenteric adenopathy by size criteria. Aorta and inferior vena cava are normal in size. Miscellaneous: Right anterior abdominal wall defect as above. There is also skin thickening with underlying small area of fluid density measures 2 x 1.1 x 2.8 centimeters in size in anterior abdominal wall just superficial to the herniation sac and may represent postsurgical seroma. Appearance is not typical for abscess collection. Left anterior abdominal wall scarring is seen. PELVIS: Genitourinary: Bladder wall thickness is normal. Miscellaneous: No inguinal hernias or adenopathy. Bones: No suspicious bony lesions. No vertebral body compression fractures. Grade 1 anterolisthesis of L4 on L5 is noted. IMPRESSION: 1. Interval development of right anterior abdominal wall defect containing a short segment of small bowel loops without evidence of incarceration or strangulation. No bowel obstruction. No free fluid or free air. 2. Cellulitis and suggestion of small fluid collection in superficial abdominal wall just over the herniation sac as described above and likely represent small postsurgical seroma. Early developing abscess collection cannot be entirely excluded. 3. Wall thickening involving distal stomach and proximal to mid duodenum concerning for gastroduodenitis. 4. Stable appearance of left kidney and transplant right kidney. No hydronephrosis. 5. Stable 5 millimeters soft tissue density nodule in right middle lobe. Follow-up CT chest in 12 months can be done for evaluation if indicated. Dictated by: Lane Xie M.D. on 04/07/2020 at 17:38 Approved by: Lane Xie M.D. on 04/07/2020 at 17:45
--- NOTE | 2020-04-07 17:14 | PC.NURSE ---
pt had an appendectomy approx 3 wks ago, today one of the incisions dehisced and a large amount of purulent drainage exploded out
[2020-04-07 17:16] LABS: Procalcitonin < 0.05 ng/mL (<0.5)
[2020-04-07] MEDS: VANCOMYCIN 1,500 MG/300 ML PIGGYBACK 200 MG IV (17:22)
[2020-04-07 17:27] LABS: COVID19 -Nasal RAPID Negative (Negative)
--- NOTE | 2020-04-07 17:27 | PM.HP.1 ---
History of Present Illness History of Present Illness Date Patient Seen: 04/07/20 Time Patient Seen: 17:27 Chief complaint: Ruptured Surgical Incision Narrative: This is a 64 y.o woman who was admitted in December for acute appendicitis. 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 At the time of her admission in December 2019 she was treated with IV antibiotics and surgery was delayed due to phlegmon of the appendix sitting on top of her autotransplanted kidney. She returned in February for interval appendectomy with Dr. Pérez. She had a difficult operation requiring laparotomy and extensive lysis of adhesions, an enterotomy, evacuation of abscess surrounding the appendix, and the appendectomy. She has been recovering at home for nearly a month now, and was seen in clinic yesterday. There was a red area of the incision which was noted, and the decision was to watch it. Today, the area ruptured open and pus began draining out at home. ROS: General malaise, subjective fever, denies dysuria, diaphoresis. Thirteen system review is otherwise negative other than as mentioned below and in HPI. PE: GENERAL: Alert, in mild distress, mildly diaphoretic, and flush. Appears stated age. Answers questions promptly and appropriately. Vital signs noted. HENT: Normocephalic, atraumatic. Hearing intact. EYES: Conjunctiva pink, sclera white, no periorbital swelling. CARDIOVASCULAR: Mild tachycardia at 104. Trace pedal edema. RESPIRATORY: Non-tachypneic, breathing comfortably on room air. GASTROINTESTINAL: Abdomen soft; rounded, midline incision with evidence of good healing, other than a 2 cm portion which is open and actively draining bloody purulent fluid; this areas focally tender to palpation; more fluid expressed by pressing on the abdomen GENITALURINARY: No flank tenderness. MUSCULOSKELETAL: Equal tone and mass bilaterally. SKIN: Face is flushed and diaphoretic. Midline incision is erythematous around the area of the open draining site on the incisional scar. Otherwise warm, dry, soft, appropriate color for ethnicity. No other lesions, rashes, or wounds. NEURO: Alert and Oriented X 3. No gross sensory deficits, or cognitive issues. PSYCH: Appropriate affect and mood. Patient History Medical History (Updated 04/07/20 @ 18:05 by Jessi Navas MD) Chickenpox (1963) Cystinuria Eczema Fractures (2014) Hyperlipemia (~07/2017) Hypertension Intractable right lower quadrant abdominal pain Kidney stones Mumps (1964) Rosacea Surgical History Hx of lithotripsy (~1985) Hx of surgical procedure Hx of tonsillectomy Status post kidney autotransplantation (1987) Family & Social History Family History Father Cancer Mother No problems noted. Social History: household members spouse Safety & Behavioral: Feels Safe in Current Yes Environment Been Physically Hurt or No Threatened By a Person Tobacco & Substance use: Smoking Status Never smoker alcohol intake never Substance Use Type does not use Meds Home Medications and Allergies Home Medications Medication Instructions Recorded Confirmed Type hydrocodone 10 mg-acetaminophen 1 tab PO QID PRN 07/22/18 04/06/20 History 325 mg tablet epinephrine 0.3 mg/0.3 mL 0.3 mg IM Q10M PRN #1 each 10/26/18 04/06/20 Rx injection, auto-injector atenolol 25 mg PO BID #60 tab 01/10/20 04/06/20 Rx docusate sodium [DOK] 100 mg PO BID #30 cap 01/10/20 04/06/20 Rx ondansetron HCl [Zofran] 4 mg PO Q8H PRN #10 tab NS 03/16/20 04/06/20 Rx ondansetron HCl 4 mg tablet 4 mg PO Q6H #30 tab 03/20/20 04/06/20 Rx Allergies Allergy/AdvReac Type Severity Reaction Status Date / Time sulfamethoxazole Allergy Severe Anaphylaxis Verified 04/06/20 11:38 [From Bactrim] trimethoprim [From Bactrim] Allergy Severe Anaphylaxis Verified 04/06/20 11:38 Penicillins Allergy Intermediate Hives Verified 04/06/20 11:38 ciprofloxacin [CIPROFLOXACIN] Allergy Unknown Verified 04/06/20 11:38 Exam Vital Signs (past 8 hours): - 04/07/20 16:10 04/07/20 16:24 04/07/20 16:30 Temperature 98.7 F Pulse Rate 107 H 108 H 109 H Respiratory Rate 18 26 H Blood Pressure 151/72 H Pulse Oximetry 95 96 96 04/07/20 16:45 Temperature Pulse Rate 104 H Respiratory Rate 28 H Blood Pressure 113/70 Pulse Oximetry 95 Oxygen Delivery Method Room Air Objective Imaging CT scan - abdomen: My impression: Fascial dehiscence Radiologist's impression: [facility] [place] [id number] Scan ReportSigned Patient: Cici Glaser LMR#: [id number]: [id number]:[id number]/Sex: 64 / FDate of Service: 04/07/20Loc: [id number] Number: [id number] Procedure: CT abdomen pelvis w con Ordering Provider: Adeline Wolf D.O. PROCEDURE: CT ABDOMEN PELVIS W CON INDICATIONS: abcess incision TECHNIQUE: After the administration of intravenous contrast, 5 mm thick sections acquired from the diaphragm to the symphysis. 5 mm coronal and sagittal reformats were acquired. For radiation dose reduction, the following was used: automated exposure control, adjustment of mA and/or kV according to patient size. COMPARISON: [facility], CT, CT ANGIO CHEST PE PROTOCOL, 01/09/2020, 11:13. [facility], CT, CT ABDOMEN PELVIS W CON, 01/06/2020, 5:25. FINDINGS: Image quality: Excellent. ABDOMEN: Lung bases: 5 millimeter nodular density is noted in anterior aspect of right middle lobe near right lung base . This was also seen on previous CT angiogram of chest study and likely represent benign process. Heart size is normal. Solid organs: Liver is normal in size . There is hepatic steatosis. Gallbladder is within normal limits. Biliary system is non dilated. Pancreas enhances normally. Spleen is normal in size and enhancement. No adrenal nodules. Right pelvic transplant kidney is again noted with suggestion of a large staghorn calculus unchanged from prior study. No hydronephrosis is seen. Cortical thinning and small right renal cysts also noted. Left kidney show no renal stone or hydronephrosis. Left renal cyst is again seen, unchanged from previous study. Peritoneum and bowel: There is no evidence of bowel obstruction. Wall thickening involving distal pylorus and 1st through 3rd portion of duodenum is seen with adjacent fat stranding suggestive of gastroenteritis. No other area of abnormal bowel wall thickening is seen. Incisional hernia is seen in right anterior abdominal wall just lateral to the midline containing a short segment of bowel loops with mild fat stranding. No evidence of incarceration. No free fluid or free air. Nodes and vessels: No retroperitoneal or mesenteric adenopathy by size criteria. Aorta and inferior vena cava are normal in size. Miscellaneous: Right anterior abdominal wall defect as above. There is also skin thickening with underlying small area of fluid density measures 2 x 1.1 x 2.8 centimeters in size in anterior abdominal wall just superficial to the herniation sac and may represent postsurgical seroma. Appearance is not typical for abscess collection. Left anterior abdominal wall scarring is seen. PELVIS: Genitourinary: Bladder wall thickness is normal. Miscellaneous: No inguinal hernias or adenopathy. Bones: No suspicious bony lesions. No vertebral body compression fractures. Grade 1 anterolisthesis of L4 on L5 is noted. IMPRESSION: 1. Interval development of right anterior abdominal wall defect containing a short segment of small bowel loops without evidence of incarceration or strangulation. No bowel obstruction. No free fluid or free air. 2. Cellulitis and suggestion of small fluid collection in superficial abdominal wall just over the herniation sac as described above and likely represent small postsurgical seroma. Early developing abscess collection cannot be entirely excluded. 3. Wall thickening involving distal stomach and proximal to mid duodenum concerning for gastroduodenitis. 4. Stable appearance of left kidney and transplant right kidney. No hydronephrosis. 5. Stable 5 millimeters soft tissue density nodule in right middle lobe. Follow-up CT chest in 12 months can be done for evaluation if indicated. Dictated by: Lane Xie M.D. on 04/07/2020 at 17:38 Approved by: Lane Xie M.D. on 04/07/2020 at 17:45 Labs Result Diagrams: 04/07/20 16:25 04/07/20 16:25 Labs: Laboratory Results - last 24 hr 04/07/20 04/07/20 04/07/20 16:25 16:25 16:25 WBC 16.5 H RBC 4.58 Hgb 14.3 Hct 42.3 MCV 92.4 MCH 31.2 MCHC 33.8 RDW 13.3 Plt Count 415 H Neut % (Auto) 69.2 Lymph % (Auto) 19.2 L [place] % (Auto) 8.0 Eos % (Auto) 3.2 Baso % (Auto) 0.4 Neut # (Auto) 36903 H Lymph # (Auto) 3200 [place] # (Auto) 1300 H Eos # (Auto) 500 H Baso # (Auto) 100 Sodium 138 Potassium 4.3 Chloride 100 Carbon Dioxide 32 BUN 27 H Creatinine 1.13 H Estimated GFR 48.6 L BUN/Creatinine Ratio 23.9 H Glucose 113 H Lactate Calcium 9.6 Total Bilirubin 0.8 AST 32 ALT 21 Alkaline Phosphatase 91 Total Protein 7.8 Albumin 3.9 Globulin 3.9 Albumin/Globulin Ratio 1.0 Procalcitonin < 0.05 COVID-19 PCR 04/07/20 04/07/20 16:27 17:06 WBC RBC Hgb Hct MCV MCH MCHC RDW Plt Count Neut % (Auto) Lymph % (Auto) [place] % (Auto) Eos % (Auto) Baso % (Auto) Neut # (Auto) Lymph # (Auto) [place] # (Auto) Eos # (Auto) Baso # (Auto) Sodium Potassium Chloride Carbon Dioxide BUN Creatinine Estimated GFR BUN/Creatinine Ratio Glucose Lactate 1.7 Calcium Total Bilirubin AST ALT Alkaline Phosphatase Total Protein Albumin Globulin Albumin/Globulin Ratio Procalcitonin COVID-19 PCR Negative Assessment & Plan Assessment and plan (1) Incisional abscess: Status: Acute (2) Dehiscence of fascia: Status: Acute (3) Obesity: Status: Acute (4) History of laparotomy: Status: Acute (5) History of kidney surgery: Status: Acute (6) Hypertension: Status: Chronic (7) Cystinuria: Status: Chronic (8) History of appendicitis: Status: Acute Assessment & Plan narrative: This is a 64-year-old woman who is about 3 weeks out from a laparotomy for an interval appendectomy. Today she came into the ER with erythematous skin surrounding her incision, and purulent drainage coming out from the skin incision. The blood cell count was 16. CT scan revealed a fascial dehiscence. Antibiotics were started. COVID test was negative. Risks and benefits of laparotomy, possible bowel resection, washout, fascial closure were discussed with the patient her who desired to proceed with urgent surgery. Risk of bleeding, infection, damage to nearby structures, need for additional procedures, hernia, recurrence, need for bowel resection, bowel obstruction, were discussed. The patient desires to proceed. Plan: NPO, IV fluids, IV antibiotics, proceed to OR for urgent laparotomy COVID-19 COVID-19 status: Negative Result date/Date tested (Pos, Neg/Pending): 04/07/20 Time Spent With Patient Time with patient: 15-24 minutes Quality VTE Deep Vein Thrombosis/Pulmonary Embolism Present on Admission: No
[2020-04-07] MEDS: MEROPENEM 500 MG in SODIUM CHLORIDE 0.9% 100 ML 200 ML IV (17:30)
[2020-04-07] MEDS: LACTATED RINGERS 1,000 ML 150 ML IV ×2 (18:15→21:14)
[2020-04-07] MEDS: BUPIVACAINE 0.25% W/ EPI (PF) 10 ML VIAL 20 ML INJ (18:44)
--- NOTE | 2020-04-07 18:45 | SUR.OPER ---
Supine on padded OR bed, head on pillow, arms secured on padded arm boards at <90 degrees abduction, legs uncrossed, safety belt at thigh, tape over blanket over lower legs.
--- NOTE | 2020-04-07 19:38 | P.OP_ITS ---
Operative Date/Time/Diagnoses Date of procedure: 04/07/20 Time of procedure: 19:38 Pre-op diagnosis: Abdominal wall abscess, fascial dehiscence Post-op diagnosis: same Procedure & Clinicians Procedure: Laparotomy, washout, closure of skin and subcutaneous fat over bowel. Same procedure as scheduled: Yes Indications: This is a 64-year-old man who is 3 weeks out from a laparotomy for a complicated interval appendectomy. She came into the ER today with purulent fluid draining out of her abdominal wall, and a CT scan which indicated a fasc ial dehiscence. Surgeon: Jessi Navas Click Yes if Unassisted: Yes Anesthesia Type: General Operative Notes Findings: Fascial dehiscence with densely adherent bowel to the abdominal wall, fat necrosis with abdominal wall abscess. Specimen(s): none sent Applied: drain(s) (Nineteen round Gerald drain) Estimated Blood Loss (mL): 25 Procedure in detail: The patient was brought to the operating room, placed supine on the operating table, and sequential compression devices were placed on both legs and turned on. Appropriate perioperative antibiotics were given. General anesthesia was induced by the anesthesiologist and the patient was intubated with an LMA. Hancock catheter was placed and the bladder in sterile fashion. The abdomen was then prepped and draped in sterile fashion, and a surgical time-out was conducted. The midline incision was then opened using a 10 blade for about 10 cm above and below the point where it had been draining out parallel fluid. Dissection was carried down carefully through the subcutaneous fat, until the bowel was reached. Two loops of small bowel were seen densely adherent to the fascia, and not dilated or obstructed appearing they appeared viable, and not ischemic. No serosal injuries were sustained in this process. I dissected around the bowel as much as I could safely, but they were very densely adherent, and it became apparent that because of their adherence, the loops of bowel were not at risk for evisceration, and they were at risk for serosal injury if I continued dissecting further. At this point I suctioned out any remaining necrotic fat tissue, and I dissected circumferentially through the subcutaneous fat of the abdominal wall and created a layer to close over top of the bowel. I then closed this layer over the bowel using 3-0 Vicryl suture. The layer was just fat tissue with some scar tissue within it, and so was very difficult to get it to hold a suture, but we were able to reapproximate a layer over top of the bowel to cover it. I then placed a 19 round Gerald drain in the space overlying that later, and it exited the skin on the left side of the incision. I sutured this to the skin with 2-0 nylon. I then injected the subcutaneous fat and the skin with 0.25% Marcaine with epinephrine. I used 25 mL. I then closed the remaining subcutaneous fat and dermis with interrupted 0 Vicryl [id number] sutures. I then closed the skin with 2 nylon mattress sutures. We then dressed the wound with Xeroform gauze over the sutures, and 4x4s over top of the Xeroform gauze and around the drain site. This was secured with Medipore tape. The patient was awakened from anesthesia and extubated. She was transferred onto [facility]. The patient was then transferred to the postanesthesia care unit in stable condition. He tolerated the procedure well. Needle sponge and instrument counts were correct x2 at the end of the case. Complications: none Post-operative Condition: stable Disposition: PACU
[2020-04-07] MEDS: fentaNYL 100 MCG/2 ML INJ IV ×2 (19:46→19:50)
[2020-04-07] MEDS: OXYCODONE/ACETAMINOPHEN 5/325 TABLET 1 TAB PO ×2 (19:56→20:41)
[2020-04-07] MEDS: LORazepam 2 MG/ML INJ 0.25 MG IV (19:59)
[2020-04-07] MEDS: HYDROMORPHONE 2 MG INJ IV ×4 (20:04→20:14)
[2020-04-07] MEDS: atenoloL 25 MG TABLET PO (21:11)
[2020-04-07] MEDS: DOCUSATE 100 MG CAPSULE PO (21:12)
[2020-04-07] MEDS: OXYCODONE IR 5 MG TABLET PO (22:33)
[2020-04-08] VITALS (8 sets, daily range): BP systolic 130–148; BP diastolic 69–80; PULSE 70–88; RESP 15–18; TEMP 36.2–37.2; O2SAT 94–100
[2020-04-08] MEDS: ACETAMINOPHEN 325 MG TABLET 650 MG PO ×2 (00:30→09:05)
[2020-04-08] MEDS: HYDROMORPHONE 1 MG INJ 0.5 MG IV ×3 (00:31→09:09)
[2020-04-08] MEDS: OXYCODONE IR 5 MG TABLET PO (04:09)
[2020-04-08] MEDS: LACTATED RINGERS 1,000 ML 150 ML IV (05:33)
[2020-04-08 05:48] LABS: Add Manual Diff / Slide Review NO; Basophils Absolute Auto 0 /uL (0-100); Basophils Percent Auto 0.3 % (0-2); Eosinophils Absolute Auto 0 /uL (0-450); Eosinophils Percent Auto 0.1 % (2-4); Hematocrit 39.1 % (36-46); Hemoglobin 12.9 g/dL (12.0-16.0); Lymphocytes Absolute Auto 800 /uL (1100-4500); Lymphocytes Percent Auto 7.6 % (25-40); Mean Corpuscular HGB Conc 33.1 % (30-36); Mean Corpuscular Hemoglobin 30.7 PG (26-34); Mean Corpuscular Volume 92.9 fL (80-100); Monocytes Absolute Auto 200 /uL (0-900); Monocytes Percent Auto 1.5 % (3-14); Neutrophils Absolute Auto 10000 /uL (1500-7000); Neutrophils Percent Auto 90.5 % (50-75); Platelet Count 307 X10^3/uL (150-400); Red Blood Cell Count 4.21 X10^6/uL (4.0-5.2); Red Cell Distribution Width 12.9 % (11.6-14.8)
[2020-04-08] MEDS: MEROPENEM 500 MG in SODIUM CHLORIDE 0.9% 100 ML 200 ML IV (06:06)
[2020-04-08 06:10] LABS: BUN Creatinine Ratio 22.3 (6-22); Blood Urea Nitrogen 23 mg/dL (7-17); Calcium 9.2 mg/dL (8.4-10.2); Carbon Dioxide 30 mmol/L (22-32); Chloride 100 mmol/L (98-107); Estimated Glomerular Filt Rate 54.1 mL/min (>60); Glucose 140 mg/dL (80-110); HEMOLYSIS < 15 (0-50); Phosphorous 4.9 mg/dL (2.8-4.1); Potassium 5.2 mmol/L (3.4-5.1); Sodium 134 mmol/L (137-145)
[2020-04-08 06:21] LABS: Procalcitonin < 0.05 ng/mL (<0.5)
[2020-04-08] MEDS: VANCOMYCIN 1,000 MG/200 ML PIGGYBACK 200 MG IV (06:53)
[2020-04-08] MEDS: atenoloL 25 MG TABLET PO (09:06)
[2020-04-08] MEDS: SENNOSIDES 8.6 MG TABLET 17.2 MG PO (09:06)
[2020-04-08] MEDS: DOCUSATE 100 MG CAPSULE PO (09:09)
[2020-04-08] MEDS: HEPARIN 5,000 UNIT/ML VIAL 5000 UNIT SUBCUT (09:09)
[2020-04-08] MEDS: SODIUM CHLORIDE 0.9% 1,000 ML 100 ML IV (09:10)
--- NOTE | 2020-04-08 10:19 | CM.DANOTE ---
DCP: Case received, EMR reviewed and met with patient. Introduced self and role. Was able to obtain information regarding her baseline activity status, health history, as well as current living situation. DCP assessment completed with information currently available. Patient is a 64 year old female who admitted yesterday afternoon to the care of the hospitalist team. PCP: Dr. Ji. Payer: confirmed: [facility]. Patient came to the hospital via ambulance secondary to having discharge and warmth from a surgical wound. She had been here in February, for an appendectomy, and in December, as well. Patient was diagnosed with an incisional abscess, and she had a surgical procedure /washout yesterday. Patient has been on a liquid diet since her last hospital admission, according to patient. Met with patient and , [place], in her room. She is alert and oriented. She indicated, she had been doing pretty well since she was here from her last surgery, the wound had been ok. Her and her indicated, she felt a gush of fluid from the incisional site, and the area was warm, so they called 911. Patient has not been recently driving. At baseline, she indicated that she does not use any DME devices. Her assists her at home if needed. Patient is hopeful to go home after surgery on oral antibiotics. P: DCP to continue to follow for any needs and be available for any resources needed. Amelia Thapa RN/Pattern Finisher
--- NOTE | 2020-04-08 11:25 | P.PN_ITS ---
Subjective Subjective Date Patient Seen: 04/08/20 Time Patient Seen: 11:25 Interval history: No acute events overnight. Pt feeling much better. Passing gas but no stool. Tolerating clears. Pain was not entirely well controlled, and we have increased her pain medicine. Exam Vital Signs (past 8 hours): - 04/08/20 06:00 04/08/20 09:30 Temperature 97.2 F L 97.6 F Pulse Rate 71 70 Respiratory Rate 16 16 Blood Pressure 144/80 H 138/74 Pulse Oximetry 96 99 Oxygen Delivery Method Room Air Oxygen Flow Rate 0 Narrative Exam Narrative: GENERAL: Alert, oriented, comfortable. Looking much better than last evening prior to surgery. Appears stated age. Answers questions promptly and appropriately. Vital signs noted. HENT: Normocephalic, atraumatic. Hearing intact. EYES: Conjunctiva pink, sclera white, no periorbital swelling. CARDIOVASCULAR: Regular rate. No pedal edema. RESPIRATORY: Non-tachypneic, breathing comfortably on room air. GASTROINTESTINAL: Abdomen soft, rounded, incision is clean dry and intact without erythema. ENE drain output is serosanguineous GENITALURINARY: No flank tenderness. MUSCULOSKELETAL: Equal tone and mass bilaterally. SKIN: Warm, dry, soft, appropriate color for ethnicity. No other lesions, rashes, or wounds. NEURO: Alert and Oriented X 3. No gross sensory deficits, or cognitive issues. PSYCH: Appropriate affect and mood. Objective Labs Result Diagrams: 04/08/20 05:30 04/08/20 05:30 Labs: Laboratory Results - last 24 hr 04/07/20 04/07/20 04/07/20 16:25 16:25 16:25 WBC 16.5 H RBC 4.58 Hgb 14.3 Hct 42.3 MCV 92.4 MCH 31.2 MCHC 33.8 RDW 13.3 Plt Count 415 H Neut % (Auto) 69.2 Lymph % (Auto) 19.2 L [place] % (Auto) 8.0 Eos % (Auto) 3.2 Baso % (Auto) 0.4 Neut # (Auto) 50632 H Lymph # (Auto) 3200 [place] # (Auto) 1300 H Eos # (Auto) 500 H Baso # (Auto) 100 Sodium 138 Potassium 4.3 Chloride 100 Carbon Dioxide 32 BUN 27 H Creatinine 1.13 H Estimated GFR 48.6 L BUN/Creatinine Ratio 23.9 H Glucose 113 H Lactate Calcium 9.6 Phosphorus Magnesium Total Bilirubin 0.8 AST 32 ALT 21 Alkaline Phosphatase 91 Total Protein 7.8 Albumin 3.9 Globulin 3.9 Albumin/Globulin Ratio 1.0 Procalcitonin < 0.05 COVID-19 PCR 04/07/20 04/07/20 04/08/20 16:27 17:06 05:30 WBC 11.0 RBC 4.21 Hgb 12.9 Hct 39.1 MCV 92.9 MCH 30.7 MCHC 33.1 RDW 12.9 Plt Count 307 Neut % (Auto) 90.5 H D Lymph % (Auto) 7.6 L [place] % (Auto) 1.5 L Eos % (Auto) 0.1 L Baso % (Auto) 0.3 Neut # (Auto) 84166 H Lymph # (Auto) 800 L [place] # (Auto) 200 Eos # (Auto) 0 Baso # (Auto) 0 Sodium Potassium Chloride Carbon Dioxide BUN Creatinine Estimated GFR BUN/Creatinine Ratio Glucose Lactate 1.7 Calcium Phosphorus Magnesium Total Bilirubin AST ALT Alkaline Phosphatase Total Protein Albumin Globulin Albumin/Globulin Ratio Procalcitonin COVID-19 PCR Negative 04/08/20 04/08/20 05:30 05:30 WBC RBC Hgb Hct MCV MCH MCHC RDW Plt Count Neut % (Auto) Lymph % (Auto) [place] % (Auto) Eos % (Auto) Baso % (Auto) Neut # (Auto) Lymph # (Auto) [place] # (Auto) Eos # (Auto) Baso # (Auto) Sodium 134 L Potassium 5.2 H Chloride 100 Carbon Dioxide 30 BUN 23 H Creatinine 1.03 Estimated GFR 54.1 L BUN/Creatinine Ratio 22.3 H Glucose 140 H Lactate Calcium 9.2 Phosphorus 4.9 H Magnesium 2.0 Total Bilirubin AST ALT Alkaline Phosphatase Total Protein Albumin Globulin Albumin/Globulin Ratio Procalcitonin < 0.05 COVID-19 PCR [facility] Medical History (Updated 04/08/20 @ 11:36 by Jessi Navas MD) Chickenpox (1963) Cystinuria Eczema Fractures (2014) Hyperlipemia (~07/2017) Hypertension Intractable right lower quadrant abdominal pain Kidney stones Mumps (1964) Rosacea Surgical History Hx of lithotripsy (~1985) Hx of surgical procedure Hx of tonsillectomy Status post kidney autotransplantation (1987) Family History Father Cancer Mother No problems noted. Social History marital status: household members: spouse occupational status: employed Smoking Status: Never smoker alcohol intake: never substance use type: does not use Assessment & Plan Assessment and plan (1) Incisional abscess: Status: Acute (2) Dehiscence of fascia: Status: Acute (3) Obesity: Status: Acute (4) History of laparotomy: Status: Acute (5) History of kidney surgery: Status: Acute (6) Hypertension: Status: Chronic (7) Cystinuria: Status: Chronic (8) History of appendicitis: Status: Acute (9) LU (acute kidney injury): Problem details: Evidenced by elevated creatinine last evening, and elevated potassium and phosphorus this morning, likely secondary to infection, dehydration, and Vancomycin. I stopped the antibiotic, and her creatinine has returned to normal with IV fluid hydration. Septic parameters are looking much better, and I think her kidneys are starting to turn around. We will recheck electrolytes this afternoon and closely monitor. Status: Acute Assessment & Plan narrative: This is a 64-year-old woman who is about 3 weeks out from a laparotomy for an interval appendectomy. Last night she came into the ER with erythematous skin surrounding her incision, and purulent drainage coming out from the skin incision. The white blood cell count was 16. CT scan revealed a fascial dehiscence. Antibiotics were started. She was taken to the OR for wound exploration, and washout as well as closure of the abdominal wall over the exposed bowel, and drain placement. She is doing much better this morning, and I have stopped her antibiotics because her cellulitis is gone, her white count is normal, and the drain is there to drain any purulent collection that may develop, so by definition it is not infected at this point. I am concerned about her kidneys given that she has significant history there with the renal cysts and prior kidney operations. Her creatinine has come down to normal, but both her potassium and phosphorus were elevated this morning, which is likely secondary to some LU. So I have stopped her antibiotics, and we will liberalize her diet as tolerated, will recheck her electrolytes this afternoon, and will closely watch her abdominal exam, and white blood cell count for any signs of infectious resurgence. Plan: Advance diet as tolerated Hold antibiotics for now Repeat labs this afternoon Watch abdominal exam in drain output as well as CBC and vitals for any signs of sepsis Ambulate Wear abdominal binder 11/11 Dispo planning pending she is not getting septic, and her bowel function returns to normal COVID-19 COVID-19 status: Negative Result date/Date tested (Pos, Neg/Pending): 04/07/20 Time Spent With Patient Time with patient: 25 - 35 minutes Quality VTE Deep Vein Thrombosis/Pulmonary Embolism Present on Admission: No
[2020-04-08] MEDS: OXYCODONE IR 10 MG TABLET PO (11:30)
[2020-04-08 15:01] LABS: Blood Urea Nitrogen 22 mg/dL (7-17); Calcium 9.1 mg/dL (8.4-10.2); Carbon Dioxide 28 mmol/L (22-32); Chloride 100 mmol/L (98-107); Estimated Glomerular Filt Rate 52.9 mL/min (>60); Glucose 106 mg/dL (80-110); HEMOLYSIS < 15 (0-50); Potassium 4.4 mmol/L (3.4-5.1); Sodium 134 mmol/L (137-145)
[2020-04-08] MEDS: ONDANSETRON 4 MG/2 ML INJ IV (17:54)
[2020-04-09 00:49] VITALS: BP 166/79; PULSE 96; RESP 18; TEMP 37.6; O2SAT 96
[2020-04-09] MEDS: atenoloL 25 MG TABLET PO ×2 (00:52→08:30)
[2020-04-09] MEDS: ONDANSETRON 4 MG/2 ML INJ IV ×3 (01:44→10:57)
--- NOTE | 2020-04-09 02:12 | PC.NURSE ---
0130 Pt vomited 200cc green/brown.
[2020-04-09 03:56] VITALS: RESP 18; TEMP 36.2
[2020-04-09] MEDS: HYDROMORPHONE 0.5 MG INJ IV (05:15)
[2020-04-09] MEDS: OXYCODONE IR 10 MG TABLET PO ×2 (05:18→09:15)
[2020-04-09 05:28] VITALS: BP 167/91; PULSE 78; RESP 16; TEMP 36.8; O2SAT 98
[2020-04-09 05:42] LABS: Add Manual Diff / Slide Review NO; Basophils Absolute Auto 100 /uL (0-100); Basophils Percent Auto 0.6 % (0-2); Eosinophils Absolute Auto 100 /uL (0-450); Hematocrit 36.5 % (36-46); Hemoglobin 12.1 g/dL (12.0-16.0); Lymphocytes Absolute Auto 1600 /uL (1100-4500); Lymphocytes Percent Auto 14.4 % (25-40); Mean Corpuscular HGB Conc 33.2 % (30-36); Mean Corpuscular Hemoglobin 30.5 PG (26-34); Mean Corpuscular Volume 91.9 fL (80-100); Monocytes Absolute Auto 800 /uL (0-900); Monocytes Percent Auto 7.4 % (3-14); Neutrophils Absolute Auto 8700 /uL (1500-7000); Neutrophils Percent Auto 76.6 % (50-75); Platelet Count 305 X10^3/uL (150-400); Red Blood Cell Count 3.98 X10^6/uL (4.0-5.2); Red Cell Distribution Width 13.2 % (11.6-14.8); White Blood Cell Count 11.4 X10^3/uL (4.5-11.0)
[2020-04-09 05:53] LABS: BUN Creatinine Ratio 18.3 (6-22); Blood Urea Nitrogen 19 mg/dL (7-17); Calcium 8.9 mg/dL (8.4-10.2); Carbon Dioxide 32 mmol/L (22-32); Chloride 102 mmol/L (98-107); Estimated Glomerular Filt Rate 53.5 mL/min (>60); Glucose 103 mg/dL (80-110); HEMOLYSIS < 15 (0-50); Magnesium 1.8 mg/dL (1.6-2.3); Phosphorous 3.3 mg/dL (2.8-4.1); Potassium 4.4 mmol/L (3.4-5.1); Sodium 136 mmol/L (137-145)
--- NOTE | 2020-04-09 07:35 | DI.RAD.S_ITS ---
PROCEDURE: XR KUB INDICATIONS: vomiting TECHNIQUE: One view of the abdomen acquired. COMPARISON: [facility], CT, CT ABDOMEN PELVIS W CON, 04/07/2020, 17:09. FINDINGS: Surgical changes and devices: Surgical drain projecting over the right lower abdomen. Multiple clips in the right abdomen/pelvis. Bowel: Paucity of small bowel gas limits evaluation for obstruction. Colonic gas is within normal limits. Stomach is not distended. Soft tissues: No suspicious abdominal calcifications. Visualized solid organ contours appear normal in size. Bones: No suspicious bony lesions. IMPRESSION: Paucity of small bowel gas limits evaluation for small bowel obstruction. Stomach is not distended. Dictated by: Orlin Acuña M.D. on 04/09/2020 at 7:31 Approved by: Orlin Acuña M.D. on 04/09/2020 at 7:34
[2020-04-09 07:36] VITALS: PULSE 81; RESP 16; O2SAT 97
[2020-04-09 08:14] LABS: Procalcitonin < 0.05 ng/mL (<0.5)
[2020-04-09 08:20] VITALS: BP 95/64; PULSE 77; RESP 18; TEMP 36.6; O2SAT 98
--- NOTE | 2020-04-09 10:32 | P.DS_ITS ---
History of Present Illness History of Present Illness Chief complaint: Ruptured Surgical Incision Narrative: This is a 64 y.o woman who was admitted in December for acute appendicitis. 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 At the time of her admission in December 2019 she was treated with IV antibiotics and surgery was delayed due to phlegmon of the appendix sitting on top of her autotransplanted kidney. She returned in February for interval appendectomy with Dr. Pérez. She had a difficult operation requiring laparotomy and extensive lysis of adhesions, an enterotomy, evacuation of abscess surrounding the appendix, and the appendectomy. She has been recovering at home for nearly a month now, and was seen in clinic yesterday. There was a red area of the incision which was noted, and the decision was to watch it. Today, the area ruptured open and pus began draining out at home. ROS: General malaise, subjective fever, denies dysuria, diaphoresis. Thirteen system review is otherwise negative other than as mentioned below and in HPI. PE: GENERAL: Alert, in mild distress, mildly diaphoretic, and flush. Appears stated age. Answers questions promptly and appropriately. Vital signs noted. HENT: Normocephalic, atraumatic. Hearing intact. EYES: Conjunctiva pink, sclera white, no periorbital swelling. CARDIOVASCULAR: Mild tachycardia at 104. Trace pedal edema. RESPIRATORY: Non-tachypneic, breathing comfortably on room air. GASTROINTESTINAL: Abdomen soft; rounded, midline incision with evidence of good healing, other than a 2 cm portion which is open and actively draining bloody purulent fluid; this areas focally tender to palpation; more fluid expressed by pressing on the abdomen GENITALURINARY: No flank tenderness. MUSCULOSKELETAL: Equal tone and mass bilaterally. SKIN: Face is flushed and diaphoretic. Midline incision is erythematous around the area of the open draining site on the incisional scar. Otherwise warm, dry, soft, appropriate color for ethnicity. No other lesions, rashes, or wounds. NEURO: Alert and Oriented X 3. No gross sensory deficits, or cognitive issues. PSYCH: Appropriate affect and mood. Discharge Providers Provider Date of admission: 04/07/20 17:12 Discharge Date: 04/09/20 Primary care physician: Syed Ji DO Consults: 04/07/20 17:24 Consult to Discharge Planning Routine Comment: 04/07/20 21:00 Consult to Discharge Planning Routine Comment: 04/07/20 21:27 Consult to Dietitian, Adult Routine Comment: Reason For Exam: greater than 6 lb weight loss. Has been on liquids Discharge provider: Jessi Navas MD Summary Hospital Course Discharge Diagnosis: Abdominal wall abscess, fascial dehiscence Hospital Course: Pt was seen in ER and found to have purulent fluid draining from the abdomen and CT scan concerning for fascial dehiscence. Her labs were consistent with LU and sepsis. Pt was taken to the OR for washout of abdominal wall abscess and closure of abdominal wall over bowel, as well as drain placement and skin closure. She was transferred to the floor. Her labs, vit als, and clinical exam improved over post op day 1 to post op day 2. On Post op day 2 she was tolerating a diet, passing gas, and pain was well controlled. Status at Discharge Cognitive/behavioral status at discharge: at baseline, oriented Functional status at discharge: independent ambulation Overall status at discharge: patient is progressing back to baseline Time Spent with Patient Time spent: Greater than 30 minutes Exam Vital Signs (past 8 hours): - 04/09/20 03:56 04/09/20 05:28 04/09/20 07:36 Temperature 97.1 F L 98.2 F Pulse Rate 78 81 Respiratory Rate 18 16 16 Blood Pressure 167/91 H Pulse Oximetry 98 97 Oxygen Delivery Method Room Air Oxygen Flow Rate 0 Narrative Exam Narrative: GENERAL: Alert, oriented, comfortable. Non toxic, well appearing. Appears stated age. Answers questions promptly and appropriately. Vital signs noted. HENT: Normocephalic, atraumatic. Hearing intact. EYES: Conjunctiva pink, sclera white, no periorbital swelling. CARDIOVASCULAR: Regular rate. No pedal edema. RESPIRATORY: Non-tachypneic, breathing comfortably on room air. GASTROINTESTINAL: Abdomen soft, rounded, incision is clean dry and intact without erythema. ENE drain output is serosanguineous GENITALURINARY: No flank tenderness. MUSCULOSKELETAL: Equal tone and mass bilaterally. SKIN: Warm, dry, soft, appropriate color for ethnicity. No other lesions, rashes, or wounds. NEURO: Alert and Oriented X 3. No gross sensory deficits, or cognitive issues. PSYCH: Appropriate affect and mood. Objective Imaging CT scan - abdomen: My impression: CT scan - abdomen: My impression: Fascial dehiscence Radiologist's impression: Radiologist's impression: [facility] [place] [id number] Scan ReportSigned Patient: Cici Glaser LMR#: [id number]: 7Acct:[id number]/Sex: 64 / FDate of Service: 04/07/20Loc: [id number] Number: [id number] Procedure: CT abdomen pelvis w con Ordering Provider: Adeline Wolf D.O. PROCEDURE: CT ABDOMEN PELVIS W CON INDICATIONS: abcess incision TECHNIQUE: After the administration of intravenous contrast, 5 mm thick sections acquired from the diaphragm to the symphysis. 5 mm coronal and sagittal reformats were acquired. For radiation dose reduction, the following was used: automated exposure control, adjustment of mA and/or kV according to patient size. COMPARISON: [facility], CT, CT ANGIO CHEST PE PROTOCOL, 01/09/2020, 11:13. [facility], CT, CT ABDOMEN PELVIS W CON, 01/06/2020, 5:25. FINDINGS: Image quality: Excellent. ABDOMEN: Lung bases: 5 millimeter nodular density is noted in anterior aspect of right middle lobe near right lung base . This was also seen on previous CT angiogram of chest study and likely represent benign process. Heart size is normal. Solid organs: Liver is normal in size . There is hepatic steatosis. Gallbladder is within normal limits. Biliary system is non dilated. Pancreas enhances normally. Spleen is normal in size and enhancement. No adrenal nodules. Right pelvic transplant kidney is again noted with suggestion of a large staghorn calculus unchanged from prior study. No hydronephrosis is seen. Cortical thinning and small right renal cysts also noted. Left kidney show no renal stone or hydronephrosis. Left renal cyst is again seen, unchanged from previous study. Peritoneum and bowel: There is no evidence of bowel obstruction. Wall thickening involving distal pylorus and 1st through 3rd portion of duodenum is seen with adjacent fat stranding suggestive of gastroenteritis. No other area of abnormal bowel wall thickening is seen. Incisional hernia is seen in right anterior abdominal wall just lateral to the midline containing a short segment of bowel loops with mild fat stranding. No evidence of incarceration. No free fluid or free air. Nodes and vessels: No retroperitoneal or mesenteric adenopathy by size criteria. Aorta and inferior vena cava are normal in size. Miscellaneous: Right anterior abdominal wall defect as above. There is also skin thickening with underlying small area of fluid density measures 2 x 1.1 x 2.8 centimeters in size in anterior abdominal wall just superficial to the herniation sac and may represent postsurgical seroma. Appearance is not typical for abscess collection. Left anterior abdominal wall scarring is seen. PELVIS: Genitourinary: Bladder wall thickness is normal. Miscellaneous: No inguinal hernias or adenopathy. Bones: No suspicious bony lesions. No vertebral body compression fractures. Grade 1 anterolisthesis of L4 on L5 is noted. IMPRESSION: 1. Interval development of right anterior abdominal wall defect containing a short segment of small bowel loops without evidence of incarceration or strangulation. No bowel obstruction. No free fluid or free air. 2. Cellulitis and suggestion of small fluid collection in superficial abdominal wall just over the herniation sac as described above and likely represent small postsurgical seroma. Early developing abscess collection cannot be entirely excluded. 3. Wall thickening involving distal stomach and proximal to mid duodenum concerning for gastroduodenitis. 4. Stable appearance of left kidney and transplant right kidney. No hydronephro sis. 5. Stable 5 millimeters soft tissue density nodule in right middle lobe. Follow-up CT chest in 12 months can be done for evaluation if indicated. Dictated by: Lane Xie M.D. on 04/07/2020 at 17:38 Approved by: Lane Xie M.D. on 04/07/2020 at 17:45 Labs Labs: Labs Result Diagrams: 04/09/20 05:15 04/09/20 05:15 Labs: Laboratory Results - last 24 hr 04/08/20 04/09/20 04/09/20 14:30 05:15 05:15 WBC 11.4 H RBC 3.98 L Hgb 12.1 Hct 36.5 MCV 91.9 MCH 30.5 MCHC 33.2 RDW 13.2 Plt Count 305 Neut % (Auto) 76.6 H Lymph % (Auto) 14.4 L Davidson % (Auto) 7.4 Eos % (Auto) 1.0 L Baso % (Auto) 0.6 Neut # (Auto) 8700 H Lymph # (Auto) 1600 Davidson # (Auto) 800 Eos # (Auto) 100 Baso # (Auto) 100 Sodium 134 L 136 L Potassium 4.4 4.4 Chloride 100 102 Carbon Dioxide 28 32 BUN 22 H 19 H Creatinine 1.05 H 1.04 Estimated GFR 52.9 L 53.5 L BUN/Creatinine Ratio 21.0 18.3 Glucose 106 103 Calcium 9.1 8.9 Phosphorus 3.3 D Magnesium 1.8 Procalcitonin 04/09/20 05:15 WBC RBC Hgb Hct MCV MCH MCHC RDW Plt Count Neut % (Auto) Lymph % (Auto) Davidson % (Auto) Eos % (Auto) Baso % (Auto) Neut # (Auto) Lymph # (Auto) Davidson # (Auto) Eos # (Auto) Baso # (Auto) Sodium Potassium Chloride Carbon Dioxide BUN Creatinine Estimated GFR BUN/Creatinine Ratio Glucose Calcium Phosphorus Magnesium Procalcitonin < 0.05 PFSH Medical History Chickenpox (1963) Cystinuria Eczema Fractures (2014) Hyperlipemia (~07/2017) Hypertension Intractable right lower quadrant abdominal pain Kidney stones Mumps (1964) Rosacea Surgical History Hx of lithotripsy (~1985) Hx of surgical procedure Hx of tonsillectomy Status post kidney autotransplantation (1987) Family History Father Cancer Mother No problems noted. Social History marital status: household members: spouse occupational status: employed Smoking Status: Never smoker alcohol intake: never substance use type: does not use Discharge Assessment & Plan Assessment and Plan Assessment: Pt is doing well POD#2 s/p laparotomy, washout, and closure of fascial dehiscence and abdominal wall abscess as late complication of her laparotomy from February. Associated leukocytosis and LU have resolved. Plan of Treatment: Continue abdominal binder, drain management, wean off of pain meds, continue bowel regimen to prevent constipation, ambulation, avoidance of heavy lifting/abdominal wall strain, avoidance of constipation, call office on Friday to make follow up for week after next, call office and speak to doctor foundation relations manager if concerns arise before follow up. Discharge Plan Discharge Plan Patient Disposition: Home Provider Discharge Comment: Your surgery: You had a fluid collection within your abdominal wall, due to fat necrosis (breakdown of fat tissue) within the abdominal wall. You were also found to have fascial dehiscence (opening of the strong layers of the abdominal wall at the site of your prior incision from surgery in February). The fluid collection has been removed, and the skin and fat tissue have been closed over the fascial dehiscence. A drain was left to prevent reaccumulation of fluid as the abdominal wall heals again. Home care: At home, you need to wear your abdominal binder day and night as much as you can, only removing it to shower or to clean the binder. You may want to acquire a second binder from a local pharmacy, medical supply store, or by ordering online. That way you can switch them out in order to clean them as needed. Keep the binder snug in order to keep the abdominal wall compressed and prevent the formation of another fluid collection. Keep track of how much fluid is coming from your drain. Keep the drain entry site dry. You may shower and get your incision wet. Please keep the drain insertion site covered with an occlusive dressing when you shower so that the suture that keeps the drain in place will stay dry to help prevent it from coming loose from the skin and the drain coming out too soon. Pain management and bowel care: You will be prescribed a narcotic pain medication (Oxycodone). You should only take it as needed, and wean off of it as soon as you can. Keep in mind that it can cause constipation and dependency. You may substitute over the counter pain medication as tolerated and to help reduce the need for the narcotic. To wean off, you may reduce from 10mg to 5mg per dose initially, and then spread out the doses until you are off of the medication completely. You should take stool softeners or laxatives to prevent constipation from the pain meds. Prescriptions for pain medicine and anti nausea medicine were sent to your pharmacy. Follow up: In six months to one year you will need to have a repair of your abdominal wall. It is not safe to do at this time because of significant inflammation within the abdominal wall which causes attachment (adhesions) between the abdominal wall and the intestines. This inflammation is a natural part of healing from surgery. It takes several months for the inflammation to go down. The longer we wait, up to a year, the safer the next surgery will be. If your bowel becomes obstructed we may not have the option of waiting. Your CT scan and xrays show no obstruction at this time. Please call [facility] on Friday to make a follow up appointment for the last week of March to see Dr. Navas in the office. If you have concerning symptoms before the time of your follow up appointment, please call the office and speak to the doctor foundation relations manager, or come into the ER. Discharge orders & Medications Prescriptions: New oxycodone 5 mg tablet 10 mg PO Q4-6H PRN (Reason: post operative pain) Qty: 30 RF: 0 ondansetron 4 mg tablet,disintegrating 4 mg PO Q8H PRN (Reason: nausea and vomiting) Qty: 14 RF: 0 Continued hydrocodone-acetaminophen [[place]] 10-325 mg tablet 1 tab PO QID PRN (Reason: pain) RF: 0 epinephrine [EpiPen 2-Patricio] 0.3 mg/0.3 mL auto-injector 0.3 mg IM Q10M PRN (Reason: anaphylaxis) Qty: 1 RF: 0 atenolol 25 mg Tablet 25 mg PO BID Qty: 60 RF: 0 Follow up/Referrals: Syed Ji DO [Primary Care Provider] - Jessi Navas MD [Physician] - (Please call [facility] on Friday to make a follow up appointment for the last week of March to see Dr. Navas in the office. ) Diet/Activity/Treatments Diet: Diet as Tolerated Diet comment: Advance your diet as tolerated. Avoid things that are hard to digest. Activity: Avoid lifting more than 10 lbs, avoid constipation, straining the abdominal wall with situps/core work out. You should take walks, you may go up and down stairs, and stay active with your abdominal binder on. Skin/Wound/Dressing Care Report to your healthcare provider any signs of infection, such as:: chills, fever, night sweats, increased pain, unusual drainage and unusual redness Visit Report/Discharge Packet Instructions: DI for [place] Drains, DI for Prescription Opioid Use, [facility]: Wound Care Stand Alone Forms: Surgery Discharge Discharge Data Primary Care Provider: Syed Ji Quality VTE Deep Vein Thrombosis/Pulmonary Embolism Present on Admission: No
[2020-04-09] MEDS: DOCUSATE 100 MG CAPSULE PO (10:57)
[2020-04-09] MEDS: HEPARIN 5,000 UNIT/ML VIAL 5000 UNIT SUBCUT (10:57)
[2020-04-09] MEDS: SENNOSIDES 8.6 MG TABLET 17.2 MG PO (10:59)
[2020-04-09] MEDS: MAGNESIUM SULFATE 2 GM/50 ML PIGGYBACK IV (11:00)
[2020-04-09] MEDS: SODIUM CHLORIDE 0.9% FLUSH 10 ML IV (11:01)
--- NOTE | 2020-04-09 12:35 | PC.NURSE ---
PT DISCHARGED TO HOME AFTER LENGTHY CONVERSATION OF POST HOSPITAL CARE PLAN WITH BOTH PT AND SPOUSE, ONESIMO- THEY ARE COMFORTABLE WITH THIS PLAN AND PAIN CONTROL IS GOOD WITH CURRENT REGIMEN AND THEY ALSO KNOW HOW TO CARE FOR WOUND AND DRAIN-
== END 2020-04-09 12:36 | disposition home or self-care (01) | DRG 857 ==
LOC: ED 17:07 → AC 17:51
PROVIDERS: Admitting Provider Surgery; Emergency Provider Emergency Medicine; Family Provider Internal Medicine Nephrology; PCP Family Medicine; Referring Provider Emergency Medicine; Visit Provider Surgery
PROC: 0DN80ZZ Release Small Intestine, Open Approach (ICD-10-PCS; CPT 44140; principal; 2020-04-07 18:00)
DX: T81.49XA Infection following a procedure, other surgical site, initial encounter (principal); L02.211 Cutaneous abscess of abdominal wall; K65.4 Sclerosing mesenteritis; E72.01 Cystinuria; T81.31XA Disruption of external operation (surgical) wound, not elsewhere classified, initial encounter; I10 Essential (primary) hypertension; Z20.828 Contact with and (suspected) exposure to other viral communicable diseases
CPT/HCPCS: 36415; 74018; 74177; 80048; 80053; 82962; 83605; 83735; 84100; 84145; 85025; 87040; 87070; 87075; 87077; 87186; 87205; 87635; 94762; 96365; 96368; 96375; 99284; J0330; J1100; J1170; J1644; J2060; J2185; J2250; J2270; J2405; J2704; J3010; Q9967

== ENCOUNTER → 2020-07-07 16:41 | Outpatient (CLI) | payer OTHER, SELFPAY ==
[2020-05-09 10:21] VITALS: BMI 27.4
[2020-07-07 18:57] LABS: Free T3, Triiodothyronine Free 4.25 pg/mL (2.77-5.27); Free T4, Direct Thyroxine 1.29 ng/dL (0.78-2.19)
[2020-07-07 19:11] LABS: Thyroid Stimulating Hormone 0.097 uIU/mL (0.47-4.68)
== END ==
PROVIDERS: Family Provider Internal Medicine Nephrology; PCP Family Medicine; Referring Provider Family Medicine; Visit Provider Family Medicine
DX: R68.89 Other general symptoms and signs (principal); R53.83 Other fatigue
CPT/HCPCS: 36415; 84439; 84443; 84481

== ENCOUNTER → 2020-07-20 12:36 | Outpatient (CLI) | payer OTHER, SELFPAY ==
[2020-05-09 10:21] VITALS: BMI 27.4
[2020-07-20] MEDS: COVID-19 VACC #1, MRNA(MOD) 100 MCG/0.5 ML VIAL IM (12:43)
== END ==
PROVIDERS: Family Provider Internal Medicine Nephrology; PCP Family Medicine; Visit Provider Internal Medicine
DX: Z23 Encounter for immunization (principal)
CPT/HCPCS: 0011A; 91301

== ENCOUNTER → 2020-08-17 12:15 | Outpatient (CLI) | payer OTHER, SELFPAY ==
[2020-05-09 10:21] VITALS: BMI 27.4
[2020-08-17] MEDS: COVID-19 VACC #2, MRNA(MOD) 100 MCG/0.5 ML VIAL IM (12:20)
== END ==
PROVIDERS: Family Provider Internal Medicine Nephrology; PCP Family Medicine; Visit Provider Internal Medicine
DX: Z23 Encounter for immunization (principal)
CPT/HCPCS: 0012A; 91301

== ENCOUNTER 2020-11-07 10:30 | Outpatient (RCR) | payer OTHER, SELFPAY ==
[2020-05-09 10:21] VITALS: BMI 27.4
--- NOTE | 2020-09-21 09:45 | PT.OIE ---
Current Diagnoses Other chronic pain (09/21/20) Torticollis (09/21/20) Lumbago with sciatica, unspecified side (09/21/20) Other malaise (09/21/20) Past Medical History (Last Updated 08/29/20 @ 16:37 by Syed Ji DO) Abdominal bloating Abdominal pain Acute bilateral thoracic back pain Anxiety about health Cervical somatic dysfunction Chickenpox (1963) Chronic left-sided low back pain without sciatica Cranial somatic dysfunction Cystinuria Eczema Fatigue Fractures (2014) Hyperlipemia (~07/2017) Hypertension Intractable right lower quadrant abdominal pain Kidney stones Lumbar region somatic dysfunction Mumps (1964) Nausea & vomiting Neck stiffness Pelvic somatic dysfunction Physical deconditioning Rosacea Sacral region somatic dysfunction Sensation of feeling cold Somatic dysfunction of abdominal region Somatic dysfunction of lower extremity Thoracic region somatic dysfunction Past Surgical History (Last Reviewed 05/10/20 @ 09:37 by Jessi Navas MD) Hx of lithotripsy (~1985) Hx of surgical procedure Hx of tonsillectomy Status post kidney autotransplantation (1987) Visit Care Team Role Provider Type Syed Ji DO Attending Provider Physician Family Provider Primary Care Provider Referring Provider Specialty: Family Practice Address: [address] [place] [address] Email: Physical Therapy Initial Evaluation PT-OP-A Visit Information Start: 09/21/20 08:09 Freq: Status: Active Protocol: Document 09/21/20 09:00 HH (Rec: 09/21/20 11:11 [email or web address]) Out-Patient Physical Therapy Visit Information Visit Information Visit Type Initial Evaluation Visit Start Time 09:00 Visit Stop Time 09:45 Total Visit Minutes 45 Visit Number 05/14 Number of CONTACT CENTER SPECIALIST Visits 0 Evaluation Information Evaluation Date 09/21/20 Precautions Precautions 3 abdominal surgery since Dec, 2019. Very sensitive to pressure at abdominal region PT-OP-B Current Condition Start: 09/21/20 08:09 Freq: Status: Active Protocol: Document 09/21/20 09:00 HH (Rec: 09/21/20 12:50 [email or web address]) Current Condition History of Current Condition Onset Date last year Current Complaints Chronic left-sided low back pain History of Current Condition Cici is a 64yo female here for her chronic L sided LBP. Pt has a complicated surgical history on 04/07/20 to correct wound dehiscence and abscess after her acute appendicitis starting from december. pt then have debilitated postsurgical abdominal pain, back pain, nausea and significant weakness. pt stated she was pretty much bed bound for 6 weeks after March. Her major c/o at this point is L sided back with overall weakness. Her pain starts from L sided lumbar region and buttock area which radiates to L lateral leg, along with tingling/ numbness. She also has significant night pain 1-2 times a week. She currently has difficulty sitting >30 mins, climbing stair without support, and overall walk (pt walks with WBOS now). She has fallen 3 times since March which make hers very anxious about going out of her house. 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 Pt stated her back pain is surely affected by this procedure and her frequent kidney stone as well Future Testing and Treatments Planned Pt is currently seeing Dr. Ji for pain management (OMT) Treatment Goals Patient/Caregiver Goals 1. to be able to walk with normal gait pattern 2. reduce her fall risks 3. Overall LE and core strengthening. Prior Functional Status Baseline Function- ADL's Independent Baseline Function- Mobility Independent Baseline Function- Gait WNL Baseline Function- Work/School pt currently works from home Baseline Function- Recreation/Hobbies pt likes to hike and scuba diving normally walk 2 miles per day Current Functional Impairments (Reported) Functional Limitations- Mobility/Gait uses UE support for stair climbing, STS, transfers Personal Factors Other Personal Factors That May Effect multiple abdominal surgery Therapy/Recovery within last year. PT-OP-C Subjective Start: 09/21/20 08:09 Freq: Status: Active Protocol: Document 09/21/20 09:00 (Rec: 09/21/20 11:11 [email or web address]) Patient Questionnaires Oswestry Low Back Index Oswestry Score 60 Oswestry Impairment 60 to 79% Impaired (Score 60- 79) OP-PT Pain Assessment Location LBP Pain Location Details R LBP Intensity 8 Scale Used Numeric (0 - 10) Description Aching,Burning,Radiating Frequency Frequent Pain Aggravating Factors Position,Changing Position,ADL 's,Activity,Exercise,Standing, Sitting,Walking Pain Alleviating Factors Inactivity Bilateral Lower Abdomen Intensity 6 Scale Used Numeric (0 - 10) Description Aching,Burning,Dull Frequency Frequent Pain Aggravating Factors Position,ADL's,Activity, Exercise,Standing,Sitting, Walking Pain Alleviating Factors Inactivity PT-OP-D Balance Start: 09/21/20 08:09 Freq: Status: Active Protocol: Document 09/21/20 09:00 (Rec: 09/21/20 11:11 [email or web address]) Balance Tests Single Limb Standing Single Limb- Right 2s Single Limb- Left 1s PT-OP-F Manual Assessment Start: 09/21/20 08:09 Freq: Status: Active Protocol: Document 09/21/20 09:00 (Rec: 09/21/20 11:11 [email or web address]) Manual Assessments Soft Tissue Assessment Soft Tissue Mobility Assessment significant pain to light pressure at L gluteal muscle group and piriformis sensitive to touch and pressure at the entire abdominal region. PT-OP-G Mobility & Gait Start: 09/21/20 08:09 Freq: Status: Active Protocol: Document 09/21/20 09:00 (Rec: 09/21/20 11:11 [email or web address]) OP Mobility Evaluation Bed Mobility Rolling pt rotates her LEs and upper body seperately but very slowly d/t pain Supine to and from Sit pt uses elbow then extend her arms to reach long sit position followed by slow pivoting to sit at EOB Transfers Sit to Stand pt uses both UEs to push off from chair and slowly walk herself with UEs on thighs to uprigth position OP Gait Assessment Gait Deviations General Gait Pattern Antalgic,Decreased Stride Length,Decreased Feet Clearance,Lateral Trunk Lean Factors Limiting Gait Function Factors Limiting Gait Function Decreased Activity Tolerance, Decreased Sensation,Decreased Strength,Limited Range of Motion,Pain,Poor Balance,Poor Safety Awareness Comments Gait Comments pt amb with WBOS with a L toe out gait, along with decreased stance time on LLE Stair Climbing Evaluation Technique/Endurance Stair Climbing Direction Ascend and Descend Stair Climbing Technique Step to Step Comments Stair Climbing Comments B support on handrails with step to pattern. Leading with L to ascend, and R to descend. PT-OP-H Neuro Start: 09/21/20 08:09 Freq: Status: Active Protocol: Document 09/21/20 09:00 HH (Rec: 09/21/20 11:11 HH [email or web address]) Sensation Evaluation Gross Sensation Gross Sensation Left LE Impaired Sensation Description Numbness,Tingling Dermatome Impairments L5,S1 Deep Tendon Reflex & Clonus Assessment Deep Tendon Reflex Bilateral Achilles Deep Tendon Reflex 2+ Normal Bilateral Patellar Deep Tendon Reflex 2+ Normal PT-OP-J Posture/Palpation/Skin Start: 09/21/20 08:09 Freq: Status: Active Protocol: Document 09/21/20 09:00 HH (Rec: 09/21/20 17:04 [email or web address]) Posture Evaluation Position Standing Evaluation View Anterior Weight Distribution Decreased Wt.Bear on (L) Hip Posture (L) Externally Rotated Knee Posture (L) Ext. Tibial Torsion PT-OP-K Range of Motion Start: 09/21/20 08:09 Freq: Status: Active Protocol: Document 09/21/20 09:00 HH (Rec: 09/21/20 17:04 HH [email or web address]) Hip Goniometric Range of Motion Hip Right Active Comments ASLR= 15 PSLR= 55 (significant weakness noted. Pt reports difficulty engaging abdominal muscles) Left Active Comments ASLR= 35 PSLR= 62\ (significant weakness noted. pt reports difficulty engaging abdominal muscles) Hip ROM Limitations Hip ROM Limitations Soft Tissue Tightness,Muscle Weakness,Pain PT-OP-M Strength Start: 09/21/20 08:09 Freq: Status: Active Protocol: Document 09/21/20 09:00 HH (Rec: 09/21/20 17:04 HH [email or web address]) Hip Strength Hip Manual Muscle Testing Right Flexion (L2) 4 Good Extension (S1) 4 Good Abduction 4 Good External Rotation 4 Good Internal Rotation 4 Good Left Flexion (L2) 3+ Fair+ Extension (S1) 3+ Fair+ Abduction 3+ Fair+ External Rotation 3+ Fair+ Internal Rotation 3+ Fair+ Knee Strength Knee Manual Muscle Testing Right Flexion (S2) 4+ Good+ Extension (L3) 4+ Good+ Left Flexion (S2) 4- Good- Extension (L3) 4+ Good+ Ankle/Foot Strength Ankle and Foot Manual Muscle Testing Right Dorsiflexion (L4) 4+ Good+ Plantarflexion (S1) 4+ Good+ Inversion 4+ Good+ Eversion (S1) 4+ Good+ Left Dorsiflexion (L4) 4+ Good+ Plantarflexion (S1) 4+ Good+ Inversion 4+ Good+ Eversion (S1) 4+ Good+ Toe Strength Toe Manual Muscle Testing Right Great Toe Flexion 4+ Good+ Extension 4+ Good+ Left Great Toe Flexion 4 Good Extension 4 Good PT-OP-T Assessment and Plan Start: 09/21/20 08:09 Freq: Status: Active Protocol: Document 09/21/20 09:00 (Rec: 09/21/20 17:04 [email or web address]) Physical Therapy Assessment Rehab Potential Rehabilitation Potential Good Evaluation Complexity Number of Personal Factors/Comorbidities 3 or More Number of Body Systems Impaired 4 or More Clinical Presentation at Evaluation Stable Impairments Impairments Activity Tolerance,Balance, Functional Activities, Functional Mobility,Gait,Pain, Posture,ROM,Sensation,Soft Tissue Mobility,Strength,Tone, Transfers Goals falls Impairment pt had 3 falls over the past 6 months Short Term Goal (STG) pt will show improved overall strength, balance, gait pattern and safety awareness therefore she will not fall again in the future. STG Duration 12 weeks activity tolerance Impairment pt needs UE support for stair climbing and STS Short Term Goal (STG) pt will show improved leg strength to be able to complete 5 times sit to stand without using UE support STG Duration 6 weeks Employment Service Specialist Goal (LTG) pt will show improved single leg strength to be able to climb stairs with step over pattern and 1UE support on handrail LTG Duration 12 weeks gait Impairment pt walks with a L toe out gait Short Term Goal (STG) pt will show improved single leg balance to > 5 seconds on each LE STG Duration 4 weeks Usp Goal (LTG) pt will show improved single leg balance to >10 seconds on each LE in order to normalize her gait without L toe out/ WBOS pattern LTG Duration 8 weeks Owestry Impairment pt scores 60 on Owestry Short Term Goal (STG) pt will be able to score <45 on owestry to show improved quality of life STG Duration 6 weeks Employment Service Specialist Goal (LTG) pt will be able to score <30 on owestry to show improved quality of life LTG Duration 12 weeks Assessment Summary Assessment Cici is a 64 yo female with history of surgery on 2019 to correct wound dehiscence and abscess after complications from her surgery in december for acute appendicitis. Pt has been significantly debilitated with postsurgical abdominal pain, back, neck pain and stiffness. 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 Upon assessment, pt stated she is far away from her PLOF since her abdominal surgery. She presents tremendous overall weakenss (L >R on LEs) and significant pain predominantly on L sided low back. Pt shows very poor abdominal strength and trunk stability who has difficulty with active SLR. She also has alistair sign during transfers and bed mobility, along with ambulating with WBOS (L foot log turner) and small strides. D /t pt's complicated medical hx and debilitated pain and weakness, this is possibly a long course of skilled rehab to assist Ching to reach her PLOF who uses to walk 2 miles a day and scuba dive few times a month. I will also further assess pt's lumbar spine to see if there's lumbar radiculopathy next visit. Physical Therapy Plan Frequency and Duration Frequency of Treatment 2x/Week Duration of Treatment 12 weeks Plan of Care Start Date 09/21/20 Plan of Care End Date 12/20/20 Therapeutic Interventions Therapeutic Interventions Aquatic Therapy,Balance Training,Gait Training,Home Exercise Program,Joint Mobilizations,Manual Therapy, Neuromuscular Re-education, Patient/Caregiver Education, Self-Care/Home Management,Soft Tissue Mobilization,Taping, Therapeutic Activities, Therapeutic Exercises Modalities Biofeedback,Cold Pack/Ice Massage,Electric Stimulation, Hot Packs,Infrared Therapy, Iontophoresis,Traction- Mechanical,Ultrasound Next Visit Focus/Plan Next Note Type Treatment Note Next Visit Plan slump test, slr initiate manual therapy on L glute, piriformis gentle trunk ROM FERNANDO pelvic tilt briding with Ppt relaxtion technique if needed
--- NOTE | 2020-09-26 12:49 | PT.OTN ---
Current Diagnoses Other chronic pain (09/26/20) Torticollis (09/26/20) Lumbago with sciatica, unspecified side (09/26/20) Other malaise (09/26/20) Physical Therapy Treatment Note PT-OP-A Visit Information Start: 09/21/20 08:09 Freq: Status: Active Protocol: Document 09/26/20 08:54 HH (Rec: 09/26/20 12:14 [id number]) Out-Patient Physical Therapy Visit Information Visit Information Visit Type Treatment Note Visit Start Time 09:00 Visit Stop Time 09:44 Total Visit Minutes 44 Visit Number 06/14 Number of MEDICAL SPECIALIST Visits 0 PT-OP-B Current Condition Start: 09/21/20 08:09 Freq: Status: Active Protocol: Document 09/21/20 09:00 HH (Rec: 09/21/20 12:50 HH [email or web address]) Current Condition History of Current Condition Onset Date last year Current Complaints Chronic left-sided low back pain History of Current Condition Cici is a 64yo female here for her chronic L sided LBP. Pt has a complicated surgical history on 04/07/20 to correct wound dehiscence and abscess after her acute appendicitis starting from december. pt then have debilitated postsurgical abdominal pain, back pain, nausea and significant weakness. pt stated she was pretty much bed bound for 6 weeks after March. Her major c/o at this point is L sided back with overall weakness. Her pain starts from L sided lumbar region and buttock area which radiates to L lateral leg, along with tingling/ numbness. She also has significant night pain 1-2 times a week. She currently has difficulty sitting >30 mins, climbing stair without support, and overall walk (pt walks with WBOS now). She has fallen 3 times since March which make hers very anxious about going out of her house. 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 Pt stated her back pain is surely affected by this procedure and her frequent kidney stone as well Future Testing and Treatments Planned Pt is currently seeing Dr. Ji for pain management (OMT) Treatment Goals Patient/Caregiver Goals 1. to be able to walk with normal gait pattern 2. reduce her fall risks 3. Overall LE and core strengthening. Prior Functional Status Baseline Function- ADL's Independent Baseline Function- Mobility Independent Baseline Function- Gait WNL Baseline Function- Work/School pt currently works from home Baseline Function- Recreation/Hobbies pt likes to hike and scuba diving normally walk 2 miles per day Current Functional Impairments (Reported) Functional Limitations- Mobility/Gait uses UE support for stair climbing, STS, transfers Personal Factors Other Personal Factors That May Effect multiple abdominal surgery Therapy/Recovery within last year. PT-OP-C Subjective Start: 09/21/20 08:09 Freq: Status: Active Protocol: Document 09/26/20 08:54 HH (Rec: 09/26/20 12:14 HH [id number]) OP-PT Subjective Patient Comments Patient Comments Im ready for PT PT-OP-D Balance Start: 09/21/20 08:09 Freq: Status: Active Protocol: Document 09/21/20 09:00 HH (Rec: 09/21/20 11:11 [email or web address]) Balance Tests Single Limb Standing Single Limb- Right 2s Single Limb- Left 1s PT-OP-F Manual Assessment Start: 09/21/20 08:09 Freq: Status: Active Protocol: Document 09/21/20 09:00 HH (Rec: 09/21/20 11:11 HH [email or web address]) Manual Assessments Soft Tissue Assessment Soft Tissue Mobility Assessment significant pain to light pressure at L gluteal muscle group and piriformis sensitive to touch and pressure at the entire abdominal region. PT-OP-G Mobility & Gait Start: 09/21/20 08:09 Freq: Status: Active Protocol: Document 09/21/20 09:00 HH (Rec: 09/21/20 11:11 [email or web address]) OP Mobility Evaluation Bed Mobility Rolling pt rotates her LEs and upper body seperately but very slowly d/t pain Supine to and from Sit pt uses elbow then extend her arms to reach long sit position followed by slow pivoting to sit at EOB Transfers Sit to Stand pt uses both UEs to push off from chair and slowly walk herself with UEs on thighs to uprigth position OP Gait Assessment Gait Deviations General Gait Pattern Antalgic,Decreased Stride Length,Decreased Feet Clearance,Lateral Trunk Lean Factors Limiting Gait Function Factors Limiting Gait Function Decreased Activity Tolerance, Decreased Sensation,Decreased Strength,Limited Range of Motion,Pain,Poor Balance,Poor Safety Awareness Comments Gait Comments pt amb with WBOS with a L toe out gait, along with decreased stance time on LLE Stair Climbing Evaluation Technique/Endurance Stair Climbing Direction Ascend and Descend Stair Climbing Technique Step to Step Comments Stair Climbing Comments B support on handrails with step to pattern. Leading with L to ascend, and R to descend. PT-OP-H Neuro Start: 09/21/20 08:09 Freq: Status: Active Protocol: Document 09/21/20 09:00 HH (Rec: 09/21/20 11:11 [email or web address]) Sensation Evaluation Gross Sensation Gross Sensation Left LE Impaired Sensation Description Numbness,Tingling Dermatome Impairments L5,S1 Deep Tendon Reflex & Clonus Assessment Deep Tendon Reflex Bilateral Achilles Deep Tendon Reflex 2+ Normal Bilateral Patellar Deep Tendon Reflex 2+ Normal PT-OP-J Posture/Palpation/Skin Start: 09/21/20 08:09 Freq: Status: Active Protocol: Document 09/21/20 09:00 HH (Rec: 09/21/20 17:04 [email or web address]) Posture Evaluation Position Standing Evaluation View Anterior Weight Distribution Decreased Wt.Bear on (L) Hip Posture (L) Externally Rotated Knee Posture (L) Ext. Tibial Torsion PT-OP-K Range of Motion Start: 09/21/20 08:09 Freq: Status: Active Protocol: Document 09/21/20 09:00 HH (Rec: 09/21/20 17:04 [email or web address]) Hip Goniometric Range of Motion Hip Right Active Comments ASLR= 15 PSLR= 55 (significant weakness noted. Pt reports difficulty engaging abdominal muscles) Left Active Comments ASLR= 35 PSLR= 62\ (significant weakness noted. pt reports difficulty engaging abdominal muscles) Hip ROM Limitations Hip ROM Limitations Soft Tissue Tightness,Muscle Weakness,Pain PT-OP-M Strength Start: 09/21/20 08:09 Freq: Status: Active Protocol: Document 09/21/20 09:00 HH (Rec: 09/21/20 17:04 [email or web address]) Hip Strength Hip Manual Muscle Testing Right Flexion (L2) 4 Good Extension (S1) 4 Good Abduction 4 Good External Rotation 4 Good Internal Rotation 4 Good Left Flexion (L2) 3+ Fair+ Extension (S1) 3+ Fair+ Abduction 3+ Fair+ External Rotation 3+ Fair+ Internal Rotation 3+ Fair+ Knee Strength Knee Manual Muscle Testing Right Flexion (S2) 4+ Good+ Extension (L3) 4+ Good+ Left Flexion (S2) 4- Good- Extension (L3) 4+ Good+ Ankle/Foot Strength Ankle and Foot Manual Muscle Testing Right Dorsiflexion (L4) 4+ Good+ Plantarflexion (S1) 4+ Good+ Inversion 4+ Good+ Eversion (S1) 4+ Good+ Left Dorsiflexion (L4) 4+ Good+ Plantarflexion (S1) 4+ Good+ Inversion 4+ Good+ Eversion (S1) 4+ Good+ Toe Strength Toe Manual Muscle Testing Right Great Toe Flexion 4+ Good+ Extension 4+ Good+ Left Great Toe Flexion 4 Good Extension 4 Good PT-OP-Q Treatments Start: 09/21/20 08:09 Freq: Status: Active Protocol: Document 09/26/20 08:54 HH (Rec: 09/26/20 12:14 [id number]) Therapeutic Exercises Supine Exercises diaphramatic breathing Reps/Minutes 6 mins Comments in via nose, out via mouth. bridging Supine Exercise Name pt minimally clear off table. Side bilateral Reps/Minutes 5x2 Comments for HEP. cues on PPT first pelvic tilt Reps/Minutes 10 x2 Comments tactile cues with PT's hand at lumbar region FERNANDO Reps/Minutes 10 x2 Comments for HEP, cues on breathing into abdominal, in with nose out with mouth LTR Equipment Used green ball between knees Reps/Minutes 8 x2 Comments for HEP Manual Therapy Treatment Soft Tissue Mobilization hip flexors Mobilization Type Myofascial Release Intensity/Depth Superficial Body Position Hooklying Comments pt needs cues to facilitate deep breathing for relaxation. abdominal Body Location R upper and lower quardrant Mobilization Type Myofascial Release Intensity/Depth Superficial Body Position Hooklying Comments significant tenderness to light pressure but stated relief after. PT-OP-T Assessment and Plan Start: 09/21/20 08:09 Freq: Status: Active Protocol: Document 09/26/20 08:54 (Rec: 09/26/20 12:14 [id number]) Physical Therapy Assessment Goals falls Impairment pt had 3 falls over the past 6 months Short Term Goal (STG) pt will show improved overall strength, balance, gait pattern and safety awareness therefore she will not fall again in the future. STG Duration 12 weeks activity tolerance Impairment pt needs UE support for stair climbing and STS Short Term Goal (STG) pt will show improved leg strength to be able to complete 5 times sit to stand without using UE support STG Duration 6 weeks Snf Goal (LTG) pt will show improved single leg strength to be able to climb stairs with step over pattern and 1UE support on handrail LTG Duration 12 weeks gait Impairment pt walks with a L toe out gait Short Term Goal (STG) pt will show improved single leg balance to > 5 seconds on each LE STG Duration 4 weeks Cnc Milling Machinist Goal (LTG) pt will show improved single leg balance to >10 seconds on each LE in order to normalize her gait without L toe out/ WBOS pattern LTG Duration 8 weeks Owestry Impairment pt scores 60 on Owestry Short Term Goal (STG) pt will be able to score <45 on owestry to show improved quality of life STG Duration 6 weeks Cnc Milling Machinist Goal (LTG) pt will be able to score <30 on owestry to show improved quality of life LTG Duration 12 weeks Assessment Summary Assessment first tx today with pt, pt appears very SOB and needs extensive cues to practice diaphragmatic breathing. She also has difficulty engaging abdominal muscles. Spent most time to provide cues for pelvic tilt, FERNANDO and pt respond well. Physical Therapy Plan Frequency and Duration Frequency of Treatment 2x/Week Duration of Treatment 12 weeks Plan of Care Start Date 09/21/20 Plan of Care End Date 12/20/20 Therapeutic Interventions Therapeutic Interventions Aquatic Therapy,Balance Training,Gait Training,Home Exercise Program,Joint Mobilizations,Manual Therapy, Neuromuscular Re-education, Patient/Caregiver Education, Self-Care/Home Management,Soft Tissue Mobilization,Taping, Therapeutic Activities, Therapeutic Exercises Modalities Biofeedback,Cold Pack/Ice Massage,Electric Stimulation, Hot Packs,Infrared Therapy, Iontophoresis,Traction- Mechanical,Ultrasound Next Visit Focus/Plan Next Note Type Treatment Note Next Visit Plan slump test, slr initiate manual therapy on L glute, piriformis gentle trunk ROM FERNANDO pelvic tilt briding with Ppt relaxtion technique if needed
--- NOTE | 2020-10-03 09:46 | PT.OTN ---
Current Diagnoses Other chronic pain (10/03/20) Torticollis (10/03/20) Lumbago with sciatica, unspecified side (10/03/20) Other malaise (10/03/20) Physical Therapy Treatment Note PT-OP-A Visit Information Start: 09/21/20 08:09 Freq: Status: Active Protocol: Document 10/03/20 09:02 HH (Rec: 10/03/20 09:46 [id number]) Out-Patient Physical Therapy Visit Information Visit Information Visit Type Treatment Note Visit Start Time 09:02 Visit Stop Time 09:45 Total Visit Minutes 43 Visit Number 07/12 Number of WELCOME WAGON HOSTESS Visits 0 PT-OP-B Current Condition Start: 09/21/20 08:09 Freq: Status: Active Protocol: Document 09/21/20 09:00 HH (Rec: 09/21/20 12:50 HH [email or web address]) Current Condition History of Current Condition Onset Date last year Current Complaints Chronic left-sided low back pain History of Current Condition Cici is a 64yo female here for her chronic L sided LBP. Pt has a complicated surgical history on 04/07/20 to correct wound dehiscence and abscess after her acute appendicitis starting from december. pt then have debilitated postsurgical abdominal pain, back pain, nausea and significant weakness. pt stated she was pretty much bed bound for 6 weeks after March. Her major c/o at this point is L sided back with overall weakness. Her pain starts from L sided lumbar region and buttock area which radiates to L lateral leg, along with tingling/ numbness. She also has significant night pain 1-2 times a week. She currently has difficulty sitting >30 mins, climbing stair without support, and overall walk (pt walks with WBOS now). She has fallen 3 times since March which make hers very anxious about going out of her house. 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 Pt stated her back pain is surely affected by this procedure and her frequent kidney stone as well Future Testing and Treatments Planned Pt is currently seeing Dr. Ji for pain management (OMT) Treatment Goals Patient/Caregiver Goals 1. to be able to walk with normal gait pattern 2. reduce her fall risks 3. Overall LE and core strengthening. Prior Functional Status Baseline Function- ADL's Independent Baseline Function- Mobility Independent Baseline Function- Gait WNL Baseline Function- Work/School pt currently works from home Baseline Function- Recreation/Hobbies pt likes to hike and scuba diving normally walk 2 miles per day Current Functional Impairments (Reported) Functional Limitations- Mobility/Gait uses UE support for stair climbing, STS, transfers Personal Factors Other Personal Factors That May Effect multiple abdominal surgery Therapy/Recovery within last year. PT-OP-C Subjective Start: 09/21/20 08:09 Freq: Status: Active Protocol: Document 10/03/20 09:02 HH (Rec: 10/03/20 09:46 [id number]) OP-PT Subjective Patient Comments Patient Comments Im getting better and cyn been doing all my exercises. I feel like i can engage my core better. Patient Reported Progress Improving PT-OP-D Balance Start: 09/21/20 08:09 Freq: Status: Active Protocol: Document 09/21/20 09:00 HH (Rec: 09/21/20 11:11 [email or web address]) Balance Tests Single Limb Standing Single Limb- Right 2s Single Limb- Left 1s PT-OP-F Manual Assessment Start: 09/21/20 08:09 Freq: Status: Active Protocol: Document 09/21/20 09:00 HH (Rec: 09/21/20 11:11 [email or web address]) Manual Assessments Soft Tissue Assessment Soft Tissue Mobility Assessment significant pain to light pressure at L gluteal muscle group and piriformis sensitive to touch and pressure at the entire abdominal region. PT-OP-G Mobility & Gait Start: 09/21/20 08:09 Freq: Status: Active Protocol: Document 09/21/20 09:00 HH (Rec: 09/21/20 11:11 [email or web address]) OP Mobility Evaluation Bed Mobility Rolling pt rotates her LEs and upper body seperately but very slowly d/t pain Supine to and from Sit pt uses elbow then extend her arms to reach long sit position followed by slow pivoting to sit at EOB Transfers Sit to Stand pt uses both UEs to push off from chair and slowly walk herself with UEs on thighs to uprigth position OP Gait Assessment Gait Deviations General Gait Pattern Antalgic,Decreased Stride Length,Decreased Feet Clearance,Lateral Trunk Lean Factors Limiting Gait Function Factors Limiting Gait Function Decreased Activity Tolerance, Decreased Sensation,Decreased Strength,Limited Range of Motion,Pain,Poor Balance,Poor Safety Awareness Comments Gait Comments pt amb with WBOS with a L toe out gait, along with decreased stance time on LLE Stair Climbing Evaluation Technique/Endurance Stair Climbing Direction Ascend and Descend Stair Climbing Technique Step to Step Comments Stair Climbing Comments B support on handrails with step to pattern. Leading with L to ascend, and R to descend. PT-OP-H Neuro Start: 09/21/20 08:09 Freq: Status: Active Protocol: Document 09/21/20 09:00 HH (Rec: 09/21/20 11:11 [email or web address]) Sensation Evaluation Gross Sensation Gross Sensation Left LE Impaired Sensation Description Numbness,Tingling Dermatome Impairments L5,S1 Deep Tendon Reflex & Clonus Assessment Deep Tendon Reflex Bilateral Achilles Deep Tendon Reflex 2+ Normal Bilateral Patellar Deep Tendon Reflex 2+ Normal PT-OP-J Posture/Palpation/Skin Start: 09/21/20 08:09 Freq: Status: Active Protocol: Document 09/21/20 09:00 HH (Rec: 09/21/20 17:04 [email or web address]) Posture Evaluation Position Standing Evaluation View Anterior Weight Distribution Decreased Wt.Bear on (L) Hip Posture (L) Externally Rotated Knee Posture (L) Ext. Tibial Torsion PT-OP-K Range of Motion Start: 09/21/20 08:09 Freq: Status: Active Protocol: Document 09/21/20 09:00 HH (Rec: 09/21/20 17:04 [email or web address]) Hip Goniometric Range of Motion Hip Right Active Comments ASLR= 15 PSLR= 55 (significant weakness noted. Pt reports difficulty engaging abdominal muscles) Left Active Comments ASLR= 35 PSLR= 62\ (significant weakness noted. pt reports difficulty engaging abdominal muscles) Hip ROM Limitations Hip ROM Limitations Soft Tissue Tightness,Muscle Weakness,Pain PT-OP-M Strength Start: 09/21/20 08:09 Freq: Status: Active Protocol: Document 09/21/20 09:00 HH (Rec: 09/21/20 17:04 [email or web address]) Hip Strength Hip Manual Muscle Testing Right Flexion (L2) 4 Good Extension (S1) 4 Good Abduction 4 Good External Rotation 4 Good Internal Rotation 4 Good Left Flexion (L2) 3+ Fair+ Extension (S1) 3+ Fair+ Abduction 3+ Fair+ External Rotation 3+ Fair+ Internal Rotation 3+ Fair+ Knee Strength Knee Manual Muscle Testing Right Flexion (S2) 4+ Good+ Extension (L3) 4+ Good+ Left Flexion (S2) 4- Good- Extension (L3) 4+ Good+ Ankle/Foot Strength Ankle and Foot Manual Muscle Testing Right Dorsiflexion (L4) 4+ Good+ Plantarflexion (S1) 4+ Good+ Inversion 4+ Good+ Eversion (S1) 4+ Good+ Left Dorsiflexion (L4) 4+ Good+ Plantarflexion (S1) 4+ Good+ Inversion 4+ Good+ Eversion (S1) 4+ Good+ Toe Strength Toe Manual Muscle Testing Right Great Toe Flexion 4+ Good+ Extension 4+ Good+ Left Great Toe Flexion 4 Good Extension 4 Good PT-OP-Q Treatments Start: 09/21/20 08:09 Freq: Status: Active Protocol: Document 10/03/20 09:02 (Rec: 10/03/20 09:46 [id number]) Therapeutic Exercises Supine Exercises crunch hold Reps/Minutes 5 sec hold x5 Comments cues on PPT first. for HEP diaphramatic breathing Reps/Minutes 6 mins Comments in via nose, out via mouth. bridging Supine Exercise Name pt clear off table. Side bilateral Equipment Used green ball between knees. Reps/Minutes 5x2 Comments for HEP. cues on PPT first pelvic tilt Reps/Minutes 10 x2 Comments tactile cues with PT's hand at lumbar region FERNANDO Reps/Minutes 10 x2 Comments for HEP, cues on breathing into abdominal, in with nose out with mouth LTR Equipment Used green ball between knees Reps/Minutes 8 x2 Comments cues to keep her back flat on table Manual Therapy Treatment Soft Tissue Mobilization hip flexors Mobilization Type Myofascial Release Intensity/Depth Superficial Body Position Hooklying Comments pt needs cues to facilitate deep breathing for relaxation. abdominal Body Location R upper and lower quardrant Mobilization Type Myofascial Release Intensity/Depth Superficial Body Position Hooklying Comments significant tenderness to light pressure but stated relief after. PT-OP-T Assessment and Plan Start: 09/21/20 08:09 Freq: Status: Active Protocol: Document 10/03/20 09:02 (Rec: 10/03/20 09:46 [id number]) Physical Therapy Assessment Goals falls Impairment pt had 3 falls over the past 6 months Short Term Goal (STG) pt will show improved overall strength, balance, gait pattern and safety awareness therefore she will not fall again in the future. STG Duration 12 weeks activity tolerance Impairment pt needs UE support for stair climbing and STS Short Term Goal (STG) pt will show improved leg strength to be able to complete 5 times sit to stand without using UE support STG Duration 6 weeks Per Diem Physical Therapist Goal (LTG) pt will show improved single leg strength to be able to climb stairs with step over pattern and 1UE support on handrail LTG Duration 12 weeks gait Impairment pt walks with a L toe out gait Short Term Goal (STG) pt will show improved single leg balance to > 5 seconds on each LE STG Duration 4 weeks Half-Way Goal (LTG) pt will show improved single leg balance to >10 seconds on each LE in order to normalize her gait without L toe out/ WBOS pattern LTG Duration 8 weeks Owestry Impairment pt scores 60 on Owestry Short Term Goal (STG) pt will be able to score <45 on owestry to show improved quality of life STG Duration 6 weeks Half-Way Goal (LTG) pt will be able to score <30 on owestry to show improved quality of life LTG Duration 12 weeks Assessment Summary Assessment pt shows improved abdominal engagement, lumbopelvic control today. Added crunch hold 5 sec to her HEP. Physical Therapy Plan Frequency and Duration Frequency of Treatment 2x/Week Duration of Treatment 12 weeks Plan of Care Start Date 09/21/20 Plan of Care End Date 12/20/20 Therapeutic Interventions Therapeutic Interventions Aquatic Therapy,Balance Training,Gait Training,Home Exercise Program,Joint Mobilizations,Manual Therapy, Neuromuscular Re-education, Patient/Caregiver Education, Self-Care/Home Management,Soft Tissue Mobilization,Taping, Therapeutic Activities, Therapeutic Exercises Modalities Biofeedback,Cold Pack/Ice Massage,Electric Stimulation, Hot Packs,Infrared Therapy, Iontophoresis,Traction- Mechanical,Ultrasound Next Visit Focus/Plan Next Note Type Treatment Note Next Visit Plan slump test, slr initiate manual therapy on L glute, piriformis gentle trunk ROM FERNANDO pelvic tilt briding with Ppt relaxtion technique if needed
--- NOTE | 2020-10-10 11:46 | PT.OTN ---
Current Diagnoses Other chronic pain (10/10/20) Torticollis (10/10/20) Lumbago with sciatica, unspecified side (10/10/20) Other malaise (10/10/20) Physical Therapy Treatment Note PT-OP-A Visit Information Start: 09/21/20 08:09 Freq: Status: Active Protocol: Document 10/10/20 09:01 (Rec: 10/10/20 09:46 [id number]) Out-Patient Physical Therapy Visit Information Visit Information Visit Type Treatment Note Visit Start Time 09:01 Visit Stop Time 09:45 Total Visit Minutes 44 Visit Number 08/12 Number of SURVEY STATISTICIAN Visits 0 PT-OP-B Current Condition Start: 09/21/20 08:09 Freq: Status: Active Protocol: Document 09/21/20 09:00 (Rec: 09/21/20 12:50 [email or web address]) Current Condition History of Current Condition Onset Date last year Current Complaints Chronic left-sided low back pain History of Current Condition Cici is a 64yo female here for her chronic L sided LBP. Pt has a complicated surgical history on 04/07/20 to correct wound dehiscence and abscess after her acute appendicitis starting from december. pt then have debilitated postsurgical abdominal pain, back pain, nausea and significant weakness. pt stated she was pretty much bed bound for 6 weeks after March. Her major c/o at this point is L sided back with overall weakness. Her pain starts from L sided lumbar region and buttock area which radiates to L lateral leg, along with tingling/ numbness. She also has significant night pain 1-2 times a week. She currently has difficulty sitting >30 mins, climbing stair without support, and overall walk (pt walks with WBOS now). She has fallen 3 times since March which make hers very anxious about going out of her house. 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 Pt stated her back pain is surely affected by this procedure and her frequent kidney stone as well Future Testing and Treatments Planned Pt is currently seeing Dr. Ji for pain management (OMT) Treatment Goals Patient/Caregiver Goals 1. to be able to walk with normal gait pattern 2. reduce her fall risks 3. Overall LE and core strengthening. Prior Functional Status Baseline Function- ADL's Independent Baseline Function- Mobility Independent Baseline Function- Gait WNL Baseline Function- Work/School pt currently works from home Baseline Function- Recreation/Hobbies pt likes to hike and scuba diving normally walk 2 miles per day Current Functional Impairments (Reported) Functional Limitations- Mobility/Gait uses UE support for stair climbing, STS, transfers Personal Factors Other Personal Factors That May Effect multiple abdominal surgery Therapy/Recovery within last year. PT-OP-C Subjective Start: 09/21/20 08:09 Freq: Status: Active Protocol: Document 10/10/20 09:01 (Rec: 10/10/20 09:46 [id number]) OP-PT Subjective Patient Comments Patient Comments I felt really good so far except yesterday after i finished my crunch and i felt a little sore on my L side of the abdominal region. Im more stable and able to walk faster Patient Reported Progress Improving PT-OP-D Balance Start: 09/21/20 08:09 Freq: Status: Active Protocol: Document 09/21/20 09:00 HH (Rec: 09/21/20 11:11 [email or web address]) Balance Tests Single Limb Standing Single Limb- Right 2s Single Limb- Left 1s PT-OP-F Manual Assessment Start: 09/21/20 08:09 Freq: Status: Active Protocol: Document 09/21/20 09:00 HH (Rec: 09/21/20 11:11 [email or web address]) Manual Assessments Soft Tissue Assessment Soft Tissue Mobility Assessment significant pain to light pressure at L gluteal muscle group and piriformis sensitive to touch and pressure at the entire abdominal region. PT-OP-G Mobility & Gait Start: 09/21/20 08:09 Freq: Status: Active Protocol: Document 09/21/20 09:00 HH (Rec: 09/21/20 11:11 [email or web address]) OP Mobility Evaluation Bed Mobility Rolling pt rotates her LEs and upper body seperately but very slowly d/t pain Supine to and from Sit pt uses elbow then extend her arms to reach long sit position followed by slow pivoting to sit at EOB Transfers Sit to Stand pt uses both UEs to push off from chair and slowly walk herself with UEs on thighs to uprigth position OP Gait Assessment Gait Deviations General Gait Pattern Antalgic,Decreased Stride Length,Decreased Feet Clearance,Lateral Trunk Lean Factors Limiting Gait Function Factors Limiting Gait Function Decreased Activity Tolerance, Decreased Sensation,Decreased Strength,Limited Range of Motion,Pain,Poor Balance,Poor Safety Awareness Comments Gait Comments pt amb with WBOS with a L toe out gait, along with decreased stance time on LLE Stair Climbing Evaluation Technique/Endurance Stair Climbing Direction Ascend and Descend Stair Climbing Technique Step to Step Comments Stair Climbing Comments B support on handrails with step to pattern. Leading with L to ascend, and R to descend. PT-OP-H Neuro Start: 09/21/20 08:09 Freq: Status: Active Protocol: Document 09/21/20 09:00 HH (Rec: 09/21/20 11:11 [email or web address]) Sensation Evaluation Gross Sensation Gross Sensation Left LE Impaired Sensation Description Numbness,Tingling Dermatome Impairments L5,S1 Deep Tendon Reflex & Clonus Assessment Deep Tendon Reflex Bilateral Achilles Deep Tendon Reflex 2+ Normal Bilateral Patellar Deep Tendon Reflex 2+ Normal PT-OP-J Posture/Palpation/Skin Start: 09/21/20 08:09 Freq: Status: Active Protocol: Document 09/21/20 09:00 HH (Rec: 09/21/20 17:04 [email or web address]) Posture Evaluation Position Standing Evaluation View Anterior Weight Distribution Decreased Wt.Bear on (L) Hip Posture (L) Externally Rotated Knee Posture (L) Ext. Tibial Torsion PT-OP-K Range of Motion Start: 09/21/20 08:09 Freq: Status: Active Protocol: Document 09/21/20 09:00 HH (Rec: 09/21/20 17:04 [email or web address]) Hip Goniometric Range of Motion Hip Right Active Comments ASLR= 15 PSLR= 55 (significant weakness noted. Pt reports difficulty engaging abdominal muscles) Left Active Comments ASLR= 35 PSLR= 62\ (significant weakness noted. pt reports difficulty engaging abdominal muscles) Hip ROM Limitations Hip ROM Limitations Soft Tissue Tightness,Muscle Weakness,Pain PT-OP-M Strength Start: 09/21/20 08:09 Freq: Status: Active Protocol: Document 09/21/20 09:00 HH (Rec: 09/21/20 17:04 [email or web address]) Hip Strength Hip Manual Muscle Testing Right Flexion (L2) 4 Good Extension (S1) 4 Good Abduction 4 Good External Rotation 4 Good Internal Rotation 4 Good Left Flexion (L2) 3+ Fair+ Extension (S1) 3+ Fair+ Abduction 3+ Fair+ External Rotation 3+ Fair+ Internal Rotation 3+ Fair+ Knee Strength Knee Manual Muscle Testing Right Flexion (S2) 4+ Good+ Extension (L3) 4+ Good+ Left Flexion (S2) 4- Good- Extension (L3) 4+ Good+ Ankle/Foot Strength Ankle and Foot Manual Muscle Testing Right Dorsiflexion (L4) 4+ Good+ Plantarflexion (S1) 4+ Good+ Inversion 4+ Good+ Eversion (S1) 4+ Good+ Left Dorsiflexion (L4) 4+ Good+ Plantarflexion (S1) 4+ Good+ Inversion 4+ Good+ Eversion (S1) 4+ Good+ Toe Strength Toe Manual Muscle Testing Right Great Toe Flexion 4+ Good+ Extension 4+ Good+ Left Great Toe Flexion 4 Good Extension 4 Good PT-OP-Q Treatments Start: 09/21/20 08:09 Freq: Status: Active Protocol: Document 10/10/20 09:01 (Rec: 10/10/20 09:46 [id number]) Therapeutic Exercises Supine Exercises SLR Reps/Minutes 6x2 Comments cues on PPT crunch hold Reps/Minutes 5 sec hold x5 Comments cues on PPT first. for HEP diaphramatic breathing Reps/Minutes 6 mins Comments in via nose, out via mouth. bridging Supine Exercise Name pt clear off table. Side bilateral Equipment Used green ball between knees. Reps/Minutes 5x2 Comments for HEP. cues on PPT first pelvic tilt Reps/Minutes 10 x2 Comments tactile cues with PT's hand at lumbar region FERNANDO Reps/Minutes 10 x2 Comments for HEP, cues on breathing into abdominal, in with nose out with mouth LTR Equipment Used green ball between knees Reps/Minutes 8 x2 Comments cues to keep her back flat on table Standing Exercises squat Standing Exercise Name chair in front of pt for support Side bilateral Reps/Minutes 6 x2 Comments cues for slow squat to facilitate muscle activation Manual Therapy Treatment Soft Tissue Mobilization abdominal Body Location R upper and lower quardrant Mobilization Type Myofascial Release Intensity/Depth Superficial Body Position Hooklying Comments significant tenderness to light pressure but relief after PT-OP-T Assessment and Plan Start: 09/21/20 08:09 Freq: Status: Active Protocol: Document 10/10/20 09:01 (Rec: 10/10/20 09:46 [id number]) Physical Therapy Assessment Goals falls Impairment pt had 3 falls over the past 6 months Short Term Goal (STG) pt will show improved overall strength, balance, gait pattern and safety awareness therefore she will not fall again in the future. STG Duration 12 weeks activity tolerance Impairment pt needs UE support for stair climbing and STS Short Term Goal (STG) pt will show improved leg strength to be able to complete 5 times sit to stand without using UE support STG Duration 6 weeks Senior Care Goal (LTG) pt will show improved single leg strength to be able to climb stairs with step over pattern and 1UE support on handrail LTG Duration 12 weeks gait Impairment pt walks with a L toe out gait Short Term Goal (STG) pt will show improved single leg balance to > 5 seconds on each LE STG Duration 4 weeks Fire Boat Engineer Goal (LTG) pt will show improved single leg balance to >10 seconds on each LE in order to normalize her gait without L toe out/ WBOS pattern LTG Duration 8 weeks Owestry Impairment pt scores 60 on Owestry Short Term Goal (STG) pt will be able to score <45 on owestry to show improved quality of life STG Duration 6 weeks Fire Boat Engineer Goal (LTG) pt will be able to score <30 on owestry to show improved quality of life LTG Duration 12 weeks Assessment Summary Assessment Pt came in with significant tightness and pain R lower ribcage region possibly d/t her practice with crunch. Pain was relieved after myofascial release and modification of crunch hold with LE only. Pt shows improved trunk stability overall. Physical Therapy Plan Frequency and Duration Frequency of Treatment 2x/Week Duration of Treatment 12 weeks Plan of Care Start Date 09/21/20 Plan of Care End Date 12/20/20 Therapeutic Interventions Therapeutic Interventions Aquatic Therapy,Balance Training,Gait Training,Home Exercise Program,Joint Mobilizations,Manual Therapy, Neuromuscular Re-education, Patient/Caregiver Education, Self-Care/Home Management,Soft Tissue Mobilization,Taping, Therapeutic Activities, Therapeutic Exercises Modalities Biofeedback,Cold Pack/Ice Massage,Electric Stimulation, Hot Packs,Infrared Therapy, Iontophoresis,Traction- Mechanical,Ultrasound Next Visit Focus/Plan Next Note Type Treatment Note Next Visit Plan slump test, slr initiate manual therapy on L glute, piriformis gentle trunk ROM FERNANDO pelvic tilt briding with Ppt relaxtion technique if needed
--- NOTE | 2020-10-24 14:31 | PT.OTN ---
Current Diagnoses Other chronic pain (10/24/20) Torticollis (10/24/20) Lumbago with sciatica, unspecified side (10/24/20) Other malaise (10/24/20) Physical Therapy Treatment Note PT-OP-A Visit Information Start: 09/21/20 08:09 Freq: Status: Active Protocol: Document 10/24/20 13:46 HH (Rec: 10/24/20 14:31 HH [id number]) Out-Patient Physical Therapy Visit Information Visit Information Visit Type Treatment Note Visit Start Time 13:47 Visit Stop Time 14:30 Total Visit Minutes 43 Visit Number 09/11 Number of PRACTICE REPRESENTATIVE Visits 0 PT-OP-B Current Condition Start: 09/21/20 08:09 Freq: Status: Active Protocol: Document 09/21/20 09:00 HH (Rec: 09/21/20 12:50 HH [email or web address]) Current Condition History of Current Condition Onset Date last year Current Complaints Chronic left-sided low back pain History of Current Condition Cici is a 64yo female here for her chronic L sided LBP. Pt has a complicated surgical history on 04/07/20 to correct wound dehiscence and abscess after her acute appendicitis starting from december. pt then have debilitated postsurgical abdominal pain, back pain, nausea and significant weakness. pt stated she was pretty much bed bound for 6 weeks after March. Her major c/o at this point is L sided back with overall weakness. Her pain starts from L sided lumbar region and buttock area which radiates to L lateral leg, along with tingling/ numbness. She also has significant night pain 1-2 times a week. She currently has difficulty sitting >30 mins, climbing stair without support, and overall walk (pt walks with WBOS now). She has fallen 3 times since March which make hers very anxious about going out of her house. 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 Pt stated her back pain is surely affected by this procedure and her frequent kidney stone as well Future Testing and Treatments Planned Pt is currently seeing Dr. Ji for pain management (OMT) Treatment Goals Patient/Caregiver Goals 1. to be able to walk with normal gait pattern 2. reduce her fall risks 3. Overall LE and core strengthening. Prior Functional Status Baseline Function- ADL's Independent Baseline Function- Mobility Independent Baseline Function- Gait WNL Baseline Function- Work/School pt currently works from home Baseline Function- Recreation/Hobbies pt likes to hike and scuba diving normally walk 2 miles per day Current Functional Impairments (Reported) Functional Limitations- Mobility/Gait uses UE support for stair climbing, STS, transfers Personal Factors Other Personal Factors That May Effect multiple abdominal surgery Therapy/Recovery within last year. PT-OP-C Subjective Start: 09/21/20 08:09 Freq: Status: Active Protocol: Document 10/24/20 13:46 HH (Rec: 10/24/20 14:31 HH [id number]) OP-PT Subjective Patient Comments Patient Comments I saw last week. I started having my sensation back at the bottom of my L foot. My abdominal pain has been more centralized right now. Walking is so much better . Patient Reported Progress Improving PT-OP-D Balance Start: 09/21/20 08:09 Freq: Status: Active Protocol: Document 09/21/20 09:00 HH (Rec: 09/21/20 11:11 [email or web address]) Balance Tests Single Limb Standing Single Limb- Right 2s Single Limb- Left 1s PT-OP-F Manual Assessment Start: 09/21/20 08:09 Freq: Status: Active Protocol: Document 09/21/20 09:00 HH (Rec: 09/21/20 11:11 HH [email or web address]) Manual Assessments Soft Tissue Assessment Soft Tissue Mobility Assessment significant pain to light pressure at L gluteal muscle group and piriformis sensitive to touch and pressure at the entire abdominal region. PT-OP-G Mobility & Gait Start: 09/21/20 08:09 Freq: Status: Active Protocol: Document 09/21/20 09:00 HH (Rec: 09/21/20 11:11 [email or web address]) OP Mobility Evaluation Bed Mobility Rolling pt rotates her LEs and upper body seperately but very slowly d/t pain Supine to and from Sit pt uses elbow then extend her arms to reach long sit position followed by slow pivoting to sit at EOB Transfers Sit to Stand pt uses both UEs to push off from chair and slowly walk herself with UEs on thighs to uprigth position OP Gait Assessment Gait Deviations General Gait Pattern Antalgic,Decreased Stride Length,Decreased Feet Clearance,Lateral Trunk Lean Factors Limiting Gait Function Factors Limiting Gait Function Decreased Activity Tolerance, Decreased Sensation,Decreased Strength,Limited Range of Motion,Pain,Poor Balance,Poor Safety Awareness Comments Gait Comments pt amb with WBOS with a L toe out gait, along with decreased stance time on LLE Stair Climbing Evaluation Technique/Endurance Stair Climbing Direction Ascend and Descend Stair Climbing Technique Step to Step Comments Stair Climbing Comments B support on handrails with step to pattern. Leading with L to ascend, and R to descend. PT-OP-H Neuro Start: 09/21/20 08:09 Freq: Status: Active Protocol: Document 09/21/20 09:00 HH (Rec: 09/21/20 11:11 [email or web address]) Sensation Evaluation Gross Sensation Gross Sensation Left LE Impaired Sensation Description Numbness,Tingling Dermatome Impairments L5,S1 Deep Tendon Reflex & Clonus Assessment Deep Tendon Reflex Bilateral Achilles Deep Tendon Reflex 2+ Normal Bilateral Patellar Deep Tendon Reflex 2+ Normal PT-OP-J Posture/Palpation/Skin Start: 09/21/20 08:09 Freq: Status: Active Protocol: Document 09/21/20 09:00 HH (Rec: 09/21/20 17:04 [email or web address]) Posture Evaluation Position Standing Evaluation View Anterior Weight Distribution Decreased Wt.Bear on (L) Hip Posture (L) Externally Rotated Knee Posture (L) Ext. Tibial Torsion PT-OP-K Range of Motion Start: 09/21/20 08:09 Freq: Status: Active Protocol: Document 09/21/20 09:00 HH (Rec: 09/21/20 17:04 [email or web address]) Hip Goniometric Range of Motion Hip Right Active Comments ASLR= 15 PSLR= 55 (significant weakness noted. Pt reports difficulty engaging abdominal muscles) Left Active Comments ASLR= 35 PSLR= 62\ (significant weakness noted. pt reports difficulty engaging abdominal muscles) Hip ROM Limitations Hip ROM Limitations Soft Tissue Tightness,Muscle Weakness,Pain PT-OP-M Strength Start: 09/21/20 08:09 Freq: Status: Active Protocol: Document 09/21/20 09:00 HH (Rec: 09/21/20 17:04 [email or web address]) Hip Strength Hip Manual Muscle Testing Right Flexion (L2) 4 Good Extension (S1) 4 Good Abduction 4 Good External Rotation 4 Good Internal Rotation 4 Good Left Flexion (L2) 3+ Fair+ Extension (S1) 3+ Fair+ Abduction 3+ Fair+ External Rotation 3+ Fair+ Internal Rotation 3+ Fair+ Knee Strength Knee Manual Muscle Testing Right Flexion (S2) 4+ Good+ Extension (L3) 4+ Good+ Left Flexion (S2) 4- Good- Extension (L3) 4+ Good+ Ankle/Foot Strength Ankle and Foot Manual Muscle Testing Right Dorsiflexion (L4) 4+ Good+ Plantarflexion (S1) 4+ Good+ Inversion 4+ Good+ Eversion (S1) 4+ Good+ Left Dorsiflexion (L4) 4+ Good+ Plantarflexion (S1) 4+ Good+ Inversion 4+ Good+ Eversion (S1) 4+ Good+ Toe Strength Toe Manual Muscle Testing Right Great Toe Flexion 4+ Good+ Extension 4+ Good+ Left Great Toe Flexion 4 Good Extension 4 Good PT-OP-Q Treatments Start: 09/21/20 08:09 Freq: Status: Active Protocol: Document 10/24/20 13:46 (Rec: 10/24/20 14:31 [id number]) Therapeutic Exercises Supine Exercises SLR Reps/Minutes 6x2 Comments cues on PPT crunch hold Reps/Minutes 10 sec hold x5 Comments cues on PPT first. for HEP diaphramatic breathing Reps/Minutes 6 mins Comments in via nose, out via mouth. bridging Supine Exercise Name pt clear off table. Side bilateral Equipment Used green ball between knees. Reps/Minutes 5x2 Comments cues on PPT first pelvic tilt Reps/Minutes 10 x2 Comments no cues needed. LTR Equipment Used green red therapy ball Reps/Minutes 8 x2 Comments cues to keep her back flat on table Standing Exercises squat Standing Exercise Name in front of counter top Side bilateral Reps/Minutes 5 x 2 Comments cues on hip hinge Manual Therapy Treatment Soft Tissue Mobilization hip flexors Mobilization Type Myofascial Release Intensity/Depth Superficial Body Position Hooklying Comments pt needs cues to facilitate deep breathing for relaxation. abdominal Body Location B upper and lower quardrant Mobilization Type Myofascial Release Intensity/Depth Superficial Body Position Hooklying Comments reduced tenderness to light pressure but relief after PT-OP-T Assessment and Plan Start: 09/21/20 08:09 Freq: Status: Active Protocol: Document 10/24/20 13:46 (Rec: 10/24/20 14:31 [email or web address]) Physical Therapy Assessment Goals falls Impairment pt had 3 falls over the past 6 months Short Term Goal (STG) pt will show improved overall strength, balance, gait pattern and safety awareness therefore she will not fall again in the future. STG Duration 12 weeks activity tolerance Impairment pt needs UE support for stair climbing and STS Short Term Goal (STG) pt will show improved leg strength to be able to complete 5 times sit to stand without using UE support STG Duration 6 weeks [facility] Goal (LTG) pt will show improved single leg strength to be able to climb stairs with step over pattern and 1UE support on handrail LTG Duration 12 weeks gait Impairment pt walks with a L toe out gait Short Term Goal (STG) pt will show improved single leg balance to > 5 seconds on each LE STG Duration 4 weeks [employer] Goal (LTG) pt will show improved single leg balance to >10 seconds on each LE in order to normalize her gait without L toe out/ WBOS pattern LTG Duration 8 weeks Owestry Impairment pt scores 60 on Owestry Short Term Goal (STG) pt will be able to score <45 on owestry to show improved quality of life STG Duration 6 weeks [employer] Goal (LTG) pt will be able to score <30 on owestry to show improved quality of life LTG Duration 12 weeks Assessment Summary Assessment pt shows good progress with reduced pain at abdominal regions. Improved core stability also noted. Added sit to stand with hip hinge pattern today. Physical Therapy Plan Frequency and Duration Frequency of Treatment 2x/Week Duration of Treatment 12 weeks Plan of Care Start Date 09/21/20 Plan of Care End Date 12/20/20 Therapeutic Interventions Therapeutic Interventions Aquatic Therapy,Balance Training,Gait Training,Home Exercise Program,Joint Mobilizations,Manual Therapy, Neuromuscular Re-education, Patient/Caregiver Education, Self-Care/Home Management,Soft Tissue Mobilization,Taping, Therapeutic Activities, Therapeutic Exercises Modalities Biofeedback,Cold Pack/Ice Massage,Electric Stimulation, Hot Packs,Infrared Therapy, Iontophoresis,Traction- Mechanical,Ultrasound Next Visit Focus/Plan Next Note Type Treatment Note Next Visit Plan slump test, slr initiate manual therapy on L glute, piriformis gentle trunk ROM FERNANDO pelvic tilt briding with Ppt relaxtion technique if needed
--- NOTE | 2020-10-31 12:21 | PT.OTN ---
Current Diagnoses Other chronic pain (10/31/20) Torticollis (10/31/20) Lumbago with sciatica, unspecified side (10/31/20) Other malaise (10/31/20) Physical Therapy Treatment Note PT-OP-A Visit Information Start: 09/21/20 08:09 Freq: Status: Active Protocol: Document 10/31/20 11:23 HH (Rec: 10/31/20 12:21 HH [id number]) Out-Patient Physical Therapy Visit Information Visit Information Visit Type Treatment Note Visit Start Time 11:20 Visit Stop Time 12:10 Total Visit Minutes 50 Visit Number 10/12 Number of SWAGE TOOLSETTER Visits 0 PT-OP-B Current Condition Start: 09/21/20 08:09 Freq: Status: Active Protocol: Document 09/21/20 09:00 HH (Rec: 09/21/20 12:50 HH [email or web address]) Current Condition History of Current Condition Onset Date last year Current Complaints Chronic left-sided low back pain History of Current Condition Cici is a 64yo female here for her chronic L sided LBP. Pt has a complicated surgical history on 04/07/20 to correct wound dehiscence and abscess after her acute appendicitis starting from december. pt then have debilitated postsurgical abdominal pain, back pain, nausea and significant weakness. pt stated she was pretty much bed bound for 6 weeks after March. Her major c/o at this point is L sided back with overall weakness. Her pain starts from L sided lumbar region and buttock area which radiates to L lateral leg, along with tingling/ numbness. She also has significant night pain 1-2 times a week. She currently has difficulty sitting >30 mins, climbing stair without support, and overall walk (pt walks with WBOS now). She has fallen 3 times since March which make hers very anxious about going out of her house. 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 Pt stated her back pain is surely affected by this procedure and her frequent kidney stone as well Future Testing and Treatments Planned Pt is currently seeing Dr. Ji for pain management (OMT) Treatment Goals Patient/Caregiver Goals 1. to be able to walk with normal gait pattern 2. reduce her fall risks 3. Overall LE and core strengthening. Prior Functional Status Baseline Function- ADL's Independent Baseline Function- Mobility Independent Baseline Function- Gait WNL Baseline Function- Work/School pt currently works from home Baseline Function- Recreation/Hobbies pt likes to hike and scuba diving normally walk 2 miles per day Current Functional Impairments (Reported) Functional Limitations- Mobility/Gait uses UE support for stair climbing, STS, transfers Personal Factors Other Personal Factors That May Effect multiple abdominal surgery Therapy/Recovery within last year. PT-OP-C Subjective Start: 09/21/20 08:09 Freq: Status: Active Protocol: Document 10/31/20 11:23 HH (Rec: 10/31/20 12:21 [email or web address]) OP-PT Subjective Patient Comments Patient Comments Im doing really good. I was able to get up and down the floor mat with the help of the chair by myself. I only have pressure at the center of the abdominal. Patient Reported Progress Improving PT-OP-D Balance Start: 09/21/20 08:09 Freq: Status: Active Protocol: Document 09/21/20 09:00 HH (Rec: 09/21/20 11:11 [email or web address]) Balance Tests Single Limb Standing Single Limb- Right 2s Single Limb- Left 1s PT-OP-F Manual Assessment Start: 09/21/20 08:09 Freq: Status: Active Protocol: Document 09/21/20 09:00 HH (Rec: 09/21/20 11:11 [email or web address]) Manual Assessments Soft Tissue Assessment Soft Tissue Mobility Assessment significant pain to light pressure at L gluteal muscle group and piriformis sensitive to touch and pressure at the entire abdominal region. PT-OP-G Mobility & Gait Start: 09/21/20 08:09 Freq: Status: Active Protocol: Document 09/21/20 09:00 HH (Rec: 09/21/20 11:11 [email or web address]) OP Mobility Evaluation Bed Mobility Rolling pt rotates her LEs and upper body seperately but very slowly d/t pain Supine to and from Sit pt uses elbow then extend her arms to reach long sit position followed by slow pivoting to sit at EOB Transfers Sit to Stand pt uses both UEs to push off from chair and slowly walk herself with UEs on thighs to uprigth position OP Gait Assessment Gait Deviations General Gait Pattern Antalgic,Decreased Stride Length,Decreased Feet Clearance,Lateral Trunk Lean Factors Limiting Gait Function Factors Limiting Gait Function Decreased Activity Tolerance, Decreased Sensation,Decreased Strength,Limited Range of Motion,Pain,Poor Balance,Poor Safety Awareness Comments Gait Comments pt amb with WBOS with a L toe out gait, along with decreased stance time on LLE Stair Climbing Evaluation Technique/Endurance Stair Climbing Direction Ascend and Descend Stair Climbing Technique Step to Step Comments Stair Climbing Comments B support on handrails with step to pattern. Leading with L to ascend, and R to descend. PT-OP-H Neuro Start: 09/21/20 08:09 Freq: Status: Active Protocol: Document 09/21/20 09:00 HH (Rec: 09/21/20 11:11 [email or web address]) Sensation Evaluation Gross Sensation Gross Sensation Left LE Impaired Sensation Description Numbness,Tingling Dermatome Impairments L5,S1 Deep Tendon Reflex & Clonus Assessment Deep Tendon Reflex Bilateral Achilles Deep Tendon Reflex 2+ Normal Bilateral Patellar Deep Tendon Reflex 2+ Normal PT-OP-J Posture/Palpation/Skin Start: 09/21/20 08:09 Freq: Status: Active Protocol: Document 09/21/20 09:00 HH (Rec: 09/21/20 17:04 [email or web address]) Posture Evaluation Position Standing Evaluation View Anterior Weight Distribution Decreased Wt.Bear on (L) Hip Posture (L) Externally Rotated Knee Posture (L) Ext. Tibial Torsion PT-OP-K Range of Motion Start: 09/21/20 08:09 Freq: Status: Active Protocol: Document 09/21/20 09:00 HH (Rec: 09/21/20 17:04 [email or web address]) Hip Goniometric Range of Motion Hip Right Active Comments ASLR= 15 PSLR= 55 (significant weakness noted. Pt reports difficulty engaging abdominal muscles) Left Active Comments ASLR= 35 PSLR= 62\ (significant weakness noted. pt reports difficulty engaging abdominal muscles) Hip ROM Limitations Hip ROM Limitations Soft Tissue Tightness,Muscle Weakness,Pain PT-OP-M Strength Start: 09/21/20 08:09 Freq: Status: Active Protocol: Document 09/21/20 09:00 HH (Rec: 09/21/20 17:04 [email or web address]) Hip Strength Hip Manual Muscle Testing Right Flexion (L2) 4 Good Extension (S1) 4 Good Abduction 4 Good External Rotation 4 Good Internal Rotation 4 Good Left Flexion (L2) 3+ Fair+ Extension (S1) 3+ Fair+ Abduction 3+ Fair+ External Rotation 3+ Fair+ Internal Rotation 3+ Fair+ Knee Strength Knee Manual Muscle Testing Right Flexion (S2) 4+ Good+ Extension (L3) 4+ Good+ Left Flexion (S2) 4- Good- Extension (L3) 4+ Good+ Ankle/Foot Strength Ankle and Foot Manual Muscle Testing Right Dorsiflexion (L4) 4+ Good+ Plantarflexion (S1) 4+ Good+ Inversion 4+ Good+ Eversion (S1) 4+ Good+ Left Dorsiflexion (L4) 4+ Good+ Plantarflexion (S1) 4+ Good+ Inversion 4+ Good+ Eversion (S1) 4+ Good+ Toe Strength Toe Manual Muscle Testing Right Great Toe Flexion 4+ Good+ Extension 4+ Good+ Left Great Toe Flexion 4 Good Extension 4 Good PT-OP-Q Treatments Start: 09/21/20 08:09 Freq: Status: Active Protocol: Document 10/31/20 11:23 (Rec: 10/31/20 12:21 [id number]) Cardio Equipment Bicycle (Upright) Duration (Minutes) 6 Resistance 3 Other no discomfort noted. Therapeutic Exercises Supine Exercises bridging Supine Exercise Name pt clear off table. Side bilateral Equipment Used green ball between knees. Reps/Minutes 8x2 Comments cues on PPT first pelvic tilt Reps/Minutes 10 x2 Comments no cues needed. LTR Equipment Used green red therapy ball Reps/Minutes 8 x2 Comments cues to keep her back flat on table Standing Exercises marching Standing Exercise Name cues on abdominal engagement Side bilateral Reps/Minutes 10x2 Comments for HEP step up Side bilateral Equipment Used 6 inch step Reps/Minutes 10 x2 Comments for HEP squat Standing Exercise Name in front of counter top, no UE support Side bilateral Reps/Minutes 5 x 2 Comments cues on hip hinge Manual Therapy Treatment Soft Tissue Mobilization hip flexors Mobilization Type Myofascial Release Intensity/Depth Superficial Body Position Hooklying Comments pt needs cues to facilitate deep breathing for relaxation. abdominal Body Location B upper and lower quardrant Mobilization Type Myofascial Release Intensity/Depth Superficial Body Position Hooklying Comments reduced tenderness to light pressure PT-OP-T Assessment and Plan Start: 09/21/20 08:09 Freq: Status: Active Protocol: Document 10/31/20 11:23 (Rec: 10/31/20 12:21 [id number]) Physical Therapy Assessment Goals falls Impairment pt had 3 falls over the past 6 months Short Term Goal (STG) pt will show improved overall strength, balance, gait pattern and safety awareness therefore she will not fall again in the future. STG Duration 12 weeks activity tolerance Impairment pt needs UE support for stair climbing and STS Short Term Goal (STG) pt will show improved leg strength to be able to complete 5 times sit to stand without using UE support STG Duration 6 weeks [employer] Goal (LTG) pt will show improved single leg strength to be able to climb stairs with step over pattern and 1UE support on handrail LTG Duration 12 weeks gait Impairment pt walks with a L toe out gait Short Term Goal (STG) pt will show improved single leg balance to > 5 seconds on each LE STG Duration 4 weeks [facility] Goal (LTG) pt will show improved single leg balance to >10 seconds on each LE in order to normalize her gait without L toe out/ WBOS pattern LTG Duration 8 weeks Owestry Impairment pt scores 60 on Owestry Short Term Goal (STG) pt will be able to score <45 on owestry to show improved quality of life STG Duration 6 weeks [employer] Goal (LTG) pt will be able to score <30 on owestry to show improved quality of life LTG Duration 12 weeks Assessment Summary Assessment pt is walking faster with more confidence. She was able to get up from the floor without assistance for the first time. Added LE strengthening ex and recommended pt to use her recumbent bike 20 mins per day . Physical Therapy Plan Frequency and Duration Frequency of Treatment 2x/Week Duration of Treatment 12 weeks Plan of Care Start Date 09/21/20 Plan of Care End Date 12/20/20 Therapeutic Interventions Therapeutic Interventions Aquatic Therapy,Balance Training,Gait Training,Home Exercise Program,Joint Mobilizations,Manual Therapy, Neuromuscular Re-education, Patient/Caregiver Education, Self-Care/Home Management,Soft Tissue Mobilization,Taping, Therapeutic Activities, Therapeutic Exercises Modalities Biofeedback,Cold Pack/Ice Massage,Electric Stimulation, Hot Packs,Infrared Therapy, Iontophoresis,Traction- Mechanical,Ultrasound Next Visit Focus/Plan Next Note Type Treatment Note Next Visit Plan slump test, slr initiate manual therapy on L glute, piriformis gentle trunk ROM FERNANDO pelvic tilt briding with Ppt relaxtion technique if needed
--- NOTE | 2020-11-07 12:24 | PT.OTN ---
Current Diagnoses Other chronic pain (11/07/20) Torticollis (11/07/20) Lumbago with sciatica, unspecified side (11/07/20) Other malaise (11/07/20) Physical Therapy Treatment Note PT-OP-A Visit Information Start: 09/21/20 08:09 Freq: Status: Active Protocol: Document 11/07/20 10:33 HH (Rec: 11/07/20 12:23 HH [id number]) Out-Patient Physical Therapy Visit Information Visit Information Visit Type Treatment Note Visit Start Time 10:33 Visit Stop Time 11:15 Total Visit Minutes 42 Visit Number 11/11 Number of SLUNK SKINNER Visits 0 PT-OP-B Current Condition Start: 09/21/20 08:09 Freq: Status: Active Protocol: Document 09/21/20 09:00 HH (Rec: 09/21/20 12:50 HH [email or web address]) Current Condition History of Current Condition Onset Date last year Current Complaints Chronic left-sided low back pain History of Current Condition Cici is a 64yo female here for her chronic L sided LBP. Pt has a complicated surgical history on 04/07/20 to correct wound dehiscence and abscess after her acute appendicitis starting from december. pt then have debilitated postsurgical abdominal pain, back pain, nausea and significant weakness. pt stated she was pretty much bed bound for 6 weeks after March. Her major c/o at this point is L sided back with overall weakness. Her pain starts from L sided lumbar region and buttock area which radiates to L lateral leg, along with tingling/ numbness. She also has significant night pain 1-2 times a week. She currently has difficulty sitting >30 mins, climbing stair without support, and overall walk (pt walks with WBOS now). She has fallen 3 times since March which make hers very anxious about going out of her house. 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 Pt stated her back pain is surely affected by this procedure and her frequent kidney stone as well Future Testing and Treatments Planned Pt is currently seeing Dr. Ji for pain management (OMT) Treatment Goals Patient/Caregiver Goals 1. to be able to walk with normal gait pattern 2. reduce her fall risks 3. Overall LE and core strengthening. Prior Functional Status Baseline Function- ADL's Independent Baseline Function- Mobility Independent Baseline Function- Gait WNL Baseline Function- Work/School pt currently works from home Baseline Function- Recreation/Hobbies pt likes to hike and scuba diving normally walk 2 miles per day Current Functional Impairments (Reported) Functional Limitations- Mobility/Gait uses UE support for stair climbing, STS, transfers Personal Factors Other Personal Factors That May Effect multiple abdominal surgery Therapy/Recovery within last year. PT-OP-C Subjective Start: 09/21/20 08:09 Freq: Status: Active Protocol: Document 11/07/20 10:33 HH (Rec: 11/07/20 12:23 HH [id number]) OP-PT Subjective Patient Comments Patient Comments Alida been feeling good for the past week except today. I feel tight at the center today and i dont know why. Patient Reported Progress Improving PT-OP-D Balance Start: 09/21/20 08:09 Freq: Status: Active Protocol: Document 09/21/20 09:00 HH (Rec: 09/21/20 11:11 HH [email or web address]) Balance Tests Single Limb Standing Single Limb- Right 2s Single Limb- Left 1s PT-OP-F Manual Assessment Start: 09/21/20 08:09 Freq: Status: Active Protocol: Document 09/21/20 09:00 HH (Rec: 09/21/20 11:11 HH [email or web address]) Manual Assessments Soft Tissue Assessment Soft Tissue Mobility Assessment significant pain to light pressure at L gluteal muscle group and piriformis sensitive to touch and pressure at the entire abdominal region. PT-OP-G Mobility & Gait Start: 09/21/20 08:09 Freq: Status: Active Protocol: Document 09/21/20 09:00 HH (Rec: 09/21/20 11:11 HH [email or web address]) OP Mobility Evaluation Bed Mobility Rolling pt rotates her LEs and upper body seperately but very slowly d/t pain Supine to and from Sit pt uses elbow then extend her arms to reach long sit position followed by slow pivoting to sit at EOB Transfers Sit to Stand pt uses both UEs to push off from chair and slowly walk herself with UEs on thighs to uprigth position OP Gait Assessment Gait Deviations General Gait Pattern Antalgic,Decreased Stride Length,Decreased Feet Clearance,Lateral Trunk Lean Factors Limiting Gait Function Factors Limiting Gait Function Decreased Activity Tolerance, Decreased Sensation,Decreased Strength,Limited Range of Motion,Pain,Poor Balance,Poor Safety Awareness Comments Gait Comments pt amb with WBOS with a L toe out gait, along with decreased stance time on LLE Stair Climbing Evaluation Technique/Endurance Stair Climbing Direction Ascend and Descend Stair Climbing Technique Step to Step Comments Stair Climbing Comments B support on handrails with step to pattern. Leading with L to ascend, and R to descend. PT-OP-H Neuro Start: 09/21/20 08:09 Freq: Status: Active Protocol: Document 09/21/20 09:00 HH (Rec: 09/21/20 11:11 [email or web address]) Sensation Evaluation Gross Sensation Gross Sensation Left LE Impaired Sensation Description Numbness,Tingling Dermatome Impairments L5,S1 Deep Tendon Reflex & Clonus Assessment Deep Tendon Reflex Bilateral Achilles Deep Tendon Reflex 2+ Normal Bilateral Patellar Deep Tendon Reflex 2+ Normal PT-OP-J Posture/Palpation/Skin Start: 09/21/20 08:09 Freq: Status: Active Protocol: Document 09/21/20 09:00 HH (Rec: 09/21/20 17:04 [email or web address]) Posture Evaluation Position Standing Evaluation View Anterior Weight Distribution Decreased Wt.Bear on (L) Hip Posture (L) Externally Rotated Knee Posture (L) Ext. Tibial Torsion PT-OP-K Range of Motion Start: 09/21/20 08:09 Freq: Status: Active Protocol: Document 09/21/20 09:00 HH (Rec: 09/21/20 17:04 [email or web address]) Hip Goniometric Range of Motion Hip Right Active Comments ASLR= 15 PSLR= 55 (significant weakness noted. Pt reports difficulty engaging abdominal muscles) Left Active Comments ASLR= 35 PSLR= 62\ (significant weakness noted. pt reports difficulty engaging abdominal muscles) Hip ROM Limitations Hip ROM Limitations Soft Tissue Tightness,Muscle Weakness,Pain PT-OP-M Strength Start: 09/21/20 08:09 Freq: Status: Active Protocol: Document 09/21/20 09:00 HH (Rec: 09/21/20 17:04 [email or web address]) Hip Strength Hip Manual Muscle Testing Right Flexion (L2) 4 Good Extension (S1) 4 Good Abduction 4 Good External Rotation 4 Good Internal Rotation 4 Good Left Flexion (L2) 3+ Fair+ Extension (S1) 3+ Fair+ Abduction 3+ Fair+ External Rotation 3+ Fair+ Internal Rotation 3+ Fair+ Knee Strength Knee Manual Muscle Testing Right Flexion (S2) 4+ Good+ Extension (L3) 4+ Good+ Left Flexion (S2) 4- Good- Extension (L3) 4+ Good+ Ankle/Foot Strength Ankle and Foot Manual Muscle Testing Right Dorsiflexion (L4) 4+ Good+ Plantarflexion (S1) 4+ Good+ Inversion 4+ Good+ Eversion (S1) 4+ Good+ Left Dorsiflexion (L4) 4+ Good+ Plantarflexion (S1) 4+ Good+ Inversion 4+ Good+ Eversion (S1) 4+ Good+ Toe Strength Toe Manual Muscle Testing Right Great Toe Flexion 4+ Good+ Extension 4+ Good+ Left Great Toe Flexion 4 Good Extension 4 Good PT-OP-Q Treatments Start: 09/21/20 08:09 Freq: Status: Active Protocol: Document 11/07/20 10:33 HH (Rec: 11/07/20 12:23 [id number]) Therapeutic Exercises Supine Exercises bridging Supine Exercise Name pt clear off table. Side bilateral Equipment Used green ball between knees. Reps/Minutes 8x2 Comments cues on PPT first Standing Exercises pelvic tilt Reps/Minutes 8 x2 Comments cues on neutral spine Gait Training Gait Activity ground level Surface ground level Distance/Duration 20 x 8 Treatment Focus glute and abdominal engagement Comments with PPT Manual Therapy Treatment Soft Tissue Mobilization QL Body Location B QL Mobilization Type Myofascial Release,Sustained Pressure,Trigger Point Release Intensity/Depth Superficial Body Position Sidelying Comments significant tonicity noted but reduced after. hip flexors Mobilization Type Myofascial Release Intensity/Depth Superficial Body Position Hooklying Comments pt needs cues to facilitate deep breathing for relaxation. abdominal Body Location B upper and lower quardrant Mobilization Type Myofascial Release Intensity/Depth Superficial Body Position Hooklying Comments reduced tenderness to light pressure PT-OP-T Assessment and Plan Start: 09/21/20 08:09 Freq: Status: Active Protocol: Document 11/07/20 10:33 HH (Rec: 11/07/20 12:23 [id number]) Physical Therapy Assessment Goals falls Impairment pt had 3 falls over the past 6 months Short Term Goal (STG) pt will show improved overall strength, balance, gait pattern and safety awareness therefore she will not fall again in the future. STG Duration 12 weeks activity tolerance Impairment pt needs UE support for stair climbing and STS Short Term Goal (STG) pt will show improved leg strength to be able to complete 5 times sit to stand without using UE support STG Duration 6 weeks Usp Goal (LTG) pt will show improved single leg strength to be able to climb stairs with step over pattern and 1UE support on handrail LTG Duration 12 weeks gait Impairment pt walks with a L toe out gait Short Term Goal (STG) pt will show improved single leg balance to > 5 seconds on each LE STG Duration 4 weeks [employer] Goal (LTG) pt will show improved single leg balance to >10 seconds on each LE in order to normalize her gait without L toe out/ WBOS pattern LTG Duration 8 weeks Owestry Impairment pt scores 60 on Owestry Short Term Goal (STG) pt will be able to score <45 on owestry to show improved quality of life STG Duration 6 weeks Usp Goal (LTG) pt will be able to score <30 on owestry to show improved quality of life LTG Duration 12 weeks Assessment Summary Assessment pt came in with increased tightness at both lateral abdominal region but better after manual therapy. Pt also has significant tonicity at B QL and parapsinals possibly d/ t staying in extended position since her surgery. Spent time educating her on abdominal engagement and postural awareness to reduce lumbar stress in WB activities. Pt shows good understanding. Will contiue core stabilization work next time. Physical Therapy Plan Frequency and Duration Frequency of Treatment 2x/Week Duration of Treatment 12 weeks Plan of Care Start Date 09/21/20 Plan of Care End Date 12/20/20 Therapeutic Interventions Therapeutic Interventions Aquatic Therapy,Balance Training,Gait Training,Home Exercise Program,Joint Mobilizations,Manual Therapy, Neuromuscular Re-education, Patient/Caregiver Education, Self-Care/Home Management,Soft Tissue Mobilization,Taping, Therapeutic Activities, Therapeutic Exercises Modalities Biofeedback,Cold Pack/Ice Massage,Electric Stimulation, Hot Packs,Infrared Therapy, Iontophoresis,Traction- Mechanical,Ultrasound Next Visit Focus/Plan Next Note Type Treatment Note Next Visit Plan slump test, slr initiate manual therapy on L glute, piriformis gentle trunk ROM FERNANDO pelvic tilt briding with Ppt relaxtion technique if needed
--- NOTE | 2020-11-10 16:23 | PT.OPDS ---
Current Diagnoses Other chronic pain (11/07/20) Torticollis (11/07/20) Lumbago with sciatica, unspecified side (11/07/20) Other malaise (11/07/20) Visit Care Team Role Provider Type Syed Ji DO Attending Provider Physician Family Provider Primary Care Provider Referring Provider Specialty: Family Practice Address: [address] [place] [address] Email: Visit Number Visit Number 11/11 Discharge Summary PT-OP-T Assessment and Plan Start: 09/21/20 08:09 Freq: Status: Active Protocol: Document 11/10/20 16:23 (Rec: 11/10/20 16:23 [id number]) Physical Therapy Plan Discharge Physical Therapy Discharge Reasons Change in Medical Status Discharge Comments pt called in and reported she is going to have a surgery soon d/t ventral hernia diagnosed from CT scan. Requested to called all PT appointments until further notice.
== END 2020-12-14 14:50 | disposition home or self-care (01) ==
LOC: PHYS 10:30
PROVIDERS: Family Provider Family Medicine; PCP Family Medicine; Referring Provider Family Medicine; Visit Provider Family Medicine
DX: R53.81 Other malaise (principal); M43.6 Torticollis; M54.40 Lumbago with sciatica, unspecified side; G89.29 Other chronic pain
CPT/HCPCS: 97110; 97140; 97163

== ENCOUNTER → 2020-11-09 16:31 | Outpatient (CLI) | payer OTHER, SELFPAY ==
[2020-05-09 10:21] VITALS: BMI 27.4
--- NOTE | 2020-11-09 16:34 | DI.CT.S_ITS ---
PROCEDURE: CT ABDOMEN PELVIS W CON INDICATIONS: abdominal pain, post op pain TECHNIQUE: After the administration of oral and intravenous contrast, axial sections were acquired from the lung bases to the pubic symphysis. Coronal and sagittal reformats were performed. For radiation dose reduction, the following was used: automated exposure control, adjustment of mA and/or kV according to patient size. COMPARISON:[facility], CT, CT ABDOMEN PELVIS W CON, 04/07/2020, 17:09. FINDINGS: Image quality: Excellent. Lung bases: 8 mm as well as adjacent 5 mm nodules are noted within the right upper and middle lobes, unchanged. In addition, subcentimeter nodules in the left base are unchanged. Heart: No significant findings. ABDOMEN: Liver: Liver is enlarged with steatosis. Gallbladder: The gallbladder is contracted and grossly unremarkable. Biliary ducts: Unremarkable. Pancreas: Unremarkable. Spleen: Unremarkable. Adrenal Glands: Unremarkable. Kidneys and Ureters: Right kidney has been removed. Renal fossa is unremarkable. Left kidney is within normal limits. 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 No obstruction. No interval change. Stomach and Bowel: Stomach, small bowel loops, and colon are unremarkable. The appendix is been removed. No right lower quadrant fluid collection or inflammatory change. Peritoneum: No abnormal intraperitoneal fluid. No free air. Ventral Wall: There is a bowel containing ventral hernia with rectus diastasis measuring 9.6 cm which has increased from 5.5 cm in 2020. Bowel loops demonstrate no incarceration or strangulation. No bowel obstruction. Abdominal Nodes: No retroperitoneal or mesenteric adenopathy by size criteria. Vessels: Aorta and inferior vena cava are normal in size. PELVIS: Pelvic Organs: Unremarkable. Bladder: Unremarkable. Pelvic Nodes: No enlarged lymph nodes. Miscellaneous: No inguinal hernias are seen. Bones: Unremarkable. IMPRESSION: 1. Appendectomy changes without right lower quadrant inflammation or fluid collection. 2. Unchanged appearance of subcentimeter pulmonary nodules. 3. More prominent appearance of ventral hernia compared to 2019. No obstruction. Dictated by: Jing Esposito M.D. on 11/09/2020 at 18:22 Approved by: Jing Esposito M.D. on 11/09/2020 at 18:36
[2020-11-09 17:07] LABS: BUN Creatinine Ratio 20.4 (6-22); Blood Urea Nitrogen 23 mg/dL (7-17); Calcium 9.6 mg/dL (8.4-10.2); Carbon Dioxide 27 mmol/L (22-32); Chloride 107 mmol/L (98-107); Estimated Glomerular Filt Rate 48.6 mL/min (>60); Glucose 101 mg/dL (80-110); HEMOLYSIS < 15 (0-50); Potassium 3.8 mmol/L (3.4-5.1); Sodium 140 mmol/L (137-145)
== END ==
PROVIDERS: Family Provider Family Medicine; PCP Family Medicine; Referring Provider Family Medicine; Visit Provider Family Medicine
DX: R14.0 Abdominal distension (gaseous) (principal); G89.18 Other acute postprocedural pain; R10.9 Unspecified abdominal pain; R91.8 Other nonspecific abnormal finding of lung field; K43.9 Ventral hernia without obstruction or gangrene; K76.0 Fatty (change of) liver, not elsewhere classified
CPT/HCPCS: 36415; 74177; 80048

== ENCOUNTER → 2021-02-02 13:00 | Outpatient (CLI) | payer OTHER, SELFPAY ==
[2020-05-09 10:21] VITALS: BMI 27.4
--- NOTE | 2021-02-02 | DI.MG.S_ITS ---
BILATERAL DIGITAL SCREENING MAMMOGRAM 3D/2D WITH CAD: 02/02/2021 CLINICAL: Routine screening. Comparison is made to exams dated: 02/23/2018 mammogram, 04/12/2015 mammogram, and 08/22/2006 mammogram - [facility]. The tissue of both breasts is heterogeneously dense. This may lower the sensitivity of mammography. Current study was also evaluated with a Computer Aided Detection (CAD) system. There are benign calcifications in the right breast. No significant masses, calcifications, or other findings are seen in either breast. There has been no significant interval change. IMPRESSION: BENIGN There is no mammographic evidence of malignancy. A 1 year screening mammogram is recommended. This exam was interpreted at Station ID: [id number]. NOTE: For mammograms, a report in lay terms will be sent to the patient. Approximately 15% of breast malignancies will not be visualized mammographically. In the management of a palpable breast mass, a negative mammogram must not discourage biopsy of a clinically suspicious lesion. Electronically Signed By: Cleopatra lara/yanick:02/02/2021 14:32:06 letter sent: Normal Exam ACR BI-RADS Category 2: Benign Finding(s) 3342F
== END ==
PROVIDERS: Family Provider Family Medicine; PCP Family Medicine; Referring Provider Family Medicine; Visit Provider Family Medicine
DX: Z12.31 Encounter for screening mammogram for malignant neoplasm of breast (principal)
CPT/HCPCS: 77063; 77067

== ENCOUNTER → 2021-02-20 10:01 | Outpatient (CLI) | payer OTHER, SELFPAY ==
[2020-05-09 10:21] VITALS: BMI 27.4
[2021-02-20 11:08] LABS: Hematocrit 41.5 % (36-46); Hemoglobin 14.1 g/dL (12.0-16.0); Mean Corpuscular HGB Conc 33.9 % (30-36); Mean Corpuscular Hemoglobin 31.3 PG (26-34); Mean Corpuscular Volume 92.3 fL (80-100); Platelet Count 186 X10^3/uL (150-400); Red Blood Cell Count 4.49 X10^6/uL (4.0-5.2); Red Cell Distribution Width 14.5 % (11.6-14.8); White Blood Cell Count 6.7 X10^3/uL (4.5-11.0)
[2021-02-20 11:12] LABS: Creatinine Urine Random 88.1 mg/dL; Protein (Total) Urine Random 16 mg/dL (0-12); Protein Creatinine Ratio Urine 0.18 GRAM/24H
[2021-02-20 11:53] LABS: BUN Creatinine Ratio 17.9 (6-22); Blood Urea Nitrogen 24 mg/dL (7-17); Calcium 9.1 mg/dL (8.4-10.2); Carbon Dioxide 29 mmol/L (22-32); Chloride 102 mmol/L (98-107); Estimated Glomerular Filt Rate 39.8 mL/min (>60); Glucose 87 mg/dL (80-110); HEMOLYSIS < 15 (0-50); Potassium 4.3 mmol/L (3.4-5.1); Sodium 137 mmol/L (137-145)
== END ==
PROVIDERS: Family Provider Family Medicine; PCP Family Medicine; Referring Provider Internal Medicine Nephrology; Visit Provider Internal Medicine Nephrology
DX: N05.9 Unspecified nephritic syndrome with unspecified morphologic changes (principal); D70.9 Neutropenia, unspecified; D63.1 Anemia in chronic kidney disease; R80.9 Proteinuria, unspecified
CPT/HCPCS: 36415; 80048; 82570; 84156; 85027

== ENCOUNTER → 2021-02-22 13:06 | Outpatient (CLI) | payer OTHER, SELFPAY ==
[2020-05-09 10:21] VITALS: BMI 27.4
--- NOTE | 2021-02-22 13:07 | DI.MRI.S_ITS ---
PROCEDURE: MR PELVIS WO CON INDICATIONS: weakness TECHNIQUE: Noncontrast coronal and sagittal T1 spin echo and STIR, and axial T1 spin echo and T2 fast spin echo with fat saturation through the bony pelvis. COMPARISON: [facility], CT, CT ABDOMEN PELVIS W CON, 11/09/2020, 17:53. FINDINGS: Image quality: Excellent. Bones: Focal edema is seen along the ilial aspect of the right sacroiliac joint with a possible small joint effusion. The bone marrow in the pelvis is otherwise normal in signal intensity. Mild degenerative changes are seen at the pubic symphysis and bilateral hips. No intraosseous lesions or fractures identified. There is grade 1 anterolisthesis of L4 on L5. Disc desiccation and facet hypertrophy are also noted in the lower lumbar spine. Tendons: Mild insertional tendinosis of the gluteus medius and minimus tendons bilaterally. Trace bilateral trochanteric bursal effusions. The proximal iliotibial band appears intact. The iliopsoas tendon appears intact, without adjacent bursal fluid collections or evidence for impingement syndrome. The origin of the hamstring tendon is intact at the ischial tuberosity. The straight and reflected heads of the rectus femoris muscle origin appear intact, as well as the conjoint tendon. Soft tissues: There is generalized mild grade 1-2 fatty infiltration of the musculature surrounding the hips. No free pelvic fluid. Bladder wall thickness is normal. Genitourinary structures and bowel loops appear normal where visualized. A ventral hernia is seen in the lower abdomen with a wide neck measuring up to 9.6 x 8.7 cm, which contains peritoneal fat and loops of small bowel. No signs of bowel obstruction. 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 No hydronephrosis. IMPRESSION: 1. Mild edema adjacent to the right sacroiliac joint may be secondary to a mild nonspecific sacroiliitis or possibly mild degenerative changes. 2. Bilateral distal gluteus medius and minimus tendinosis with overlying trace trochanteric bursal effusions. 3. Mild degenerative changes in the hips, pubic symphysis, and included lumbar spine. 4. Right lower quadrant transplanted kidney is mildly atrophic with multiple nonobstructing renal calculi. 5. Ventral abdominal hernia contains peritoneal fat and loops of small bowel without signs of bowel obstruction. Dictated by: Jsoe Roberto Ramon M.D. on 02/22/2021 at 16:43 Approved by: Jose Roberto Ramon M.D. on 02/22/2021 at 16:53
== END ==
PROVIDERS: Family Provider Family Medicine; PCP Family Medicine; Referring Provider Family Medicine; Visit Provider Family Medicine
DX: R29.898 Other symptoms and signs involving the musculoskeletal system (principal); M25.48 Effusion, other site; M43.16 Spondylolisthesis, lumbar region; N20.0 Calculus of kidney; K43.9 Ventral hernia without obstruction or gangrene; Z94.0 Kidney transplant status
CPT/HCPCS: 72195

== ENCOUNTER → 2021-02-23 11:36 | Outpatient (CLI) | payer OTHER, SELFPAY ==
[2020-05-09 10:21] VITALS: BMI 27.4
[2021-02-23] MEDS: COVID-19 VACC #3, MRNA(MOD) 50 MCG/0.25 ML VIAL IM (11:41)
== END ==
PROVIDERS: Family Provider Family Medicine; PCP Family Medicine; Visit Provider Internal Medicine
DX: Z23 Encounter for immunization (principal)
CPT/HCPCS: 0013A; 91301

== ENCOUNTER → 2022-02-28 11:10 | Outpatient (CLI) | payer MEDICARE, OTHER, SELFPAY ==
[2020-05-09 10:21] VITALS: BMI 27.4
[2022-03-01 14:08] LABS: Fecal Immunochemical Test Negative (Negative)
== END ==
PROVIDERS: Family Provider Family Medicine; PCP Family Medicine; Referring Provider Family Medicine; Visit Provider Family Medicine
DX: Z12.11 Encounter for screening for malignant neoplasm of colon (principal)
CPT/HCPCS: 82274

== ENCOUNTER → 2022-03-12 07:28 | Outpatient (CLI) | payer MEDICARE, OTHER, SELFPAY ==
[2020-05-09 10:21] VITALS: BMI 27.4
--- NOTE | 2022-03-12 | DI.MG.S_ITS ---
BILATERAL DIGITAL SCREENING MAMMOGRAM 3D/2D WITH CAD: 03/12/2022 CLINICAL: Routine screening. Family history of breast cancer. Comparison is made to exams dated: 02/02/2021 mammogram, 02/23/2018 mammogram, and 04/12/2015 mammogram - [facility]. Both breasts are heterogeneously dense, which may obscure small masses (category c / 51-75% glandular tissue). Current study was also evaluated with a Computer Aided Detection (CAD) system. There are benign calcifications in the right breast. No significant masses, calcifications, or other findings are seen in either breast. There has been no significant interval change. IMPRESSION: BENIGN There is no mammographic evidence of malignancy. A 1 year screening mammogram is recommended. Based on Tyrer-Cuzick model (a risk assessment model), the patient's lifetime risk is 27.5% and her 10 year risk is 14.0%. If a patient has an elevated risk, a more comprehensive evaluation should be considered and/or a referral to a genetic counselor. The [place] [employer], [place] [employer], and NCCN Guidelines advise the consideration of Breast MRI as an adjunct to screening mammography in patients whose Lifetime risk to develop breast cancer is 20% or higher. This exam was interpreted at Station ID: [id number]. NOTE: For mammograms, a report in lay terms will be sent to the patient. Approximately 15% of breast malignancies will not be visualized mammographically. In the management of a palpable breast mass, a negative mammogram must not discourage biopsy of a clinically suspicious lesion. Electronically Signed By: Cleopatra lara/yanick:03/12/2022 16:19:57 letter sent: Normal Exam ACR BI-RADS Category 2: Benign Finding(s) 3342F
== END ==
PROVIDERS: Family Provider Family Medicine; PCP Family Medicine; Referring Provider Family Medicine; Visit Provider Family Medicine
DX: Z12.31 Encounter for screening mammogram for malignant neoplasm of breast (principal); Z80.3 Family history of malignant neoplasm of breast
CPT/HCPCS: 77063; 77067

== ENCOUNTER → 2022-12-19 09:50 | Outpatient (CLI) | payer MEDICARE, OTHER, SELFPAY ==
[2020-05-09 10:21] VITALS: BMI 27.4
--- NOTE | 2022-12-19 09:53 | DI.ECHO.S_ITS ---
[place] [facility]---------+ [facility] +---------+ : : [address] : : : : [id number] : : : : Phone: [phone]+ Echocardiogram Report + + :Name: MARCELINO NIÑO Study Date: 12/19/2022 Height: 65 in : :[facility] ReadingLocation: Weight: 187 lb : : Gender: Female BSA: 1.9 m2 : :: 1955 Age: 67 yrs BP: 148/86 mmHg: :Reason For Study: [place] : :Ordering Physician: AGA, : :GODWIN Performed By: Melinda Fuentes : :Referring: GODWIN YUNG : + + Interpretation Summary The ejection fraction is estimated to be 60-65%. Diastolic function could not be accurately assessed due to contradictory data. The left atrium is mildly dilated. The right ventricle is normal in size and function. There is mild mitral regurgitation. Pulmonary artery pressures cannot be estimated because of the lack of a measurable TR jet velocity but the IVC suggests a CVP of around 3 mmHg. The ascending aorta is mildly enlarged, 3.8 cm. Compared to the prior study dated 01/09/2020, no significant change. Procedure: A two-dimensional transthoracic echocardiogram with color flow and Doppler was performed. The study quality was technically adequate. Comparison is made with the echocardiogram of 01/09/2020. The patient was in sinus rhythm with heart rates between 64-67 bpm during the exam. Left Ventricle: The left ventricle is normal in size and wall thickness. The ejection fraction is estimated to be 60-65%. Diastolic function could not be accurately assessed due to contradictory data. Right Ventricle: The right ventricle is normal in size and function. Atria: The left atrium is mildly dilated. Right atrial size is normal. There is no Doppler evidence for an interatrial shunt. Mitral Valve: The mitral valve is normal in structure and function. The mitral valve chordae are thickened and/or calcified. There is mild mitral regurgitation. Aortic Valve: The aortic valve is mildly calcified. The aortic valve is trileaflet. There is no aortic valve stenosis. No aortic regurgitation is present. Tricuspid Valve: The tricuspid valve is normal in structure and function. There is trace tricuspid regurgitation. Pulmonary artery pressures cannot be estimated because of the lack of a measurable TR jet velocity but the IVC suggests a CVP of around 3 mmHg. Pulmonic Valve: The pulmonic valve leaflets are thin and pliable; valve motion is normal. There is trace pulmonic regurgitation. Great Vessels: The aortic root is normal size. The ascending aorta is mildly enlarged. The IVC is of normal diameter and collapses greater than 50% with a sniff. This suggests a low right atrial pressure of 3 mm Hg. Pericardium/ Pleura There is no pericardial effusion. There is no pleural effusion. MMode/2D Measurements & Calculations LVIDd: 4.4 cm LVOT diam: 2.0 cm LVIDs: 2.9 cm Ao root diam: 2.9 cm FS: 34.8 % asc Aorta Diam: 3.8 cm IVSd: 0.97 cm Ao Arch Diam (Prox Trans): 3.0 cm LVPWd: 0.96 cm LV ledesma. diameter/BSA (cm/m^2): 2.3 LV sys. diameter/BSA (cm/m^2): 1.5 LA A2 area: 24.4 cm2 RA long axis: 5.4 cm LA A4 area: 21.0 cm2 RA area: 15.7 cm2 LA length (vol): 5.7 cm RA vol: 39.1 ml LA vol: 76.1 ml RA : 20.3 ml/m2 LA vol index: 39.6 ml/m2 IVC diam: 1.3 cm RVD1 (basal): 3.4 cm RVD2 (mid): 2.8 cm TAPSE: 2.6 cm Doppler Measurements & Calculations Ao V2 max: 126.2 cm/sec LVOT Max Alessio: 94.0 cm/sec Ao V2 mean: 95.3 cm/sec LV V1 max P.5 mmHg Ao max P.4 mmHg LV V1 VTI: 23.8 cm Ao mean P.9 mmHg JOYCELYN(I,D): 2.3 cm2 Ao V2 VTI: 31.5 cm JOYCELYN(V,D): 2.2 cm2 sev ratio: 0.76 JOYCELYN indexed to BSA (cm^2/m^2): 1.2 MV E max alessio: 88.2 cm/sec PA V2 max: 78.8 cm/sec MV A max alessio: 93.0 cm/sec PA V2 mean: 56.5 cm/sec MV E/A: 0.95 PA mean P.4 mmHg Med Peak E' Alessio: 7.0 cm/sec PA pr(Accel): 36.2 mmHg E/E' med: 12.7 Lat Peak E' Alessio: 9.1 cm/sec E/E' lat: 9.7 E/e' average: 11.2 MV dec time: 0.17 sec [facility] 71.9 ml Reading Physician:01:33 PM
== END ==
PROVIDERS: Family Provider Family Medicine; PCP Family Medicine; Referring Provider Family Medicine; Visit Provider Family Medicine
DX: I34.0 Nonrheumatic mitral (valve) insufficiency (principal); R01.1 Cardiac murmur, unspecified; I10 Essential (primary) hypertension
CPT/HCPCS: 93306

== ENCOUNTER → 2023-01-05 13:07 | Outpatient (CLI) | payer MEDICARE, OTHER, SELFPAY ==
[2020-05-09 10:21] VITALS: BMI 27.4
--- NOTE | 2023-01-05 13:10 | DI.RAD.S_ITS ---
PROCEDURE: XR FOOT RT MIN 3V INDICATIONS: right foot pain, medial aspect TECHNIQUE: 3 views of the foot were acquired. COMPARISON: [facility], CR, XR FOOT RT MIN 3V, 02/23/2019, 13:58. FINDINGS: Bones: No acute fractures or dislocations. Healed 5th metatarsal fracture. No suspicious bony lesions. Soft tissues: No tibiotalar joint effusion. Achilles tendon appears normal. IMPRESSION: No acute fracture. No osseous lesion. If symptoms and/or clinical suspicion for pathology persist, further assessment with repeat, or advanced imaging (e.g., CT, MRI, or bone scan) may be helpful for further assessment. Dictated by: Mallory Miller M.D. on 01/05/2023 at 13:34 Approved by: Mallory Miller M.D. on 01/05/2023 at 13:34
== END ==
PROVIDERS: Family Provider Family Medicine; PCP Family Medicine; Referring Provider Physician Assistant; Visit Provider Physician Assistant
DX: M79.671 Pain in right foot (principal)
CPT/HCPCS: 73630

== ENCOUNTER → 2023-06-13 07:23 | Outpatient (CLI) | payer MEDICARE, OTHER, SELFPAY ==
[2020-05-09 10:21] VITALS: BMI 27.4
--- NOTE | 2023-06-13 07:24 | DI.MG.S_ITS ---
BILATERAL DIGITAL SCREENING MAMMOGRAM 3D/2D WITH CAD: 06/13/2023 CLINICAL: Routine screening. Family history of breast cancer. Comparison is made to exams dated: 03/12/2022 mammogram, 02/02/2021 mammogram, and 02/23/2018 mammogram - [facility]. Both breasts are heterogeneously dense, which may obscure small masses (category c / 51-75% glandular tissue). Current study was also evaluated with a Computer Aided Detection (CAD) system. There are benign calcifications in the right breast. No significant masses, calcifications, or other findings are seen in either breast. There has been no significant interval change. IMPRESSION: BENIGN There is no mammographic evidence of malignancy. A 1 year screening mammogram is recommended. Based on Tyrer-Cuzick model (a risk assessment model), the patient's lifetime risk is 26.4% and her 10 year risk is 14.0%. If a patient has an elevated risk, a more comprehensive evaluation should be considered and/or a referral to a genetic counselor. The [employer], [employer], and NCCN Guidelines advise the consideration of Breast MRI as an adjunct to screening mammography in patients whose Lifetime risk to develop breast cancer is 20% or higher. This exam was interpreted at Station ID: [id number]. NOTE: For mammograms, a report in lay terms will be sent to the patient. Approximately 15% of breast malignancies will not be visualized mammographically. In the management of a palpable breast mass, a negative mammogram must not discourage biopsy of a clinically suspicious lesion. Electronically Signed By: Orlin bailey/yanick:06/13/2023 08:27:44 letter sent: Normal Exam ACR BI-RADS Category 2: Benign Finding(s) 3342F
== END ==
PROVIDERS: Family Provider Family Medicine; PCP Family Medicine; Referring Provider Family Medicine; Visit Provider Family Medicine
DX: Z12.31 Encounter for screening mammogram for malignant neoplasm of breast (principal); Z80.3 Family history of malignant neoplasm of breast; R92.333 Mammographic heterogeneous density, bilateral breasts
CPT/HCPCS: 77063; 77067

== ENCOUNTER → 2024-01-16 08:19 | Outpatient (CLI) | payer MEDICARE, OTHER, SELFPAY ==
[2020-05-09 10:21] VITALS: BMI 27.4
--- NOTE | 2024-01-16 08:45 | DI.US.S_ITS ---
PROCEDURE: US ARTERIAL DUPLEX LE RT INDICATIONS: swelling and immobility of right leg TECHNIQUE: Color and pulse Doppler interrogation was performed of the right lower extremity arterial system, with image documentation. COMPARISON: None. FINDINGS: Common femoral artery: 155 cm/sec, with triphasic flow. Deep femoral artery: 101 cm/sec, with triphasic flow. Proximal superficial femoral artery: 123 cm/sec, with triphasic flow. Mid superficial femoral artery: 128 cm/sec, with triphasic flow. Distal superficial femoral artery: 107 cm/sec, with triphasic flow. Popliteal artery: 86 cm/sec, with triphasic flow. Posterior tibial artery: 86 cm/sec, with triphasic flow. Anterior tibial artery/dorsalis pedis: 100 cm/sec, with triphasic flow. Elizalde-scale imaging description: Widely patent vessels with normal waveforms. IMPRESSION: Unremarkable right lower extremity duplex arterial ultrasound. Dictated by: Edd Haskins M.D. on 01/16/2024 at 12:06 Approved by: Edd Haskins M.D. on 01/16/2024 at 12:08
== END ==
PROVIDERS: Family Provider Family Medicine; PCP Family Medicine; Referring Provider Family Medicine; Visit Provider Family Medicine
DX: R22.41 Localized swelling, mass and lump, right lower limb (principal); R29.898 Other symptoms and signs involving the musculoskeletal system
CPT/HCPCS: 93926